=== PATIENT | male | born 1945 | race Caucasian/White ===

== ENCOUNTER 2022-05-21 13:13 | Outpatient (CLI) | payer MEDICARE, SELFPAY ==
--- NOTE | 2022-05-21 13:45 | CRLHL7_ITS ---
For Patients: As a result of the Century Cures Act, medical imaging exams and procedure reports are released immediately into your electronic medical record. You may view this report before your referring provider. If you have questions, please contact your health care provider. INDICATION: Bowel leg weakness. COMPARISON: 05/12/2022. TECHNIQUE: Sagittal T1, T2, and STIR sequences. Axial T1 and T2 weighted sequences. FINDINGS: Normal alignment. Chronic compression fracture and anterior wedging of the T12 vertebral body with postprocedural changes of kyphoplasty. No retropulsion of fracture fragments. No acute fractures. No evidence injury. No suspicious osseous lesions. Number conus terminates at L2. [id number]: No spinal canal neural foraminal narrowing. L1-2: Disc degeneration diffuse disc bulge eccentric to the left. No narrowing of spinal canal. No neural foraminal narrowing. L2-3: Mild disc degeneration. Diffuse disc bulge eccentric to the left. No narrowing of the spinal canal. No neural foraminal narrowing. L3-4: Disc degeneration posted disc bulge. No narrowing of spinal canal. No neural foraminal narrowing. L4-5: Disc degeneration posted disc bulge. No narrowing of the spinal canal. No neural foraminal narrowing. Mild facet arthropathy. L5-S1: Disc degeneration diffuse disc bulge eccentric to the left. No narrowing of spinal canal. Mild narrowing of the bilateral foramina. Mild facet arthropathy. Normal visualized SI joints. Normal paraspinal soft tissues. IMPRESSION: 1. Normal alignment. Chronic compression fracture and anterior wedging of the T12 vertebral body. 2. No acute fractures. 3. Lumbar spondylosis. 4. At L5-S1, disc degeneration. Diffuse disc bulge. No narrowing of the spinal canal. Mild narrowing of the bilateral neural foramina. 5. No spinal canal or neural foraminal narrowing at the remaining levels Dictated by Ke Siu MD @ 05/22/2022 2:03:41 PM (Electronically Signed)
== END 2022-05-21 13:14 | disposition home or self-care (01) ==
PROVIDERS: PCP Family Medicine; Visit Provider Family Medicine
DX: R29.898 Other symptoms and signs involving the musculoskeletal system (principal); M47.896 Other spondylosis, lumbar region; M51.37 Other intervertebral disc degeneration, lumbosacral region
CPT/HCPCS: 72148

== ENCOUNTER 2022-07-21 11:19 | Inpatient (IN) | payer MEDICARE, SELFPAY ==
[2022-07-21] VITALS (43 sets, daily range): BP systolic 107–147; BP diastolic 61–89; PULSE 74–122; RESP 18–26; TEMP 36.1–36.8; O2SAT 88–100; BMI 19.8; BMI 19.6
--- NOTE | 2022-07-21 12:26 | CRLHL7_ITS ---
For Patients: As a result of the Century Cures Act, medical imaging exams and procedure reports are released immediately into your electronic medical record. You may view this report before your referring provider. If you have questions, please contact your health care provider. INDICATION: Slurred speech, left facial droop, left leg weakness TECHNIQUE: Noncontrast Sagittal T1, Axial FSE T2, Flair, DWI images submitted. COMPARISON: None. FINDINGS: The scalp and calvarium are normal. The superior sagittal sinus demonstrates normal venous flow. The corpus callosum is normal in shape and signal intensity. The posterior fossa is unremarkable. The pituitary and sella are normal. The brainstem and craniocervical junction are unremarkable. The upper cervical spinal cord and spine are normal. 9 millimeter area within the right cerebellum displaying restricted diffusion with decreased associated ADC signal intensity. Associated increased T2 FLAIR signal intensities. Multifocal old bilateral basal ganglia and centrum semiovale and garcia radiata. The susceptibility weighted sequences reveal no evidence of acute or chronic hemorrhage. The ventricles are normal in size and position without evidence of hydrocephalus. There is mild, age-appropriate generalized atrophy. The axial FLAIR images show hyperintensities in the deep white matter, a nonspecific finding, however most commonly seen in the setting of chronic small vessel ischemic changes. Susceptibility artifacts degrades evaluation of the sinuses. Partial opacification of the mastoid air cells bilaterally. Normal flow voids are demonstrated in the carotid arteries and basilar artery. IMPRESSION: 1. Acute right cerebellar lacunar infarct. 2. Additional bilateral multifocal lacunar infarcts. Dictated by Vinicius Rob MD @ 07/21/2022 7:32:50 PM (Electronically Signed)
--- NOTE | 2022-07-21 12:27 | CRLHL7_ITS ---
For Patients: As a result of the Century Cures Act, medical imaging exams and procedure reports are released immediately into your electronic medical record. You may view this report before your referring provider. If you have questions, please contact your health care provider. Indication: Left hand cold, week Technique: Multi-planar multi-weighted magnetic resonance imaging of the cervical spine was performed without administration of intravenous contrast using the standard cervical spine protocol. COMPARISON: Brain MRI same day Findings: Sagittal images: The cervical spine is in the normal anatomic alignment. Vertebral bodies demonstrate normal signal intensity on all sequences. No acute fracture is identified. However, if trauma is suspected, a CT scan would be a more sensitive examination for fractures. The craniocervical junction is normal. The spinal cord demonstrates normal signal intensity on all sequences. Intervertebral disk heights show mild multilevel disc desiccation. No annular tear is identified. No soft tissue abnormality is identified. Normal signal voids are present in the vertebral arteries. Axial images: C2-3: Tiny bulge. There is no facet arthropathy. There is no uncovertebral joint disease. There is no foraminal stenosis. There is no spinal canal stenosis. C3-4: Small bulge. There is mild facet arthropathy. There is mild uncovertebral joint disease. There is moderate bilateral foraminal stenosis. There is mild spinal canal stenosis. C4-5: Small bulge. There is moderate facet arthropathy. There is moderate uncovertebral joint disease. There is moderate left and severe right foraminal stenosis. There is mild spinal canal stenosis. C5-6: Small bulge. There is mild facet arthropathy. There is mild uncovertebral joint disease. There is no foraminal stenosis. There is cjuh-[id number] spinal canal stenosis. C6-7: The disk is normal in configuration. There is no facet arthropathy. There is no uncovertebral joint disease. There is no foraminal stenosis. There is no spinal canal stenosis. C7-T1: The disk is normal in configuration. There is no facet arthropathy. There is no uncovertebral joint disease. There is no foraminal stenosis. There is no spinal canal stenosis. Impression: Multilevel areas of cervical spondylosis most prominent at C4 through C6 levels with disc osteophyte complexes and facet hypertrophy causing mild to [id number] spinal canal stenosis with areas of moderate to severe bilateral neuroforaminal narrowing. Dictated by Vinicius Rob MD @ 07/21/2022 7:37:31 PM (Electronically Signed)
--- NOTE | 2022-07-21 12:31 | ED_ITS ---
HPI - General Adult General Chief complaint: Weakness Stated complaint: Possible stroke: left side drooping,slurred speach Time Seen by Provider: 07/21/22 12:00 History of Present Illness HPI narrative: 77-year-old man presenting to the emergency department with his daughter with concern of slurred speech. Apparently was at a neurology appointment today and was directed here due to concern of potential stroke. Has had for maybe the last year weakness in the left leg. I am unaware what the findings in a E what sounds like lumbar MRI has been. Looks to be on a recent prednisone course. This has contributed to some falls, this leg weakness. Two and half days ago had fallen asleep in his chair and woke up on the floor. Was able to get himself up. Family upon following up with him the next morning has noticed the it he had some slurring of his speech which has persisted though overall improved as well as drooping of the left face which seems to have resolved. This slurring is still quite present though. He has also had repeated coldness and possibly some weakness in his left arm apparently prompting recommendations for cervical MRI. He has not had a stroke prior. Smokes what sounds like nearly a pack a day. He wakes every morning with severely dry mouth all stuck together and is also edentulous. Not having any complaints of pain at this time. Not short of breath. Lives independently with his . was recently hospitalized for pneumonia. Daughter notes that Mr. Rothman has been often incontinent of stool and urine. They maintain at the slurring of speech is independent of the dryness of his mouth; definitely new. Related Data Home Medications Medication Instructions Recorded Confirmed acetaminophen 500 mg tablet 1,000 mg PO Q6H PRN 05/12/22 08/04/22 (Tylenol Extra Strength) inulin 2 gram chewable tablet 2 g PO DAILY 07/21/22 08/04/22 (Fiber Gummies) vtqudnay-exknplrh-iruoo acid 400 1 tab PO DAILY 07/21/22 08/04/22 mcg-vit K 20 mcg-lycop 300 mcg tablet (Men's Daily Formula) Previous Rx's Medication Instructions Recorded apixaban 5 mg tablet (Eliquis) 5 mg PO BID #60 tabs 07/25/22 ferrous sulfate 325 mg (65 mg 325 mg PO DAILYWM #30 tabs 07/25/22 iron) tablet metoprolol succinate 25 mg 25 mg PO DAILY #30 tabs 07/25/22 tablet,extended release 24 hr rosuvastatin 10 mg tablet 20 mg PO HS #60 tabs 07/25/22 Allergies Allergy/AdvReac Type Severity Reaction Status Date / Time No Known Drug Allergies Allergy Verified 08/06/22 11:17 Review of Systems Status of ROS: Reports: 10 or more systems reviewed and unremarkable except as noted in History and below PFSH [facility] Medical History Cerebellar stroke Cervical spinal stenosis Cobalamin deficiency (12/2020) Cognitive impairment Frequent falls History of alcohol abuse History of TIA (transient ischemic attack) and stroke (2012) Incontinence of bowel Incontinence of urine Iron deficiency anemia Left knee pain (11/2020) Leg weakness, bilateral Multiple lacunar infarcts Pneumonia Right knee pain (1970) Surgical History History of cataract extraction History of colectomy (2014) History of repair of left rotator cuff (2008) Status post kyphoplasty Family History Sister Diabetes Other Cancer Social History Narrative: He lives with his in [place]. She has been hospitalized for the last week. Daughter Jannette is POA. Code status is full. 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 Tobacco abuse 1-2 packs per day Does not exercise Highest level of school completed/degree received: 10th grade Smoking Status: Former smoker Do you use any of these nicotine containing products: None Second hand tobacco smoke exposure: Yes How often do you have a drink containing alcohol: monthly or less Alcohol type: beer How many standard drinks containing alcohol do you have on a typical day: 1 or 2 How often do you have six or more drinks on one occasion: Never AUDIT-C Alcohol total score: 1 Non-prescribed substance use: denies use Caffeine: Yes (soda) service: No Exam Narrative: Exam Narrative: Pleasant man. Hard of hearing. Hears better on his right ear. Speech is slurred generally but easily intelligible. Clearly edentulous. Oropharynx and lips are extremely dry. Fissuring of the tongue. Extremities are well perfused. Hands nails are stained consistent with cigarette smoking. Lower extremities with 1+ pitting edema around the ankle and the foot. Nails are thickened yellowed generally. Cranial nerves 2-12 look to be intact the than as noted he is slurring his speech. I do not appreciate weakness here now i.e. no facial drooping. Appears to have good strength in the upper extremities again will perfused. Neck is supple. Fully alert. Lungs with diminished breath sounds and trace crepitus diffusely. Cardiovascular with regular rate and rhythm amount auscultation. Abdomen is protuberant soft nontender. I did not examine the absolute deep coccygeal space but does not appear to have any skin breakdown on his person or concerning rashes. Head is otherwise atraumatic. He is bearded. Tobacco stained. Const: Vital Signs, click to edit/add: Vital Signs - 24 hr 07/21/22 11:32 07/21/22 11:45 07/21/22 11:57 Temperature 97.0 F L Pulse Rate 122 H 117 H Pulse Rate [Right Pulse Oximeter] 74 Respiratory Rate 18 Blood Pressure 107/74 Blood Pressure [Ri ght Upper Arm] 108/61 Pulse Oximetry 88 92 97 Oxygen Delivery Me thod Room Air Oxygen Flow Rate 07/21/22 12:00 07/21/22 12:02 07/21/22 12:03 Temperature Pulse Rate 115 H 114 H 113 H Pulse Rate [Right Pulse Oximeter] Respiratory Rate Blood Pressure 123/73 Blood Pressure [Ri ght Upper Arm] Pulse Oximetry 95 95 95 Oxygen Delivery Me thod Oxygen Flow Rate 07/21/22 12:15 07/21/22 12:30 07/21/22 12:31 Temperature Pulse Rate 116 H 114 H 111 H Pulse Rate [Right Pulse Oximeter] Respiratory Rate Blood Pressure 128/82 Blood Pressure [Ri ght Upper Arm] Pulse Oximetry 95 97 97 Oxygen Delivery Me thod Oxygen Flow Rate 07/21/22 12:56 07/21/22 13:00 07/21/22 13:02 Temperature Pulse Rate 112 H 112 H 112 H Pulse Rate [Right Pulse Oximeter] Respiratory Rate Blood Pressure 124/83 Blood Pressure [Ri ght Upper Arm] Pulse Oximetry 97 98 98 Oxygen Delivery Me thod Nasal Cannula Oxygen Flow Rate 2 07/21/22 13:15 07/21/22 13:30 07/21/22 13:32 Temperature Pulse Rate 112 H 109 H 109 H Pulse Rate [Right Pulse Oximeter] Respiratory Rate Blood Pressure 141/75 H Blood Pressure [Ri ght Upper Arm] Pulse Oximetry 96 97 98 Oxygen Delivery Me thod Nasal Cannula Nasal Cannula Nasal Cannula Oxygen Flow Rate 2 2 2 07/21/22 13:45 07/21/22 14:35 07/21/22 12:35 Temperature Pulse Rate 105 H Pulse Rate [Right Pulse Oximeter] 105 H Respiratory Rate 26 H Blood Pressure Blood Pressure [Ri ght Upper Arm] Pulse Oximetry 98 98 88 Oxygen Delivery Me thod Nasal Cannula Nasal Cannula Oxygen Flow Rate 2 2 Documenting provider has reviewed patient's vital signs: yes Course Course Hospital Course: Ryder is a very pleasant 77-year-old male who presented to the emergency room with his daughter on 07/21 at the behest of his neurologist (Dr. Beatty at [facility] in [place]) Force alert speech, in addition to acute on chronic lower extremity weakness, and fairly new urinary and bowel incontinence. In the emergency room, patient was subsequently diagnosed with a cerebellar CVA, PE, atypical pneumonia, and elevated troponin. He was admitted to the hospital, placed on a statin and Eliquis. Troponins were followed and peaked at 0.19; TTE findings noted above. Metoprolol initiated. Patient did not have chest pain during stay, weaned off low dose supplemental oxygen on hospital day 2. He was treated with Levaquin for pneumonia and tolerated this well; his QuantiFERON gold was negative and there was no concern for aspiration by speech therapy. Hospital course complicated by acute on chronic anemia ( normocytic, presumably iron deficient based on labs), hemoglobin rolando of 7.0, requiring 1 unit of PRBCs. + Guaiac. Given concern for bleeding, EGD performed to rule out acute upper GI bleed. no acute bleeding noted; however, patient did have a bezoar in his stomach, and recommendation is to repeat EGD in 4-6 weeks for re-evaluation. Patient will also require an outpatient colonoscopy, and he will be discharged on iron supplementation. Given patient's weakness and incontinence, MRI of lumbar spine performed without acute findings. He was seen by PT and OT, who recommended TCU placement upon discharge. Patient was medically cleared and appropriate for discharge to TCU on 07/25/2022. Follow-up recommendations for PCP: - Follow hemoglobin. Repeat EGD in 4-6 weeks, outpatient colonoscopy to evaluate anemia - Cardiology referral for NSTEMI, hypokinesis on TTE - Neurology follow-up for recent CVA Vital Signs Vital signs: Initial Vital Signs Temperature 97.0 F L 07/21/22 11:32 Temperature Source Temporal Artery Scan 07/21/22 11:32 Pulse Rate 74 07/21/22 11:32 Respiratory Rate 18 07/21/22 11:32 Blood Pressure 108/61 07/21/22 11:32 Blood Pressure Mean 76 07/21/22 11:32 Blood Pressure Position Sitting 07/21/22 11:32 Pulse Oximetry 88 07/21/22 11:32 Oxygen Delivery Method 07/21/22 11:32 Vital Signs Temperature 97.0 F L 07/21/22 11:32 Pulse Rate 74 07/21/22 11:32 Respiratory Rate 18 07/21/22 11:32 Blood Pressure 108/61 07/21/22 11:32 Pulse Oximetry 88 07/21/22 11:32 Oxygen Delivery Method 07/21/22 11:32 Temperature 98.0 F 07/25/22 11:49 Pulse Rate 99 07/25/22 11:49 Respiratory Rate 18 07/25/22 11:49 Blood Pressure 122/69 07/25/22 11:49 Pulse Oximetry 99 07/25/22 07:45 Oxygen Delivery Method 07/25/22 07:45 Oxygen Flow Rate 0 07/25/22 07:45 Medical Decision Making MDM Narrative Medical decision making narrative: Is evidently a requested by neuro will attempt to obtain MRI of the brain. Also the neck. This does not sound to be an acute situation or subacute. Unclear amount of down time though on the floor will also add CPK and hydration. Presumably is dehydrated. Unsure baseline of hypoxia in the setting of heavy smoker. MRI showing lacunar strokes. Cervical spine MRI with qxwa-zj-yfesgrpf spinal canal stenosis and bilateral foraminal narrowing at various levels. Rather elevated white count at over 20,000. Edema verses possible infiltrate on chest x-ray-I did review these images. I suspect infiltrate. CT chest-I did review these images-radiologist over-read as below. I discussed findings with radiologist. IMPRESSION: 1. There is a low clot burden pulmonary embolus primarily involving the right lower lobe. There is no evidence of right heart strain. 2. Innumerable nodules primarily at the lung bases which appear to be related to the bronchi. There are also numerous cavitary lesions at the lung bases that are thick walled. This probably does not represent hematogenous dissemination of infections such as septic emboli and is probably due to atypical infection. Consider chronic recurrent aspiration, fungal disease or mycobacterial disease. Admitted to hospitalist. Lab Data Lab results reviewed: Yes I reviewed the patient's lab results Labs: Lab Results 07/21/22 07/21/22 07/21/22 Range/Units 11:55 13:15 13:15 WBC 20.70 H (4.50-11.00) K/uL RBC 3.40 L (4.30-5.90) m/uL Hgb 10.4 L (13.5-17.5) gm/dL Hct 32.0 L (37.0-53.0) % MCV 94 (80-100) fL MCH 31 (26-34) pg MCHC 33 (32-36) gm/dL RDW Coeff of Isabel 14.8 (11.5-15.5) % Plt Count 466 H (140-440) K/uL Neut % (Auto) 92.5 H (42.0-72.0) % Lymph % (Auto) 4.0 L (20-44) % [place] % (Auto) 3.2 (0.0-11.0) % Eos % (Auto) 0.0 (0.0-7.0) % Baso % (Auto) 0.0 (0.0-3.0) % Neut # (Auto) 19.10 H (1.7-7.0) K/uL Lymph # (Auto) 0.80 L (0.90-2.90) K/uL [place] # (Auto) 0.70 (0.00-0.90) K/UL Eos # (Auto) 0.00 (0.00-0.50) K/uL Baso # (Auto) 0.00 (0.00-0.30) K/uL Abs Immat Gran (auto) 0.10 (0.00-0.30) K/uL Imm/Tot Granulo (auto) 0.3 % D-Dimer Quant (PE/DVT) (0.00-0.50) ug/ml VBG pH (7.32-7.43) VBG pCO2 (40-50) mmHG VBG pO2 (25-47) mmHG VBG HCO3 (21-28) mmol/L Sodium 144 (135-149) mmol/L Potassium 4.4 (3.6-5.1) mmol/L Chloride 113 (96-114) mmol/L Carbon Dioxide 23 (20-32) mmol/L BUN 39 H (7-30) mg/dL Creatinine 1.5 (0.5-1.5) mg/dL Estimated Creat Clear 34.94 Estimated GFR 48 ml/min Glucose 217 H (60-115) mg/dL Venous Lactic Acid (Serial Order) Calcium 8.8 (8.4-10.6) mg/dL Magnesium (1.5-2.6) mg/dL Total Bilirubin (0.1-1.5) mg/dL Direct Bilirubin (0.0-0.5) mg/dL AST (12-35) U/L ALT (4-50) U/L Alkaline Phosphatase (40-150) U/L Total Creatine Kinase 94 (54-186) U/L Troponin I (0.01-0.04) ng/mL C-Reactive Protein 22.0 H (0.5-1.0) mg/dL NT-Pro-B Natriuret Pep pg/mL Total Protein (6.0-8.3) g/dL Albumin (3.3-5.0) g/dL Ethyl Alcohol (0.01-0.03) % SARS-CoV-2 (PCR) Negative SARS-CoV-2 (Negative) HIV 1&2 Ab/P24 Ag 4thGn (Negative) Influenza Type A (PCR) Negative PCR FLU A (Negative) Influenza Type B (PCR) Negative PCR FLU B (Negative) RSV (PCR) Negative PCR RSV (Negative) TB Test (QFT) Gold Plus (Negative) 07/21/22 07/21/22 07/21/22 Range/Units 13:15 13:15 13:15 WBC (4.50-11.00) K/uL RBC (4.30-5.90) m/uL Hgb (13.5-17.5) gm/dL Hct (37.0-53.0) % MCV (80-100) fL MCH (26-34) pg MCHC (32-36) gm/dL RDW Coeff of Isabel (11.5-15.5) % Plt Count (140-440) K/uL Neut % (Auto) (42.0-72.0) % Lymph % (Auto) (20-44) % [place] % (Auto) (0.0-11.0) % Eos % (Auto) (0.0-7.0) % Baso % (Auto) (0.0-3.0) % Neut # (Auto) (1.7-7.0) K/uL Lymph # (Auto) (0.90-2.90) K/uL [place] # (Auto) (0.00-0.90) K/UL Eos # (Auto) (0.00-0.50) K/uL Baso # (Auto) (0.00-0.30) K/uL Abs Immat Gran (auto) (0.00-0.30) K/uL Imm/Tot Granulo (auto) % D-Dimer Quant (PE/DVT) 8.41 H (0.00-0.50) ug/ml VBG pH (7.32-7.43) VBG pCO2 (40-50) mmHG VBG pO2 (25-47) mmHG VBG HCO3 (21-28) mmol/L Sodium (135-149) mmol/L Potassium (3.6-5.1) mmol/L Chloride (96-114) mmol/L Carbon Dioxide (20-32) mmol/L BUN (7-30) mg/dL Creatinine (0.5-1.5) mg/dL Estimated Creat Clear Estimated GFR ml/min Glucose (60-115) mg/dL Venous Lactic Acid (Serial Order) Calcium (8.4-10.6) mg/dL Magnesium 2.6 (1.5-2.6) mg/dL Total Bilirubin 1.2 (0.1-1.5) mg/dL Direct Bilirubin 0.8 H (0.0-0.5) mg/dL AST 35 (12-35) U/L ALT 17 (4-50) U/L Alkaline Phosphatase 154 H (40-150) U/L Total Creatine Kinase (54-186) U/L Troponin I 0.13 H* (0.01-0.04) ng/mL C-Reactive Protein (0.5-1.0) mg/dL NT-Pro-B Natriuret Pep 9630 pg/mL Total Protein 7.1 (6.0-8.3) g/dL Albumin 3.3 (3.3-5.0) g/dL Ethyl Alcohol < 0.01 L (0.01-0.03) % SARS-CoV-2 (PCR) (Negative) HIV 1&2 Ab/P24 Ag 4thGn (Negative) Influenza Type A (PCR) (Negative) Influenza Type B (PCR) (Negative) RSV (PCR) (Negative) TB Test (QFT) Gold Plus (Negative) 07/21/22 07/21/22 07/21/22 Range/Units 13:15 17:24 17:24 WBC (4.50-11.00) K/uL RBC (4.30-5.90) m/uL Hgb (13.5-17.5) gm/dL Hct (37.0-53.0) % MCV (80-100) fL MCH (26-34) pg MCHC (32-36) gm/dL RDW Coeff of Isabel (11.5-15.5) % Plt Count (140-440) K/uL Neut % (Auto) (42.0-72.0) % Lymph % (Auto) (20-44) % [place] % (Auto) (0.0-11.0) % Eos % (Auto) (0.0-7.0) % Baso % (Auto) (0.0-3.0) % Neut # (Auto) (1.7-7.0) K/uL Lymph # (Auto) (0.90-2.90) K/uL [place] # (Auto) (0.00-0.90) K/UL Eos # (Auto) (0.00-0.50) K/uL Baso # (Auto) (0.00-0.30) K/uL Abs Immat Gran (auto) (0.00-0.30) K/uL Imm/Tot Granulo (auto) % D-Dimer Quant (PE/DVT) (0.00-0.50) ug/ml VBG pH 7.408 (7.32-7.43) VBG pCO2 37 L (40-50) mmHG VBG pO2 32.3 (25-47) mmHG VBG HCO3 23 (21-28) mmol/L Sodium (135-149) mmol/L Potassium (3.6-5.1) mmol/L Chloride (96-114) mmol/L Carbon Dioxide (20-32) mmol/L BUN (7-30) mg/dL Creatinine (0.5-1.5) mg/dL Estimated Creat Clear Estimated GFR ml/min Glucose (60-115) mg/dL Venous Lactic Acid (Serial Order) Calcium (8.4-10.6) mg/dL Magnesium (1.5-2.6) mg/dL Total Bilirubin (0.1-1.5) mg/dL Direct Bilirubin (0.0-0.5) mg/dL AST (12-35) U/L ALT (4-50) U/L Alkaline Phosphatase (40-150) U/L Total Creatine Kinase (54-186) U/L Troponin I (0.01-0.04) ng/mL C-Reactive Protein (0.5-1.0) mg/dL NT-Pro-B Natriuret Pep pg/mL Total Protein (6.0-8.3) g/dL Albumin (3.3-5.0) g/dL Ethyl Alcohol (0.01-0.03) % SARS-CoV-2 (PCR) (Negative) HIV 1&2 Ab/P24 Ag 4thGn Negative (Negative) Influenza Type A (PCR) (Negative) Influenza Type B (PCR) (Negative) RSV (PCR) (Negative) TB Test (QFT) Gold Plus Negative (Negative) ECG Data Attestation: I personally reviewed and interpreted this ECG as follows: (Sinus tachycardia rate 105) Discharge Plan Discharge Clinical Impression: Pulmonary emboli, Pneumonia Patient Disposition: Admitted As Inpatient Condition: Stable Activity Level: Activity as Tolerated Discharge Diet: Regular
--- NOTE | 2022-07-21 12:32 | CRLHL7_ITS ---
For Patients: As a result of the Century Cures Act, medical imaging exams and procedure reports are released immediately into your electronic medical record. You may view this report before your referring provider. If you have questions, please contact your health care provider. INDICATION: hypoxia TECHNIQUE: Chest 2 views COMPARISON: CT chest 06/06/2015 FINDINGS: Patchy ill-defined densities are present throughout both lungs. No pleural effusion or pneumothorax. Cardiac silhouette is normal. IMPRESSION: Patchy airspace densities bilaterally could represent pulmonary edema or infiltrates. Dictated by Vinicius Castro MD @ 07/21/2022 1:16:57 PM (Electronically Signed)
[2022-07-21 12:44] LABS: PCR FLU A Negative PCR FLU A (Negative); PCR FLU B Negative PCR FLU B (Negative); PCR RSV Negative PCR RSV (Negative)
[2022-07-21 12:52] LABS: SARS PCR* Negative SARS-CoV-2 (Negative)
[2022-07-21] MEDS: 0.9 % SODIUM CHLORIDE 1000 ml 1,000 ML IV (13:00)
[2022-07-21 13:37] LABS: Hemoglobin* 10.4 gm/dL (13.5-17.5); Immature Granulocytes Pct Auto 0.3 %; Mean Corpuscular HGB Conc 33 gm/dL (32-36); Mean Corpuscular Hemoglobin 31 pg (26-34); Mean Corpuscular Volume 94 fL (80-100); Monocytes Percent Auto 3.2 % (0.0-11.0); Neutrophils Percent Auto 92.5 % (42.0-72.0); Platelet Count* 466 K/uL (140-440); RDW Coefficient of Variation % 14.8 % (11.5-15.5)
[2022-07-21 13:38] LABS: Lactate Sepsis w/Reflex* 2.3 mmol/L (0.5-1.9); Slide Review Reflex No
--- NOTE | 2022-07-21 14:00 | ED.NURSE ---
hs aware of possible admit. has been taking ice chips.
[2022-07-21 14:02] LABS: D Dimer Quantitative* 8.41 ug/ml (0.00-0.50)
--- NOTE | 2022-07-21 14:14 | CRLHL7_ITS ---
For Patients: As a result of the Century Cures Act, medical imaging exams and procedure reports are released immediately into your electronic medical record. You may view this report before your referring provider. If you have questions, please contact your health care provider. INDICATION: Hypoxia with question of pneumonia. COMPARISON: A prior study of June 06, 2015 TECHNIQUE: : CT examination of the chest was performed with the uneventful intravenous administration of 100 cc of Omnipaque 350 while thin axial sections were obtained from above the apices of the lungs to the lung bases. Please note that all CT scans at this facility use dose modulation, iterative reconstruction, and/or weight-based dosing when appropriate to reduce radiation dose to as low as reasonably achievable. FINDINGS: : HEART and MEDIASTINUM: The heart size is normal. There are mildly prominent mediastinal lymph nodes are likely reactive. Thickening of the esophagus probably due to chronic reflux. Follow-up evaluation recommended PULMONARY ARTERIAL CIRCULATION: There is a low clot burden pulmonary embolus. This is best seen in the right lower lobe on series 4, image 103. There is no evidence of right heart strain. LUNGS: Biapical pleural-parenchymal scarring which predated the current abnormality. There is marked diffuse nodularity primarily at the lung bases. There are also numerous thick-walled cavitary lesions primarily at the lung bases. These are probably not hematogenous type lesions as can be seen is septic emboli but appear to be primarily hayde-bronchiolar suggesting bronchial spread of infection. This could still represent hematogenous disseminated of infection or malignancy. My favored diagnosis is atypical infection perhaps fungal or mycobacterial disease. This could also be seen in chronic recurrent aspiration. Some forms of vasculitis may create this appearance. Pulmonary consultation is recommended. PLEURAL SPACES: There is no pleural effusion, pneumothorax or pleural based mass. VISUALIZED UPPER ABDOMEN: The limited visualized upper abdominal structures appear normal. OSSEOUS STRUCTURES: Age-appropriate appearance. No acute fracture or destructive process.There has been a kyphoplasty of a vertebral body near the thoracolumbar junction TUBES and LINES: None. I discussed this case with Vinicius Vidal at 4 p.m. on July 21, 2022 IMPRESSION: 1. There is a low clot burden pulmonary embolus primarily involving the right lower lobe. There is no evidence of right heart strain. 2. Innumerable nodules primarily at the lung bases which appear to be related to the bronchi. There are also numerous cavitary lesions at the lung bases that are thick walled. This probably does not represent hematogenous dissemination of infections such as septic emboli and is probably due to atypical infection. Consider chronic recurrent aspiration, fungal disease or mycobacterial disease. Please note that all CT scans at this facility use dose modulation, iterative reconstruction, and/or weight-based dosing when appropriate to reduce radiation dose to as low as reasonably achievable. Dictated by Mundo Banuelos MD @ 07/21/2022 4:06:30 PM (Electronically Signed)
[2022-07-21 14:15] LABS: Chloride* 113 mmol/L (96-114); Potassium* 4.4 mmol/L (3.6-5.1); Sodium* 144 mmol/L (135-149)
[2022-07-21 14:18] LABS: Blood Urea Nitrogen* 39 mg/dL (7-30); Carbon Dioxide* 23 mmol/L (20-32); Creatine Kinase* 94 U/L (54-186); Creatinine* 1.5 mg/dL (0.5-1.5); Est. Creatinine Clearance* 34.94; Estimated Glomerular Filt Rate 48 ml/min
--- NOTE | 2022-07-21 14:18 | ED.NURSE ---
had an episode of psvt that spontaneously converted back to sinus.
[2022-07-21 14:19] LABS: Calcium* 8.8 mg/dL (8.4-10.6); Glucose* 217 mg/dL (60-115)
[2022-07-21 14:41] LABS: Albumin* 3.3 g/dL (3.3-5.0)
[2022-07-21 14:54] LABS: Lactate Sepsis 2 Hour 1.7 mmol/L (0.5-1.9)
[2022-07-21 14:56] LABS: NT Pro B Type NatriureticPept* 9630 pg/mL
[2022-07-21 15:07] LABS: Troponin I* 0.13 ng/mL (0.01-0.04)
--- NOTE | 2022-07-21 15:08 | PC.NURSE ---
trop 0.13, reported to Dr Vidal
[2022-07-21 15:40] LABS: Aspartate Amino Transferase* 35 U/L (12-35); Bilirubin Direct* 0.8 mg/dL (0.0-0.5); Bilirubin Total* 1.2 mg/dL (0.1-1.5); Total Protein* 7.1 g/dL (6.0-8.3)
[2022-07-21 15:41] LABS: Alanine Aminotransferase* 17 U/L (4-50); Alkaline Phosphatase* 154 U/L (40-150); Ethanol* < 0.01 % (0.01-0.03); Magnesium* 2.6 mg/dL (1.5-2.6)
--- NOTE | 2022-07-21 16:06 | ED.NURSE ---
dr kennedy in room, is interviewing pt.
--- NOTE | 2022-07-21 17:02 | ED.NURSE ---
report was called to jaqui yen. will be going to 274-negative pressure room~1800.
[2022-07-21 17:30] LABS: HCO3 VBG 23 mmol/L (21-28); PCO2 VBG 37 mmHG (40-50); PO2 VBG 32.3 mmHG (25-47); pH VBG 7.408 (7.32-7.43)
[2022-07-21 17:46] LABS: HIV 1/2/P24 Combo Screen* Negative (Negative)
--- NOTE | 2022-07-21 19:40 | P.IMHP_ITS ---
Hospitalist- H&P: HPI History of Present Illness Date Seen: 07/21/22 Chief complaint: Possible stroke Narrative: Ryder Rothman is a 77 year old male admitted with acute on chronic weakness. Patient has had progressive problems with ambulation with frequent falls at home. He went to the neurologist's today where he was seen to have evidence of a stroke. He was referred to the emergency room for evaluation. Patient is unable to give much detail of his history. His son-in-law who is present indicates that Thursday morning he had clear evidence of left-sided weakness. He had fallen out of a chair and had difficulty getting up. He was having some difficulties with his left face drooping his left arm and leg being weak. He was drooling out of the left corner of his mouth. He was having some slurring of his speech. All of this has gotten somewhat better over the weekend. Prior to Thursday he had also had problems walking with weakness in his legs. The neurologist was evaluating him for that chronic weakness and imbalance. His was hospitalized here for a week with pneumococcal pneumonia. She just went home yesterday. He has had a cough productive of yellow sputum. He has COPD and is an ongoing smoker. He has had some recent diarrhea. No vomiting. He does report chronic rectal and urinary incontinence problems. Daughter, Jannette, her have both noted that he is more forgetful and occasionally confused. Review of Systems Narrative: Patient is unable to give much review of systems the above history is primarily obtained from the son-in-law and the medical record. [facility] Medical History (Updated 07/21/22 @ 20:28 by Romeo Godoy MD) Cerebellar stroke Cervical spinal stenosis Cobalamin deficiency (12/2020) Frequent falls History of alcohol abuse History of TIA (transient ischemic attack) and stroke (2012) Left knee pain (11/2020) Multiple lacunar infarcts Right knee pain (1970) Surgical History History of cataract extraction History of colectomy (2014) History of repair of left rotator cuff (2008) Status post kyphoplasty Family History Sister Diabetes Other Cancer Social History (Updated 07/21/22 @ 20:19 by Romeo Godoy MD) Narrative: He lives with his in [place]. She has been hospitalized for the last week. Daughter Jannette is POA. Code status is full. 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 Tobacco abuse 1-2 packs per day Does not exercise Smoking Status: Current every day smoker What tobacco products do you use: cigarettes Years smoked: 62 Do you use any of these nicotine containing products: None Second hand tobacco smoke exposure: Yes How often do you have a drink containing alcohol: monthly or less How many standard drinks containing alcohol do you have on a typical day: 1 or 2 AUDIT-C Alcohol total score: 1 Non-prescribed substance use: denies use service: No Meds Home Medications and Allergies Home Medications Medication Instructions Recorded Confirmed Type acetaminophen 500 mg tablet 1,000 mg PO Q6H PRN 05/12/22 07/21/22 History (Tylenol Extra Strength) aspirin 81 mg tablet,delayed 81 mg PO DAILY 07/21/22 07/21/22 History release (Adult Aspirin Regimen) inulin 2 gram chewable tablet 2 g PO DAILY 07/21/22 07/21/22 History (Fiber Gummies) jhzpqvax-smxolysi-bmcra acid 400 1 tab PO DAILY 07/21/22 07/21/22 History mcg-vit K 20 mcg-lycop 300 mcg tablet (Men's Daily Formula) Allergies Allergy/AdvReac Type Severity Reaction Status Date / Time No Known Drug Allergies Allergy Verified 07/21/22 14:58 Exam Narrative: Exam Narrative: He is alert and appears in no distress. His speech is somewhat difficult to understand. According to the son-in-law this is a little worse than usual. He has a very dry mouth and a prominent tongue and his dentures are absent. He is otherwise fluent with his speech and has no word-finding difficulties. Also has no problems with his speech comprehension. Minimal to no facial asymmetry. He has intact sensation to both sides of his face. Extraocular movements are full. Visual carmen are intact. No obvious visual field neglect. Pupils are equal round and reactive to light. Neck is supple without mass or adenopathy. Respirations with diminished breath sounds throughout. BiBasilar crackles noted. Cardiovascular: S1, S2, regular tachycardia. No gallop or rub. Abdomen: Bowel sounds active. Abdomen is soft without tenderness or mass. Extremities without significant edema. Diminished pedal pulses bilaterally. No rash. Upper extremity strength on the right is normal. 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 Kvkfnh-xhux-btsxqn is relatively accurate and rapid bilaterally. Lower extremities with 4/5 strength on the left at the knee and hip. He can barely lift his left leg off the bed. He has difficulty with hip flexion, knee flexion and extension. Dorsiflexion of the left ankle and toes is 4- over 5 as is plantar flexion of the left foot. Right lower extremity is normal. He is unable to do heel jasmine with either leg. The left leg cannot even get the heel to the jasmine Const: Vital Signs, click to edit/add: Vital Signs - 24 hr 07/21/22 11:32 07/21/22 11:45 07/21/22 11:57 Temperature 97.0 F L Pulse Rate 122 H 117 H Pulse Rate [Right Pulse Oximeter] 74 Respiratory Rate 18 Blood Pressure 107/74 Blood Pressure [Ri ght Upper Arm] 108/61 Pulse Oximetry 88 92 97 Oxygen Delivery Me thod Room Air Oxygen Flow Rate 07/21/22 12:00 07/21/22 12:02 07/21/22 12:03 Temperature Pulse Rate 115 H 114 H 113 H Pulse Rate [Right Pulse Oximeter] Respiratory Rate Blood Pressure 123/73 Blood Pressure [Ri ght Upper Arm] Pulse Oximetry 95 95 95 Oxygen Delivery Me thod Oxygen Flow Rate 07/21/22 12:15 07/21/22 12:30 07/21/22 12:31 Temperature Pulse Rate 116 H 114 H 111 H Pulse Rate [Right Pulse Oximeter] Respiratory Rate Blood Pressure 128/82 Blood Pressure [Ri ght Upper Arm] Pulse Oximetry 95 97 97 Oxygen Delivery Me thod Oxygen Flow Rate 07/21/22 12:56 07/21/22 13:00 07/21/22 13:02 Temperature Pulse Rate 112 H 112 H 112 H Pulse Rate [Right Pulse Oximeter] Respiratory Rate Blood Pressure 124/83 Blood Pressure [Ri ght Upper Arm] Pulse Oximetry 97 98 98 Oxygen Delivery Me thod Nasal Cannula Oxygen Flow Rate 2 07/21/22 13:15 07/21/22 13:30 07/21/22 13:32 Temperature Pulse Rate 112 H 109 H 109 H Pulse Rate [Right Pulse Oximeter] Respiratory Rate Blood Pressure 141/75 H Blood Pressure [Ri ght Upper Arm] Pulse Oximetry 96 97 98 Oxygen Delivery Me thod Nasal Cannula Nasal Cannula Nasal Cannula Oxygen Flow Rate 2 2 2 07/21/22 13:45 07/21/22 14:35 07/21/22 12:35 Temperature Pulse Rate 105 H Pulse Rate [Right Pulse Oximeter] 105 H Respiratory Rate 26 H Blood Pressure Blood Pressure [Ri ght Upper Arm] Pulse Oximetry 98 98 88 Oxygen Delivery Me thod Nasal Cannula Nasal Cannula Oxygen Flow Rate 2 2 07/21/22 14:00 07/21/22 14:02 07/21/22 14:15 Temperature Pulse Rate 105 H 104 H 104 H Pulse Rate [Right Pulse Oximeter] Respiratory Rate Blood Pressure 147/89 H Blood Pressure [Ri ght Upper Arm] Pulse Oximetry 98 99 98 Oxygen Delivery Me thod Oxygen Flow Rate 07/21/22 14:30 07/21/22 14:32 07/21/22 14:45 Temperature Pulse Rate 104 H 104 H 103 H Pulse Rate [Right Pulse Oximeter] Respiratory Rate Blood Pressure 133/74 Blood Pressure [Ri ght Upper Arm] Pulse Oximetry 98 98 98 Oxygen Delivery Me thod Oxygen Flow Rate 07/21/22 15:09 07/21/22 15:15 07/21/22 15:30 Temperature Pulse Rate 104 H 103 H 97 Pulse Rate [Right Pulse Oximeter] Respiratory Rate Blood Pressure Blood Pressure [Ri ght Upper Arm] Pulse Oximetry 100 98 98 Oxygen Delivery Me thod Nasal Cannula Nasal Cannula Oxygen Flow Rate 2 2 07/21/22 15:32 07/21/22 15:45 07/21/22 16:00 Temperature Pulse Rate 97 100 105 H Pulse Rate [Right Pulse Oximeter] Respiratory Rate Blood Pressure 123/68 Blood Pressure [Ri ght Upper Arm] Pulse Oximetry 98 98 95 Oxygen Delivery Me thod Nasal Cannula Nasal Cannula Nasal Cannula Oxygen Flow Rate 2 2 2 07/21/22 16:02 07/21/22 16:15 07/21/22 16:30 Temperature Pulse Rate 105 H 107 H 107 H Pulse Rate [Right Pulse Oximeter] Respiratory Rate Blood Pressure 118/78 Blood Pressure [Ri ght Upper Arm] Pulse Oximetry 96 96 97 Oxygen Delivery Me thod Nasal Cannula Oxygen Flow Rate 2 07/21/22 16:33 07/21/22 16:45 07/21/22 17:00 Temperature Pulse Rate 105 H 103 H 100 Pulse Rate [Right Pulse Oximeter] Respiratory Rate Blood Pressure 134/74 Blood Pressure [Ri ght Upper Arm] Pulse Oximetry 97 98 97 Oxygen Delivery Me thod Oxygen Flow Rate 07/21/22 17:01 Temperature Pulse Rate 100 Pulse Rate [Right Pulse Oximeter] Respiratory Rate Blood Pressure 118/70 Blood Pressure [Ri ght Upper Arm] Pulse Oximetry 97 Oxygen Delivery Me thod Oxygen Flow Rate Documenting provider has reviewed patient's vital signs: yes Hospitalist - H&P: Result Labs Labs: Short CBC 07/21/22 Range/Units 13:15 WBC 20.70 H (4.50-11.00) K/uL Hgb 10.4 L (13.5-17.5) gm/dL Hct 32.0 L (37.0-53.0) % Plt Count 466 H (140-440) K/uL BMP 07/21/22 13:15 Sodium 144 Potassium 4.4 Chloride 113 Carbon Dioxide 23 BUN 39 H Creatinine 1.5 Glucose 217 H Calcium 8.8 Cardiac Enzymes 07/21/22 07/21/22 Range/Units 13:15 13:15 Total Creatine Kinase 94 (54-186) U/L Troponin I 0.13 H* (0.01-0.04) ng/mL Liver Function 07/21/22 Range/Units 13:15 Total Bilirubin 1.2 (0.1-1.5) mg/dL Direct Bilirubin 0.8 H (0.0-0.5) mg/dL AST 35 (12-35) U/L ALT 17 (4-50) U/L Alkaline Phosphatase 154 H (40-150) U/L Albumin 3.3 (3.3-5.0) g/dL Imaging MRI - head: Radiologist's impression: IMPRESSION: 1. Acute right cerebellar lacunar infarct. 2. Additional bilateral multifocal lacunar infarcts. MRI C-spine: Radiologist's impression: Impression: Multilevel areas of cervical spondylosis most prominent at C4 through C6 levels with disc osteophyte complexes and facet hypertrophy causing mild to kjkb-gq-[id number] spinal canal stenosis with areas of moderate to severe bilateral neuroforaminal narrowing. CT scan - chest: Radiologist's impression: IMPRESSION: 1. There is a low clot burden pulmonary embolus primarily involving the right lower lobe. There is no evidence of right heart strain. 2. Innumerable nodules primarily at the lung bases which appear to be related to the bronchi. There are also numerous cavitary lesions at the lung bases that are thick walled. This probably does not represent hematogenous dissemination of infections such as septic emboli and is probably due to atypical infection. Consider chronic recurrent aspiration, fungal disease or mycobacterial disease. Assessment and Plan Assessment and plan (1) Cerebellar stroke: Problem comment: Acute, likely 3-day-old based on family history. Will use anticoagulation rather than antiplatelet therapy due to PE. Statin and PT OT Status: Acute (2) Leg weakness, bilateral: Problem comment: Chronic. Therapy to assess. Status: Acute (3) Pulmonary emboli: Status: Acute (4) Anemia: Problem comment: Chronic, monitor for bleeding Status: Acute (5) Multiple lacunar infarcts: Problem comment: Likely the cause of his chronic weakness and falls Status: Acute (6) Cervical spinal stenosis: Status: Acute (7) Frequent falls: Status: Acute (8) Pneumonia: Problem comment: Atypical presentation. Suspect recurrent aspiration. Status: Acute (9) Hypertension: Problem comment: Now 3 days out will begin blood pressure treatment. Status: Acute Plan Admit to the hospital for evaluation treatment of acute stroke, significant disability, pneumonia, pulmonary emboli. Total time spent today is 80 minutes, 45 minutes in coordination of care and discussing with patient, family and other providers management of stroke, pneumonia, PE
[2022-07-21] MEDS: predniSONE 20 MG TABLET 40 MG PO (20:09)
[2022-07-21] MEDS: IPRAT-ALBUT 0.5-2.5 MG/3 ML NEB 1 NEB IH (20:09)
[2022-07-21] MEDS: levoFLOXacin 500 MG TABLET PO (20:10)
[2022-07-21] MEDS: ENOXAPARIN 60 MG/0.6 ML INJ SUBCUT (20:10)
[2022-07-21] MEDS: ROSUVASTATIN CALCIUM 10 MG TABLET 20 MG PO (21:22)
[2022-07-22] VITALS (10 sets, daily range): BP systolic 102–135; BP diastolic 69–93; PULSE 88–100; RESP 18–100; TEMP 36.6–37.1; O2SAT 97–100; BMI 19.1
[2022-07-22 01:24] LABS: Appearance Urine Slightly Cloudy (Clear); Bilirubin Urine 1+ (Negative); Blood Urine Negative (Negative); Color Urine Yellow (Yellow); Glucose Urine Negative (Negative); Ketones Urine Negative (Negative); Leukocyte Esterase Urine Negative (Negative); Nitrite Urine Negative (Negative); Protein Urine 1+ (Negative)
[2022-07-22 01:34] LABS: Bacteria Urine Few; RBC Urine 0-2 (0-2); Squamous Epithelial Cell Urine Few (None-Few)
--- NOTE | 2022-07-22 06:25 | PC.NURSE ---
Shift note: The pt is very hard of hearing. He has been alert and oriented to self, place, time, and situations but occasional forgetful noted. No fever noted. The pt has been incontinent of bowel and bladder. Hemoccult stool test was tested positive. The pt has been having soft black stool several times this shift. 1L of oxygen via NC was given to keep Spo2 in the 90s. The pt denied chest pain, short of breath and other distress throughout the shift. Stage 1 pressure ulcer noted on the buttock, the pt has been turned and repositioned, Mepilex dressing applied to the site. Slight left arm and leg weakness noted. No facial dropping noted, The pt has been drinking water without any distress. No blurry vision noted. Denied headache. Airborne precaution in place
[2022-07-22 06:43] LABS: Hematocrit 23.3 % (37.0-53.0); Immature Granulocytes Pct Auto 0.4 %; Lymphocytes Percent Auto 3.4 % (20-44); Mean Corpuscular HGB Conc 33 gm/dL (32-36); Mean Corpuscular Hemoglobin 31 pg (26-34); Mean Corpuscular Volume 95 fL (80-100); Monocytes Percent Auto 1.3 % (0.0-11.0); Neutrophils Percent Auto 94.9 % (42.0-72.0); Platelet Count* 357 K/uL (140-440); RDW Coefficient of Variation % 15.1 % (11.5-15.5); Red Blood Count 2.46 m/uL (4.30-5.90); White Blood Count* 16.75 K/uL (4.50-11.00)
[2022-07-22 06:51] LABS: Hemoglobin* 7.6 gm/dL (13.5-17.5); Slide Review Reflex No
--- NOTE | 2022-07-22 06:52 | PC.NURSE ---
Critical LAB value: Hgb 7.6 this AM, was notified
[2022-07-22] MEDS: IPRAT-ALBUT 0.5-2.5 MG/3 ML NEB 1 NEB IH ×3 (06:58→18:46)
[2022-07-22 07:03] LABS: Chloride* 113 mmol/L (96-114); Potassium* 3.5 mmol/L (3.6-5.1); Sodium* 140 mmol/L (135-149)
[2022-07-22 07:06] LABS: Creatinine* 1.3 mg/dL (0.5-1.5); Est. Creatinine Clearance* 39.23; Estimated Glomerular Filt Rate 57 ml/min
[2022-07-22 07:07] LABS: Blood Urea Nitrogen* 32 mg/dL (7-30); Calcium* 7.8 mg/dL (8.4-10.6); Carbon Dioxide* 21 mmol/L (20-32); Glucose* 268 mg/dL (60-115)
[2022-07-22 07:20] LABS: Troponin I* 0.19 ng/mL (0.01-0.04)
[2022-07-22 07:23] LABS: C Reactive Protein* 20.1 mg/dL (0.5-1.0)
[2022-07-22 07:49] LABS: Immature Reticulocyte Fraction 23.9 % (2.3-13.4); Reticulocyte Hemoglobin Equivi 25.6 pg (29.0-35.0); Reticulocyte Percent 3.1 % (0.5-2.0); Reticulocytes Absolute 0.08 # (0.03-0.08)
[2022-07-22 08:45] LABS: Iron* 19 ug/dL (49-181)
[2022-07-22 08:54] LABS: Percent Iron Saturation 11 % (20-50); Total Iron Binding Capacity 172 ug/dL (261-462)
[2022-07-22] MEDS: APIXABAN 5 MG TABLET 10 MG PO ×2 (09:20→20:50)
[2022-07-22 09:41] LABS: Vitamin B12* > 1000 pg/mL (243-894)
--- NOTE | 2022-07-22 09:58 | P.IMPN_ITS ---
Progress Note: A&P Assessment and plan (1) Cerebellar stroke: Problem details: Acute, likely 3-day-old based on history from family. Will use anticoagulation rather than antiplatelet therapy due to PE. Statin and PT, OT Status: Acute (2) Leg weakness, bilateral: Problem details: Chronic. Therapy to assess. Status: Acute (3) Pulmonary emboli: Problem details: Anticoagulation Status: Acute (4) Anemia: Problem details: Chronic, monitor for bleeding with anticoagulation. Labs show iron deficiency but not microcytic anemia Status: Acute (5) Multiple lacunar infarcts: Problem details: Likely the cause of his chronic weakness and falls Status: Acute (6) Cervical spinal stenosis: Status: Acute (7) Frequent falls: Status: Acute (8) Pneumonia: Problem details: Atypical presentation. Suspect recurrent aspiration. No need for airborne precautions Status: Acute (9) Hypertension: Problem details: Now 3 days out will begin blood pressure treatment as need. Status: Acute (10) Incontinence of bowel: Status: Acute (11) Incontinence of urine: Status: Acute (12) Iron deficiency anemia: Problem details: Acute on chronic anemia with iron deficiency Status: Acute (13) Cognitive impairment: Status: Acute Plan 77-year-old male with multiple significant medical problems above. He is relatively physically disabled. Concern over cognitive status inability to manage his care. Significant cardia respiratory problems and symptoms. Continue in hospital for ongoing evaluation management. May need some additional rehab before returning to independent living. Time Spent With Patient Total time spent: Total time spent is 50 minutes, 30 minutes in coordination of care and discussing with other providers management of PE, and STEMI, stroke, pneumonia, anemia Subjective Date Seen: 07/22/22 Interval history: 77-year-old male seen in followup of hospital admission for stroke, pneumonia, pulmonary embolism, non STEMI, anemia. Patient reports no concerns today. He reports no breathing troubles, chest pain, fever. He is incontinent of bowel and bladder. Requiring assist of 2 to stand and walk. Patient has no recollection of having tuberculosis, living with or exposed to anybody with tuberculosis, significant international travel. No history of immunocompromise. Chart indicates history of asbestos exposure. Exam Narrative: Exam Narrative: He is alert and appears comfortable. Eyes normal. Oropharynx with dry mucous membranes. Edentulous.. No facial asymmetry. Respirations with bilateral crackles. Fair air exchange all lung carmen. No wheezing. Cardiovascular: S1, S2, regular rate and rhythm. Abdomen is soft without tenderness or mass. Extremities without edema. Diminished pedal pulses. Const: Vital Signs, click to edit/add: Vital Signs - 24 hr 07/21/22 11:32 07/21/22 11:45 07/21/22 11:57 Temperature 97.0 F L Pulse Rate 122 H 117 H Pulse Rate [Pulse Oximeter] Pulse Rate [Right Pulse Oximeter] 74 Respiratory Rate 18 Blood Pressure 107/74 Blood Pressure [Ri ght Arm] Blood Pressure [Ri ght Upper Arm] 108/61 Pulse Oximetry 88 92 97 Oxygen Delivery Me thod Room Air Oxygen Flow Rate 07/21/22 12:00 07/21/22 12:02 07/21/22 12:03 Temperature Pulse Rate 115 H 114 H 113 H Pulse Rate [Pulse Oximeter] Pulse Rate [Right Pulse Oximeter] Respiratory Rate Blood Pressure 123/73 Blood Pressure [Ri ght Arm] Blood Pressure [Ri ght Upper Arm] Pulse Oximetry 95 95 95 Oxygen Delivery Me thod Oxygen Flow Rate 07/21/22 12:15 07/21/22 12:30 07/21/22 12:31 Temperature Pulse Rate 116 H 114 H 111 H Pulse Rate [Pulse Oximeter] Pulse Rate [Right Pulse Oximeter] Respiratory Rate Blood Pressure 128/82 Blood Pressure [Ri ght Arm] Blood Pressure [Ri ght Upper Arm] Pulse Oximetry 95 97 97 Oxygen Delivery Me thod Oxygen Flow Rate 07/21/22 12:56 07/21/22 13:00 07/21/22 13:02 Temperature Pulse Rate 112 H 112 H 112 H Pulse Rate [Pulse Oximeter] Pulse Rate [Right Pulse Oximeter] Respiratory Rate Blood Pressure 124/83 Blood Pressure [Ri ght Arm] Blood Pressure [Ri ght Upper Arm] Pulse Oximetry 97 98 98 Oxygen Delivery Me thod Nasal Cannula Oxygen Flow Rate 2 07/21/22 13:15 07/21/22 13:30 07/21/22 13:32 Temperature Pulse Rate 112 H 109 H 109 H Pulse Rate [Pulse Oximeter] Pulse Rate [Right Pulse Oximeter] Respiratory Rate Blood Pressure 141/75 H Blood Pressure [Ri ght Arm] Blood Pressure [Ri ght Upper Arm] Pulse Oximetry 96 97 98 Oxygen Delivery Me thod Nasal Cannula Nasal Cannula Nasal Cannula Oxygen Flow Rate 2 2 2 07/21/22 13:45 07/21/22 14:35 07/21/22 12:35 Temperature Pulse Rate 105 H Pulse Rate [Pulse Oximeter] Pulse Rate [Right Pulse Oximeter] 105 H Respiratory Rate 26 H Blood Pressure Blood Pressure [Ri ght Arm] Blood Pressure [Ri ght Upper Arm] Pulse Oximetry 98 98 88 Oxygen Delivery Me thod Nasal Cannula Nasal Cannula Oxygen Flow Rate 2 2 07/21/22 14:00 07/21/22 14:02 07/21/22 14:15 Temperature Pulse Rate 105 H 104 H 104 H Pulse Rate [Pulse Oximeter] Pulse Rate [Right Pulse Oximeter] Respiratory Rate Blood Pressure 147/89 H Blood Pressure [Ri ght Arm] Blood Pressure [Ri ght Upper Arm] Pulse Oximetry 98 99 98 Oxygen Delivery Me thod Oxygen Flow Rate 07/21/22 14:30 07/21/22 14:32 07/21/22 14:45 Temperature Pulse Rate 104 H 104 H 103 H Pulse Rate [Pulse Oximeter] Pulse Rate [Right Pulse Oximeter] Respiratory Rate Blood Pressure 133/74 Blood Pressure [Ri ght Arm] Blood Pressure [Ri ght Upper Arm] Pulse Oximetry 98 98 98 Oxygen Delivery Me thod Oxygen Flow Rate 07/21/22 15:09 07/21/22 15:15 07/21/22 15:30 Temperature Pulse Rate 104 H 103 H 97 Pulse Rate [Pulse Oximeter] Pulse Rate [Right Pulse Oximeter] Respiratory Rate Blood Pressure Blood Pressure [Ri ght Arm] Blood Pressure [Ri ght Upper Arm] Pulse Oximetry 100 98 98 Oxygen Delivery Me thod Nasal Cannula Nasal Cannula Oxygen Flow Rate 2 2 07/21/22 15:32 07/21/22 15:45 07/21/22 16:00 Temperature Pulse Rate 97 100 105 H Pulse Rate [Pulse Oximeter] Pulse Rate [Right Pulse Oximeter] Respiratory Rate Blood Pressure 123/68 Blood Pressure [Ri ght Arm] Blood Pressure [Ri ght Upper Arm] Pulse Oximetry 98 98 95 Oxygen Delivery Me thod Nasal Cannula Nasal Cannula Nasal Cannula Oxygen Flow Rate 2 2 2 07/21/22 16:02 07/21/22 16:15 07/21/22 16:30 Temperature Pulse Rate 105 H 107 H 107 H Pulse Rate [Pulse Oximeter] Pulse Rate [Right Pulse Oximeter] Respiratory Rate Blood Pressure 118/78 Blood Pressure [Ri ght Arm] Blood Pressure [Ri ght Upper Arm] Pulse Oximetry 96 96 97 Oxygen Delivery Me thod Nasal Cannula Oxygen Flow Rate 2 07/21/22 16:33 07/21/22 16:45 07/21/22 17:00 Temperature Pulse Rate 105 H 103 H 100 Pulse Rate [Pulse Oximeter] Pulse Rate [Right Pulse Oximeter] Respiratory Rate Blood Pressure 134/74 Blood Pressure [Ri ght Arm] Blood Pressure [Ri ght Upper Arm] Pulse Oximetry 97 98 97 Oxygen Delivery Me thod Oxygen Flow Rate 07/21/22 17:01 07/21/22 20:17 07/21/22 21:12 Temperature 98.1 F Pulse Rate 100 Pulse Rate [Pulse Oximeter] 105 H Pulse Rate [Right Pulse Oximeter] Respiratory Rate 20 20 Blood Pressure 118/70 Blood Pressure [Ri ght Arm] 117/69 Blood Pressure [Ri ght Upper Arm] Pulse Oximetry 97 94 94 Oxygen Delivery Me thod Nasal Cannula Nasal Cannula Oxygen Flow Rate 2 2 07/21/22 21:27 07/21/22 22:17 07/21/22 23:47 Temperature 98.1 F 98.2 F Pulse Rate Pulse Rate [Pulse Oximeter] 105 H 99 Pulse Rate [Right Pulse Oximeter] 99 Respiratory Rate 20 20 20 Blood Pressure Blood Pressure [Ri ght Arm] 117/69 132/65 Blood Pressure [Ri ght Upper Arm] Pulse Oximetry 94 94 96 Oxygen Delivery Me thod Nasal Cannula Nasal Cannula Nasal Cannula Oxygen Flow Rate 2 2 1 07/21/22 23:45 07/21/22 23:45 07/22/22 02:45 Temperature Pulse Rate 100 Pulse Rate [Pulse Oximeter] 105 H Pulse Rate [Right Pulse Oximeter] 99 Respiratory Rate 20 20 Blood Pressure Blood Pressure [Ri ght Arm] Blood Pressure [Ri ght Upper Arm] Pulse Oximetry 96 Oxygen Delivery Me thod Nasal Cannula Oxygen Flow Rate 1 07/22/22 04:33 07/22/22 08:00 Temperature 98.8 F 98 F Pulse Rate Pulse Rate [Pulse Oximeter] 95 100 Pulse Rate [Right Pulse Oximeter] 99 Respiratory Rate 20 20 Blood Pressure Blood Pressure [Ri ght Arm] 127/86 115/71 Blood Pressure [Ri ght Upper Arm] Pulse Oximetry 97 99 Oxygen Delivery Me thod Nasal Cannula Room Air Oxygen Flow Rate 1 Documenting provider has reviewed patient's vital signs: yes Labs Labs: Laboratory Results - last 24 hr 07/21/22 07/21/22 07/21/22 11:55 13:15 13:15 WBC 20.70 H RBC 3.40 L Hgb 10.4 L Hct 32.0 L MCV 94 MCH 31 MCHC 33 RDW Coeff of Isabel 14.8 Plt Count 466 H Neut % (Auto) 92.5 H Lymph % (Auto) 4.0 L [place] % (Auto) 3.2 Eos % (Auto) 0.0 Baso % (Auto) 0.0 Neut # (Auto) 19.10 H Lymph # (Auto) 0.80 L [place] # (Auto) 0.70 Eos # (Auto) 0.00 Baso # (Auto) 0.00 Abs Immat Gran (auto) 0.10 Imm/Tot Granulo (auto) 0.3 Absolute Retic Percent Retic Immature Retic Fraction Retic Hgb Equivalent D-Dimer Quant (PE/DVT) VBG pH VBG pCO2 VBG pO2 VBG HCO3 Sodium 144 Potassium 4.4 Chloride 113 Carbon Dioxide 23 BUN 39 H Creatinine 1.5 Estimated Creat Clear 34.94 Estimated GFR 48 Glucose 217 H Venous Lactic Acid (Serial Order) Calcium 8.8 Magnesium Iron TIBC % Saturation Total Bilirubin Direct Bilirubin AST ALT Alkaline Phosphatase Total Creatine Kinase 94 Troponin I C-Reactive Protein 22.0 H NT-Pro-B Natriuret Pep Total Protein Albumin Vitamin B12 Urine Color Urine Appearance Urine pH Ur Specific [place] Urine Protein Urine Glucose (UA) Urine Ketones Urine Blood Urine Nitrite Urine Bilirubin Urine Urobilinogen Ur Leukocyte Esterase Urine RBC Urine WBC Ur Squamous Epith Cells Urine Bacteria Ethyl Alcohol SARS-CoV-2 (PCR) Negative SARS-CoV-2 HIV 1&2 Ab/P24 Ag 4thGn Influenza Type A (PCR) Negative PCR FLU A Influenza Type B (PCR) Negative PCR FLU B RSV (PCR) Negative PCR RSV 07/21/22 07/21/22 07/21/22 13:15 13:15 13:15 WBC RBC Hgb Hct MCV MCH MCHC RDW Coeff of Isabel Plt Count Neut % (Auto) Lymph % (Auto) [place] % (Auto) Eos % (Auto) Baso % (Auto) Neut # (Auto) Lymph # (Auto) [place] # (Auto) Eos # (Auto) Baso # (Auto) Abs Immat Gran (auto) Imm/Tot Granulo (auto) Absolute Retic Percent Retic Immature Retic Fraction Retic Hgb Equivalent D-Dimer Quant (PE/DVT) 8.41 H VBG pH VBG pCO2 VBG pO2 VBG HCO3 Sodium Potassium Chloride Carbon Dioxide BUN Creatinine Estimated Creat Clear Estimated GFR Glucose Venous Lactic Acid (Serial Order) Calcium Magnesium 2.6 Iron TIBC % Saturation Total Bilirubin 1.2 Direct Bilirubin 0.8 H AST 35 ALT 17 Alkaline Phosphatase 154 H Total Creatine Kinase Troponin I 0.13 H* C-Reactive Protein NT-Pro-B Natriuret Pep 9630 Total Protein 7.1 Albumin 3.3 Vitamin B12 Urine Color Urine Appearance Urine pH Ur Specific [place] Urine Protein Urine Glucose (UA) Urine Ketones Urine Blood Urine Nitrite Urine Bilirubin Urine Urobilinogen Ur Leukocyte Esterase Urine RBC Urine WBC Ur Squamous Epith Cells Urine Bacteria Ethyl Alcohol < 0.01 L SARS-CoV-2 (PCR) HIV 1&2 Ab/P24 Ag 4thGn Influenza Type A (PCR) Influenza Type B (PCR) RSV (PCR) 07/21/22 07/21/22 07/22/22 13:15 17:24 00:28 WBC RBC Hgb Hct MCV MCH MCHC RDW Coeff of Isabel Plt Count Neut % (Auto) Lymph % (Auto) [place] % (Auto) Eos % (Auto) Baso % (Auto) Neut # (Auto) Lymph # (Auto) [place] # (Auto) Eos # (Auto) Baso # (Auto) Abs Immat Gran (auto) Imm/Tot Granulo (auto) Absolute Retic Percent Retic Immature Retic Fraction Retic Hgb Equivalent D-Dimer Quant (PE/DVT) VBG pH 7.408 VBG pCO2 37 L VBG pO2 32.3 VBG HCO3 23 Sodium Potassium Chloride Carbon Dioxide BUN Creatinine Estimated Creat Clear Estimated GFR Glucose Venous Lactic Acid (Serial Order) Calcium Magnesium Iron TIBC % Saturation Total Bilirubin Direct Bilirubin AST ALT Alkaline Phosphatase Total Creatine Kinase Troponin I C-Reactive Protein NT-Pro-B Natriuret Pep Total Protein Albumin Vitamin B12 Urine Color Yellow Urine Appearance Slightly Cloudy A Urine pH 7.0 Ur Specific [place] 1.010 Urine Protein 1+ A Urine Glucose (UA) Negative Urine Ketones Negative Urine Blood Negative Urine Nitrite Negative Urine Bilirubin 1+ A Urine Urobilinogen 1.0 Ur Leukocyte Esterase Negative Urine RBC 0-2 Urine WBC 2-5 Ur Squamous Epith Cells Few Urine Bacteria Few A Ethyl Alcohol SARS-CoV-2 (PCR) HIV 1&2 Ab/P24 Ag 4thGn Negative Influenza Type A (PCR) Influenza Type B (PCR) RSV (PCR) 07/22/22 07/22/22 07/22/22 06:28 06:28 06:28 WBC 16.75 H RBC 2.46 L Hgb 7.6 L* Hct 23.3 L MCV 95 MCH 31 MCHC 33 RDW Coeff of Isabel 15.1 Plt Count 357 Neut % (Auto) 94.9 H Lymph % (Auto) 3.4 L [place] % (Auto) 1.3 Eos % (Auto) 0.0 Baso % (Auto) 0.0 Neut # (Auto) 15.90 H Lymph # (Auto) 0.60 L [place] # (Auto) 0.20 Eos # (Auto) 0.00 Baso # (Auto) 0.00 Abs Immat Gran (auto) 0.10 Imm/Tot Granulo (auto) 0.4 Absolute Retic 0.08 Percent Retic 3.1 H Immature Retic Fraction 23.9 H Retic Hgb Equivalent 25.6 L D-Dimer Quant (PE/DVT) VBG pH VBG pCO2 VBG pO2 VBG HCO3 Sodium 140 Potassium 3.5 L Chloride 113 Carbon Dioxide 21 BUN 32 H Creatinine 1.3 Estimated Creat Clear 39.23 Estimated GFR 57 Glucose 268 H Venous Lactic Acid (Serial Order) Calcium 7.8 L Magnesium Iron TIBC % Saturation Total Bilirubin Direct Bilirubin AST ALT Alkaline Phosphatase Total Creatine Kinase Troponin I 0.19 H* C-Reactive Protein 20.1 H NT-Pro-B Natriuret Pep Total Protein Albumin Vitamin B12 Urine Color Urine Appearance Urine pH Ur Specific [place] Urine Protein Urine Glucose (UA) Urine Ketones Urine Blood Urine Nitrite Urine Bilirubin Urine Urobilinogen Ur Leukocyte Esterase Urine RBC Urine WBC Ur Squamous Epith Cells Urine Bacteria Ethyl Alcohol SARS-CoV-2 (PCR) HIV 1&2 Ab/P24 Ag 4thGn Influenza Type A (PCR) Influenza Type B (PCR) RSV (PCR) 07/22/22 07/22/22 07/22/22 06:28 06:28 06:28 WBC RBC Hgb Hct MCV MCH MCHC RDW Coeff of Isabel Plt Count Neut % (Auto) Lymph % (Auto) [place] % (Auto) Eos % (Auto) Baso % (Auto) Neut # (Auto) Lymph # (Auto) [place] # (Auto) Eos # (Auto) Baso # (Auto) Abs Immat Gran (auto) Imm/Tot Granulo (auto) Absolute Retic Percent Retic Immature Retic Fraction Retic Hgb Equivalent D-Dimer Quant (PE/DVT) VBG pH VBG pCO2 VBG pO2 VBG HCO3 Sodium Potassium Chloride Carbon Dioxide BUN Creatinine Estimated Creat Clear Estimated GFR Glucose Venous Lactic Acid (Serial Order) Calcium Magnesium Iron Cancelled 19 L TIBC Cancelled 172 L % Saturation Cancelled 11 L Total Bilirubin Direct Bilirubin AST ALT Alkaline Phosphatase Total Creatine Kinase Troponin I C-Reactive Protein NT-Pro-B Natriuret Pep Total Protein Albumin Vitamin B12 Cancelled Urine Color Urine Appearance Urine pH Ur Specific [place] Urine Protein Urine Glucose (UA) Urine Ketones Urine Blood Urine Nitrite Urine Bilirubin Urine Urobilinogen Ur Leukocyte Esterase Urine RBC Urine WBC Ur Squamous Epith Cells Urine Bacteria Ethyl Alcohol SARS-CoV-2 (PCR) HIV 1&2 Ab/P24 Ag 4thGn Influenza Type A (PCR) Influenza Type B (PCR) RSV (PCR) 07/22/22 06:28 WBC RBC Hgb Hct MCV MCH MCHC RDW Coeff of Isabel Plt Count Neut % (Auto) Lymph % (Auto) [place] % (Auto) Eos % (Auto) Baso % (Auto) Neut # (Auto) Lymph # (Auto) [place] # (Auto) Eos # (Auto) Baso # (Auto) Abs Immat Gran (auto) Imm/Tot Granulo (auto) Absolute Retic Percent Retic Immature Retic Fraction Retic Hgb Equivalent D-Dimer Quant (PE/DVT) VBG pH VBG pCO2 VBG pO2 VBG HCO3 Sodium Potassium Chloride Carbon Dioxide BUN Creatinine Estimated Creat Clear Estimated GFR Glucose Venous Lactic Acid (Serial Order) Calcium Magnesium Iron TIBC % Saturation Total Bilirubin Direct Bilirubin AST ALT Alkaline Phosphatase Total Creatine Kinase Troponin I C-Reactive Protein NT-Pro-B Natriuret Pep Total Protein Albumin Vitamin B12 > 1000 H Urine Color Urine Appearance Urine pH Ur Specific [place] Urine Protein Urine Glucose (UA) Urine Ketones Urine Blood Urine Nitrite Urine Bilirubin Urine Urobilinogen Ur Leukocyte Esterase Urine RBC Urine WBC Ur Squamous Epith Cells Urine Bacteria Ethyl Alcohol SARS-CoV-2 (PCR) HIV 1&2 Ab/P24 Ag 4thGn Influenza Type A (PCR) Influenza Type B (PCR) RSV (PCR)
--- NOTE | 2022-07-22 14:18 | RESP.RT ---
Pt seen this AM. On RA, SPO2 98 % on RA, of note aware of his low hemoglobin this AM. He did desaturate with some activity, purse lip breaths to get saturation to come back up, in under a minute. Pts Chest CT noted. Pt may need consultation with Pulmonology, questioning possible need for a bronchoscopy. If there is a questions about hypoxia for him, recommend checking an ABG. Pt receiving bronchodilators. No need fo aerobika at this time.
[2022-07-22 15:08] LABS: Hemoglobin* 8.2 gm/dL (13.5-17.5)
[2022-07-22 15:46] LABS: Troponin I* 0.18 ng/mL (0.01-0.04)
--- NOTE | 2022-07-22 16:01 | PC.SOCIAL ---
Met with pt. and daughter Margaux @ [phone] to discuss discharge plans. Therapies and physician are recommending a rehab stay. Pt. is in agreement and prefers [facility] first then [facility]. They do not want [facility]. [facility] has a bed and is assessing. A message was left with [facility].
[2022-07-22] MEDS: levoFLOXacin 500 MG TABLET PO (18:36)
--- NOTE | 2022-07-22 19:21 | PC.NURSE ---
Nursing Care Hours: [id number] Pt this shift calm and cooperative. Loose stool x2 in brief, hayde cares done, barrier ointment applied. Stool dried and stuck to penis and groin as well as under finger nails. Shower given, fingernails scrubbed with soap, hayde area cleaned and dried. White spots on tongue and mottled bilat legs reported to Hospitalist. Stool positive for blood. Eating about 50% of meals. Stable on room air.
[2022-07-22] MEDS: ROSUVASTATIN CALCIUM 10 MG TABLET 20 MG PO (20:50)
[2022-07-23] VITALS (12 sets, daily range): BP systolic 107–134; BP diastolic 62–96; PULSE 89–106; RESP 18–22; TEMP 36.4–36.8; O2SAT 95–100
--- NOTE | 2022-07-23 05:11 | PC.NURSE ---
patient up with assist of 1 walker and gait belt, incontinent overnight of bladder several times. appears to have slept soundly overnight.
[2022-07-23] MEDS: IPRAT-ALBUT 0.5-2.5 MG/3 ML NEB 1 NEB IH ×3 (05:55→20:06)
[2022-07-23 06:13] LABS: Eosinophils Percent Auto 0.1 % (0.0-7.0); Hematocrit 21.6 % (37.0-53.0); Immature Granulocytes Pct Auto 0.3 %; Lymphocytes Percent Auto 7.4 % (20-44); Mean Corpuscular HGB Conc 32 gm/dL (32-36); Mean Corpuscular Hemoglobin 31 pg (26-34); Mean Corpuscular Volume 94 fL (80-100); Monocytes Percent Auto 3.3 % (0.0-11.0); Neutrophils Percent Auto 88.9 % (42.0-72.0); Platelet Count* 351 K/uL (140-440); RDW Coefficient of Variation % 14.9 % (11.5-15.5); Red Blood Count 2.29 m/uL (4.30-5.90); White Blood Count* 13.51 K/uL (4.50-11.00)
[2022-07-23 06:18] LABS: Slide Review Reflex No
[2022-07-23 06:23] LABS: Chloride* 109 mmol/L (96-114)
[2022-07-23 06:24] LABS: Potassium* 3.4 mmol/L (3.6-5.1); Sodium* 136 mmol/L (135-149)
[2022-07-23 06:27] LABS: Blood Urea Nitrogen* 28 mg/dL (7-30); Carbon Dioxide* 23 mmol/L (20-32); Creatinine* 1.2 mg/dL (0.5-1.5); Estimated Glomerular Filt Rate 63 ml/min; Glucose* 159 mg/dL (60-115)
[2022-07-23 06:30] LABS: C Reactive Protein* 7.2 mg/dL (0.5-1.0)
[2022-07-23 06:48] LABS: Troponin I* 0.16 ng/mL (0.01-0.04)
--- NOTE | 2022-07-23 07:35 | P.IMPN_ITS ---
Progress Note: A&P Assessment and plan (1) Cerebellar stroke: Problem details: - Acute, likely 3-day-old based on history from family. Will use anticoagulation rather than antiplatelet therapy due to PE. Statin and PT, OT Status: Acute (2) Leg weakness, bilateral: Problem details: - Chronic, appreciate input from PT and OT Status: Acute (3) Pulmonary emboli: Problem details: - Anticoagulation (monitor closely given anemia) Status: Acute (4) Anemia: Problem details: - Chronic, monitor for bleeding given anticoagulation. Labs show iron deficiency but not microcytic anemia. + guaiac, will discuss with General surgery - transfused 1 unit PRBCs for hemoglobin of 7 on 07/23/22 Status: Acute (5) Multiple lacunar infarcts: Problem details: - noted on admission MRI, Likely the cause of his chronic weakness and falls Status: Acute (6) Frequent falls: Status: Acute (7) Pneumonia: Problem details: - Atypical presentation. Suspect recurrent aspiration. TB testing pending - continue Levaquin Status: Acute (8) Hypertension: Problem details: - is now >72 hours from CVA, will treat HTN Status: Acute (9) Incontinence of bowel: Status: Acute (10) Incontinence of urine: Status: Acute (11) Cognitive impairment: Status: Acute Plan - per above - continue Eliquis for PE/CVA with close monitoring - will discuss with General Surgery (possible EGD w/o biopsies to ensure no bleeding lesion) Subjective Date Seen: 07/23/22 Interval history: Ryder is a 77-year-old male, admitted to the hospital on 07/21 for weakness in the setting of stroke, pneumonia, pulmonary embolism, elevated troponin, anemia. No acute events overnight. Hemoglobin this morning is 7.0; patient is amenable to blood transfusion given this finding. Ryder continues to require assistance from PT and OT. We are treating his pneumonia with Levaquin, TB testing pending. Exam Narrative: Exam Narrative: GEN: Alert HEENT: Normal external ears, EOMIs bilaterally, edentulous CV: RRR, No concerning murmurs, rubs, or gallops R: LCTA bilaterally without concerning wheezing, rales, or rhonchi Ext: wwp, no concerning edema Skin: No concerning skin lesions or rashes on exposed skin Neuro: Nonfocal Psych: Appropriate Const: Vital Signs, click to edit/add: Vital Signs - 24 hr 07/22/22 08:00 07/22/22 15:00 07/22/22 15:00 Temperature 98 F Pulse Rate Pulse Rate [Pulse Oximeter] 100 100 Pulse Rate [Right Pulse Oximeter] 99 Respiratory Rate 20 25 H 25 H Blood Pressure [Ri ght Arm] 115/71 Pulse Oximetry 99 99 Oxygen Delivery Me thod Room Air Room Air Oxygen Flow Rate 07/22/22 12:00 07/22/22 16:00 07/22/22 19:00 Temperature 98 F 98.1 F 98.1 F Pulse Rate Pulse Rate [Pulse Oximeter] 100 Pulse Rate [Right Pulse Oximeter] 88 97 Respiratory Rate 20 25 H 100 H Blood Pressure [Ri ght Arm] 123/70 102/77 135/93 H Pulse Oximetry 98 99 100 Oxygen Delivery Me thod Room Air Room Air Room Air Oxygen Flow Rate 07/22/22 23:00 07/22/22 23:00 07/22/22 23:00 Temperature 98.1 F Pulse Rate Pulse Rate [Pulse Oximeter] 92 92 Pulse Rate [Right Pulse Oximeter] 97 Respiratory Rate 18 18 18 Blood Pressure [Ri ght Arm] 118/69 Pulse Oximetry 100 100 Oxygen Delivery Me thod Room Air Room Air Oxygen Flow Rate 1 07/23/22 01:45 07/23/22 03:00 Temperature Pulse Rate 92 Pulse Rate [Pulse Oximeter] 94 Pulse Rate [Right Pulse Oximeter] Respiratory Rate 18 Blood Pressure [Ri ght Arm] Pulse Oximetry 100 Oxygen Delivery Me thod Room Air Oxygen Flow Rate Labs Labs: Laboratory Results - last 24 hr 07/22/22 07/22/22 07/22/22 06:28 06:28 06:28 WBC RBC Hgb Hct MCV MCH MCHC RDW Coeff of Isabel Plt Count Neut % (Auto) Lymph % (Auto) [place] % (Auto) Eos % (Auto) Baso % (Auto) Neut # (Auto) Lymph # (Auto) [place] # (Auto) Eos # (Auto) Baso # (Auto) Abs Immat Gran (auto) Imm/Tot Granulo (auto) Absolute Retic 0.08 Percent Retic 3.1 H Immature Retic Fraction 23.9 H Retic Hgb Equivalent 25.6 L Sodium Potassium Chloride Carbon Dioxide BUN Creatinine Estimated Creat Clear Estimated GFR Glucose Calcium Iron Cancelled TIBC Cancelled % Saturation Cancelled Troponin I C-Reactive Protein Vitamin B12 Cancelled Blood Type Antibody Screen 07/22/22 07/22/22 07/22/22 06:28 06:28 06:38 WBC RBC Hgb Hct MCV MCH MCHC RDW Coeff of Isabel Plt Count Neut % (Auto) Lymph % (Auto) [place] % (Auto) Eos % (Auto) Baso % (Auto) Neut # (Auto) Lymph # (Auto) [place] # (Auto) Eos # (Auto) Baso # (Auto) Abs Immat Gran (auto) Imm/Tot Granulo (auto) Absolute Retic Percent Retic Immature Retic Fraction Retic Hgb Equivalent Sodium Potassium Chloride Carbon Dioxide BUN Creatinine Estimated Creat Clear Estimated GFR Glucose Calcium Iron 19 L TIBC 172 L % Saturation 11 L Troponin I C-Reactive Protein Vitamin B12 > 1000 H Blood Type A Negative Antibody Screen NEGATIVE 07/22/22 07/22/22 07/23/22 14:47 14:47 05:43 WBC 13.51 H RBC 2.29 L Hgb 8.2 L 7.0 L* Hct 21.6 L MCV 94 MCH 31 MCHC 32 RDW Coeff of Isabel 14.9 Plt Count 351 Neut % (Auto) 88.9 H Lymph % (Auto) 7.4 L [place] % (Auto) 3.3 Eos % (Auto) 0.1 Baso % (Auto) 0.0 Neut # (Auto) 12.00 H Lymph # (Auto) 1.00 [place] # (Auto) 0.40 Eos # (Auto) 0.00 Baso # (Auto) 0.00 Abs Immat Gran (auto) 0.00 Imm/Tot Granulo (auto) 0.3 Absolute Retic Percent Retic Immature Retic Fraction Retic Hgb Equivalent Sodium Potassium Chloride Carbon Dioxide BUN Creatinine Estimated Creat Clear Estimated GFR Glucose Calcium Iron TIBC % Saturation Troponin I 0.18 H* C-Reactive Protein Vitamin B12 Blood Type Antibody Screen 07/23/22 05:43 WBC RBC Hgb Hct MCV MCH MCHC RDW Coeff of Isabel Plt Count Neut % (Auto) Lymph % (Auto) [place] % (Auto) Eos % (Auto) Baso % (Auto) Neut # (Auto) Lymph # (Auto) [place] # (Auto) Eos # (Auto) Baso # (Auto) Abs Immat Gran (auto) Imm/Tot Granulo (auto) Absolute Retic Percent Retic Immature Retic Fraction Retic Hgb Equivalent Sodium 136 Potassium 3.4 L Chloride 109 Carbon Dioxide 23 BUN 28 Creatinine 1.2 Estimated Creat Clear 42.00 Estimated GFR 63 Glucose 159 H Calcium 8.0 L Iron TIBC % Saturation Troponin I 0.16 H* C-Reactive Protein 7.2 H Vitamin B12 Blood Type Antibody Screen INDICATION: Slurred speech, left facial droop, left leg weakness TECHNIQUE: Noncontrast Sagittal T1, Axial FSE T2, Flair, DWI images submitted. COMPARISON: None. FINDINGS: The scalp and calvarium are normal. The superior sagittal sinus demonstrates normal venous flow. The corpus callosum is normal in shape and signal intensity. The posterior fossa is unremarkable. The pituitary and sella are normal. The brainstem and craniocervical junction are unremarkable. The upper cervical spinal cord and spine are normal. 9 millimeter area within the right cerebellum displaying restricted diffusion with decreased associated ADC signal intensity. Associated increased T2 FLAIR signal intensities. Multifocal old bilateral basal ganglia and centrum semiovale and garcia radiata. The susceptibility weighted sequences reveal no evidence of acute or chronic hemorrhage. The ventricles are normal in size and position without evidence of hydrocephalus.? There is mild, age-appropriate generalized atrophy. The axial FLAIR images show hyperintensities in the deep white matter, a nonspecific finding, however most commonly seen in the setting of chronic small vessel ischemic changes. Susceptibility artifacts degrades evaluation of the sinuses. Partial opacification of the mastoid air cells bilaterally. Normal flow voids are demonstrated in the carotid arteries and basilar artery. IMPRESSION: 1. Acute right cerebellar lacunar infarct. 2. Additional bilateral multifocal lacunar infarcts. Dictated by Vinicius Rob MD @ 07/21/2022 7:32:50 PM
[2022-07-23] MEDS: FERROUS SULFATE 325 MG TABLET PO (08:26)
[2022-07-23] MEDS: PANTOPRAZOLE SODIUM 40 MG INJ IVP (14:22)
--- NOTE | 2022-07-23 14:36 | PC.NURSE ---
incontinent x2 today. brief changed last at 1400. Late lunch ordered. OT in room at this time completing Mocha. PT had pt up ambulating in room. blood transfusion completed. Pt tachy prior to transfusion but now running 80's. N2N given to care center assessing pt for placement, they verbalized they would call back if patient able to be accepted.
--- NOTE | 2022-07-23 15:32 | PC.SOCIAL ---
Updated pt.'s daughter Margaux at [phone] that the [facility] looks like they will have a bed for Thursday but they are looking at insurance. Per request of [facility] staff updated Margaux that pt. cannot smoke or drink at [facility]. Since pt. is not vaccinated for COVID he will possibly need to isolate in his room but can have visitors, [facility] is checking the latest update on this. Margaux was in agreement with this and pleased with this plan and wants an update if accepted.
[2022-07-23] MEDS: levoFLOXacin 500 MG TABLET PO (18:51)
[2022-07-23] MEDS: ROSUVASTATIN CALCIUM 10 MG TABLET 20 MG PO ×2 (20:05→20:06)
[2022-07-23] MEDS: MELATONIN 3 MG TABLET PO (20:06)
[2022-07-23] MEDS: APIXABAN 5 MG TABLET 10 MG PO (20:06)
[2022-07-24] VITALS (8 sets, daily range): BP systolic 116–140; BP diastolic 68–94; PULSE 76–95; RESP 18–20; TEMP 36.6; O2SAT 97–100
[2022-07-24] MEDS: IPRAT-ALBUT 0.5-2.5 MG/3 ML NEB 1 NEB IH ×3 (03:20→20:14)
--- NOTE | 2022-07-24 05:18 | PC.NURSE ---
smiley appears to have slept most of the night, changed in bed a few times due to urine incontinence. no pain, afebrile.
[2022-07-24 06:28] LABS: Ionized Calcium* 1.18 mmol/L (1.11-1.30)
[2022-07-24 06:33] LABS: Eosinophils Absolute Auto 0.05 K/uL (0.00-0.50); Eosinophils Percent Auto 0.5 % (0.0-7.0); Hematocrit 26.9 % (37.0-53.0); Hemoglobin* 8.9 gm/dL (13.5-17.5); Immature Granulocytes Abs Auto 0.05 K/uL (0.00-0.30); Immature Granulocytes Pct Auto 0.5 %; Lymphocytes Percent Auto 9.3 % (20-44); Mean Corpuscular HGB Conc 33 gm/dL (32-36); Mean Corpuscular Hemoglobin 31 pg (26-34); Mean Corpuscular Volume 93 fL (80-100); Monocytes Percent Auto 4.2 % (0.0-11.0); Neutrophils Percent Auto 85.5 % (42.0-72.0); Platelet Count* 348 K/uL (140-440); RDW Coefficient of Variation % 15.3 % (11.5-15.5); Red Blood Count 2.88 m/uL (4.30-5.90); White Blood Count* 10.03 K/uL (4.50-11.00)
[2022-07-24] MEDS: ACETAMINOPHEN 325 MG TABLET 650 MG PO ×2 (06:33→16:40)
[2022-07-24 06:34] LABS: Slide Review Reflex No
[2022-07-24 06:46] LABS: Chloride* 111 mmol/L (96-114); Potassium* 3.3 mmol/L (3.6-5.1); Sodium* 138 mmol/L (135-149)
[2022-07-24 06:49] LABS: Creatinine* 1.1 mg/dL (0.5-1.5); Est. Creatinine Clearance* 45.27; Estimated Glomerular Filt Rate 70 ml/min
[2022-07-24 06:50] LABS: Blood Urea Nitrogen* 20 mg/dL (7-30); Calcium* 8.4 mg/dL (8.4-10.6); Carbon Dioxide* 23 mmol/L (20-32); Glucose* 167 mg/dL (60-115)
[2022-07-24 06:53] LABS: C Reactive Protein* 5.5 mg/dL (0.5-1.0)
--- NOTE | 2022-07-24 10:38 | PM.IMPN1 ---
Progress Note: A&P Assessment and plan (1) Cerebellar stroke: Problem details: - right cerebellar lacunar - likely acute, based on history from family. Will use anticoagulation rather than antiplatelet therapy due to PE. Statin and PT, OT Status: Acute (2) Pulmonary emboli: Problem details: - diagnosed on admission CT 07/21 - Eliquis initiated on admission Status: Acute (3) Leg weakness, bilateral: Problem details: - acute on chronic, appreciate input from PT and OT Status: Acute (4) Anemia: Problem details: - labs c/w iron deficiency but no microcytosis. + guaiac - EGD performed with General Surgery 07/24, no evidence of acute bleeding - transfused 1 unit PRBCs for hemoglobin of 7 on 07/23/22 - Outpatient colonoscopy Status: Acute (5) Multiple lacunar infarcts: Problem details: - noted on admission MRI, Likely the cause of his chronic weakness and falls Status: Acute (6) Frequent falls: Status: Acute (7) Pneumonia: Problem details: - Atypical presentation. Suspect recurrent aspiration. TB testing negative - continue Levaquin Status: Acute (8) Hypertension: Problem details: - elevated on admission, likely 2/2 CVA - not requiring any antihypertensives at this time Status: Acute (9) Incontinence of urine: Problem details: - new problem, in addition to bowel incontinence - no acute findings on lumbar MRI Status: Acute (10) Incontinence of bowel: Status: Acute (11) Cognitive impairment: Problem details: - this, in addition to weakness and frequent falls, make patient appropriate candidate for TCU Status: Acute (12) Cervical spinal stenosis: Problem details: - noted on C-spine MRI on admission Status: Acute Plan - continue antibiotics - Eliquis for anticoagulation - daughter Jannette updated by phone, questions answered - likely d/c to SNF tomorrow Subjective Date Seen: 07/24/22 Interval history: Ryder is a 77-year-old male who was admitted to the hospital 07/21 for weakness and incontinence in the setting of new CVA, pneumonia, pulmonary embolism, elevated troponin, anemia. No acute events overnight. Tolerated transfusion well on 07/23. EGD this morning revealed no evidence of acute bleeding; however, there was a stomach bezoar noted so Dr. Rivera was unable to evaluate this area. Working with PT and OT for weakness. Exam Narrative: Exam Narrative: GEN: Alert and oriented, laying comfortably in bed HEENT: Normal external ears, EOMIs bilaterally, no scleral icterus CV: RRR, No concerning murmurs, rubs, or gallops R: Air movement adequate, no wheezing, mild rhonchi bilateral bases Ext: wwp, no concerning edema Skin: No concerning skin lesions or rashes on exposed skin Neuro: No focal deficits Psych: Appropriate for chronic conditions Const: Vital Signs, click to edit/add: Vital Signs - 24 hr 07/23/22 12:33 07/23/22 11:00 07/23/22 13:03 Temperature 98.1 F 98.1 F 98.0 F Pulse Rate 89 95 Pulse Rate [Right Pulse Oximeter] 89 Respiratory Rate 20 20 20 Blood Pressure 129/69 120/96 H Blood Pressure [Ri ght Arm] 129/69 Pulse Oximetry 100 100 97 Oxygen Delivery Me thod Room Air Oxygen Flow Rate 0 07/23/22 15:00 07/23/22 15:00 07/23/22 15:00 Temperature 98.2 F Pulse Rate Pulse Rate [Right Pulse Oximeter] 91 91 Respiratory Rate 20 20 20 Blood Pressure Blood Pressure [Ri ght Arm] 132/76 Pulse Oximetry 95 99 Oxygen Delivery Me thod Room Air Room Air Oxygen Flow Rate 0 07/23/22 19:00 07/23/22 23:00 07/23/22 23:00 Temperature 97.8 F 98 F Pulse Rate Pulse Rate [Right Pulse Oximeter] 89 92 92 Respiratory Rate 20 18 18 Blood Pressure Blood Pressure [Ri ght Arm] 134/71 122/63 Pulse Oximetry 100 98 Oxygen Delivery Me thod Room Air Room Air Oxygen Flow Rate 0 07/23/22 23:00 07/24/22 03:00 07/24/22 02:00 Temperature 98 F Pulse Rate 89 Pulse Rate [Right Pulse Oximeter] 89 Respiratory Rate 18 18 Blood Pressure Blood Pressure [Ri ght Arm] 116/68 Pulse Oximetry 98 98 Oxygen Delivery Me thod Room Air Room Air Oxygen Flow Rate 0 0 07/24/22 07:00 07/24/22 07:00 Temperature 97.9 F Pulse Rate Pulse Rate [Right Pulse Oximeter] 87 Respiratory Rate 20 20 Blood Pressure Blood Pressure [Ri ght Arm] 129/79 Pulse Oximetry 97 97 Oxygen Delivery Me thod Room Air Room Air Oxygen Flow Rate 0 Labs Labs: Laboratory Results - last 24 hr 07/21/22 07/22/22 07/23/22 17:24 06:38 15:13 WBC RBC Hgb 10.0 L Hct MCV MCH MCHC RDW Coeff of Isabel Plt Count Neut % (Auto) Lymph % (Auto) [place] % (Auto) Eos % (Auto) Baso % (Auto) Neut # (Auto) Lymph # (Auto) [place] # (Auto) Eos # (Auto) Baso # (Auto) Abs Immat Gran (auto) Imm/Tot Granulo (auto) Sodium Potassium Chloride Carbon Dioxide BUN Creatinine Estimated Creat Clear Estimated GFR Glucose Calcium Ionized Calcium [place] C-Reactive Protein TB Test (QFT) Gold Plus Negative Crossmatch (AHG) See Detail 07/24/22 07/24/22 07/24/22 06:20 06:20 06:20 WBC 10.03 RBC 2.88 L Hgb 8.9 L Hct 26.9 L MCV 93 MCH 31 MCHC 33 RDW Coeff of Isabel 15.3 Plt Count 348 Neut % (Auto) 85.5 H Lymph % (Auto) 9.3 L [place] % (Auto) 4.2 Eos % (Auto) 0.5 Baso % (Auto) 0.0 Neut # (Auto) 8.60 H Lymph # (Auto) 0.90 [place] # (Auto) 0.40 Eos # (Auto) 0.05 Baso # (Auto) 0.00 Abs Immat Gran (auto) 0.05 Imm/Tot Granulo (auto) 0.5 Sodium 138 Potassium 3.3 L Chloride 111 Carbon Dioxide 23 BUN 20 Creatinine 1.1 Estimated Creat Clear 45.27 Estimated GFR 70 Glucose 167 H Calcium 8.4 Ionized Calcium [place] 1.18 C-Reactive Protein 5.5 H TB Test (QFT) Gold Plus Crossmatch (AHG)
--- NOTE | 2022-07-24 12:44 | PC.SOCIAL ---
Discharge plan: Received call back from Julita at [facility] stating they are no longer contracted with [facility] and since pt's healthcare insurance is changing from Medicare to Medicare Advantage [facility] in the next few days, they will not accept this pt. Called dtr and faxed her the list of contracted usp facilities. Dtr requested social sciences professor call [facility]. Called and they do not have any beds available until late next week. Informed dtr of this and she states she will discuss with her parents and get back to me. She states she is not sure if they will be willing to go out further from [place] than what has already been tried. tree worker to follow up as needed.
--- NOTE | 2022-07-24 13:00 | PC.NURSE ---
End of Shift Note: Patient has been NPO for most of this shift as he was waiting to have an EGD done. Have been holding on to his am medications awaiting his return and then will receive them. One is Jacqueline. Offers no complaints when i have been in to see him. Vitals are stable awaiting his return from the procedure.
--- NOTE | 2022-07-24 13:28 | PC.SOCIAL ---
Discharge plan: Dtr states she is concerned about pt needing to go too far from [place] to find an insurance contracted facility and asked social worker aide to send information to [facility] for [id number] placement where pt would need to pay privately for a percentage of his stay. Dtr is also still requesting social worker aide check on [facility] for availability. Called [facility] and they have no availability for admissions. Dtr will visit pt at 3:00 today to discuss placement options with him them. bench worker binding to follow up as needed.
[2022-07-24 13:31] LABS: Immature Reticulocyte Fraction 31.5 % (2.3-13.4); Reticulocyte Percent 2.6 % (0.5-2.0); Reticulocytes Absolute 0.07 # (0.03-0.08)
--- NOTE | 2022-07-24 13:38 | W.ANESCHARGE ---
Anesthesia Charges Start Date/Time Anesthesia Start Date: 07/24/22 Anesthesia Start Time: 13:15 Stop Date/Time Anesthesia Stop Date: 07/24/22 Anesthesia Stop Time: 13:35 Summary Emergency: No Extremes of Age: Over 71-CPT [id number]
--- NOTE | 2022-07-24 14:05 | W.ANESCHARGE ---
Anesthesia Charges Start Date/Time Anesthesia Start Date: 07/24/22 Anesthesia Start Time: 13:15 Stop Date/Time Anesthesia Stop Date: 07/24/22 Anesthesia Stop Time: 13:35 Summary Emergency: No Extremes of Age: Over 71-CPT [id number]
[2022-07-24] MEDS: APIXABAN 5 MG TABLET 10 MG PO ×2 (14:16→20:14)
[2022-07-24] MEDS: FERROUS SULFATE 325 MG TABLET PO (14:17)
--- NOTE | 2022-07-24 14:29 | PC.SOCIAL ---
Discharge Planning: Received call from Ambreen at [facility], stating they can accept pt until his Medicare insurance until it changes to [facility] Medicare Advantage plan. Then pt will pay privately for the out of pocket costs. They have a private room available tomorrow and can accept pt for admit tomorrow. Called lv [facility]hat[facility], who is pleased with this plan. Dtr will call [facility] and discuss the details of this plan to confirm they are in agreement. Called [facility] and left message stating the family is no longer interested in placement at their facility. transfer worker to follow up as needed.
[2022-07-24] MEDS: levoFLOXacin 500 MG TABLET PO (18:00)
--- NOTE | 2022-07-24 19:05 | PC.NURSE ---
end of shift [id number] pt. c/o pain in ankle, PRN tylenol administered w/relief. Bilateral calf SCD's applied and RN encouraged pt. to do ankle pumps. Pt. tolerated dinner well, denies any N/V/SOB. VS WNL. Family at bedside most of this shift.
[2022-07-24] MEDS: ROSUVASTATIN CALCIUM 10 MG TABLET 20 MG PO (20:13)
[2022-07-24] MEDS: MELATONIN 3 MG TABLET PO (20:14)
[2022-07-25] VITALS: BP 110/76; PULSE 90; RESP 18; TEMP 36.9; O2SAT 98
[2022-07-25 01:22] VITALS: PULSE 96
[2022-07-25 04:00] VITALS: BP 136/82; PULSE 95; RESP 20; TEMP 36.8; O2SAT 97
--- NOTE | 2022-07-25 06:40 | PC.NURSE ---
End of shift status [id number] Pt alert and oriented. Denies pain. VSS on room air. Telemetry monitoring, NSR. Receiving scheduled duonebs. PRN melatonin given at bedtime. Up with assist of 1 and walker/belt. Pt only stood at bedside, legs are weak. Pt has been incontinent of bladder. Repositioning as tolerated with assist of 1. Intermittent resting between cares.
[2022-07-25 06:56] LABS: Basophils Absolute Auto 0.01 K/uL (0.00-0.30); Basophils Percent Auto 0.1 % (0.0-3.0); Eosinophils Absolute Auto 0.07 K/uL (0.00-0.50); Eosinophils Percent Auto 0.7 % (0.0-7.0); Hematocrit 28.1 % (37.0-53.0); Hemoglobin* 9.2 gm/dL (13.5-17.5); Immature Granulocytes Abs Auto 0.04 K/uL (0.00-0.30); Immature Granulocytes Pct Auto 0.4 %; Lymphocytes Percent Auto 10.7 % (20-44); Mean Corpuscular HGB Conc 33 gm/dL (32-36); Mean Corpuscular Hemoglobin 31 pg (26-34); Mean Corpuscular Volume 95 fL (80-100); Monocytes Percent Auto 4.6 % (0.0-11.0); Neutrophils Percent Auto 83.5 % (42.0-72.0); Platelet Count* 379 K/uL (140-440); RDW Coefficient of Variation % 14.9 % (11.5-15.5); Red Blood Count 2.97 m/uL (4.30-5.90); White Blood Count* 9.89 K/uL (4.50-11.00)
[2022-07-25 07:00] VITALS: PULSE 83; RESP 18; O2SAT 99
[2022-07-25 07:01] LABS: Slide Review Reflex No
[2022-07-25 07:08] LABS: Chloride* 111 mmol/L (96-114); Potassium* 3.5 mmol/L (3.6-5.1); Sodium* 139 mmol/L (135-149)
[2022-07-25 07:10] LABS: Creatinine* 1.1 mg/dL (0.5-1.5); Est. Creatinine Clearance* 45.63; Estimated Glomerular Filt Rate 70 ml/min
[2022-07-25 07:11] LABS: Blood Urea Nitrogen* 16 mg/dL (7-30); Calcium* 8.6 mg/dL (8.4-10.6); Carbon Dioxide* 25 mmol/L (20-32); Glucose* 171 mg/dL (60-115)
[2022-07-25] MEDS: METOPROLOL SUCCINATE (XL) 25 MG TAB PO (07:37)
[2022-07-25] MEDS: ALBUTEROL SULFATE 2.5 MG/3 ML VIAL.NEB NEB (07:37)
[2022-07-25] MEDS: FERROUS SULFATE 325 MG TABLET PO (07:37)
[2022-07-25 07:45] VITALS: BP 122/69; PULSE 83; RESP 18; TEMP 36.8; O2SAT 99
[2022-07-25] MEDS: IPRAT-ALBUT 0.5-2.5 MG/3 ML NEB 1 NEB IH (08:00)
[2022-07-25] MEDS: APIXABAN 5 MG TABLET 10 MG PO (09:10)
--- NOTE | 2022-07-25 09:56 | P.DS_ITS ---
DS: Providers Provider Date Seen: 07/25/22 Date of admission: 07/21/22 19:22 Primary care physician: Not a Local Provider Admitting Clinician: Romeo Godoy MD Consults: SW, PT, OT Attending Physician on discharge: Heather Gale MD Date of Discharge: 07/25/22 DS: Diagnosis Discharge Diagnosis (1) Cerebellar stroke: Status: Acute Problem details: - right cerebellar lacunar - likely acute, based on history from family. Will use anticoagulation rather than antiplatelet therapy due to PE, statin initiated as well - followed by PT and OT during stay, TCU recommended (2) Pulmonary emboli: Status: Acute Problem details: - diagnosed on admission CT 07/21 - Eliquis initiated on admission, will continue upon discharge as no acute bleeding noted on EGD (3) NSTEMI (non-ST elevated myocardial infarction): Status: Acute Problem details: - troponin peaked at 0.19, patient denied CP throughout stay - TTE results from 07/22 exhibit LVEF of 55-60% with basal inferior inferolateral hypokinesis, mild MR and mild MS - given these findings, low dose Metoprolol initiated during stay with no untoward effects - needs outpatient f/u with Cardiology after Rehab stay (4) Anemia: Status: Acute Problem details: - labs c/w iron deficiency but no microcytosis. + guaiac - EGD performed with General Surgery 07/24, no evidence of acute bleeding - transfused 1U PRBCs for hemoglobin of 7 on 07/23/22, discharge hemoglobin 9.2 - Outpatient colonoscopy after TCU stay - monitor outpatient hemoglobin given need for anticoagulation given acute PE (5) Pneumonia: Status: Acute Problem details: - Atypical presentation. Suspect recurrent aspiration as source given history; however, patient seen by Speech Therapy 07/22, no aspiration noted during eval - TB testing negative - afebrile without need for supplemental oxygen - treated with Levaquin, will discharge on this to complete 7 day course (6) Incontinence of urine: Status: Acute Problem details: - new problem, in addition to bowel incontinence - no acute findings on lumbar MRI - consider outpatient pelvic PT (7) Cervical spinal stenosis: Status: Acute Problem details: - noted on C-spine MRI on admission (8) Hypertension: Status: Acute Problem details: - elevated on admission, likely 2/2 CVA - metoprolol initiated for NSTEMI on hospital day 5 (9) Multiple lacunar infarcts: Status: Acute Problem details: - noted on admission MRI, Likely the cause of his chronic weakness and falls (10) Cognitive impairment: Status: Acute DS: Summary Hospital Course Hospital Course: Ryder is a very pleasant 77-year-old male who presented to the emergency room with his daughter on 07/21 at the behest of his neurologist (Dr. Beatty at [facility] in [place]) Force alert speech, in addition to acute on chronic lower extremity weakness, and fairly new urinary and bowel incontinence. In the emergency room, patient was subsequently diagnosed with a cerebellar CVA, PE, atypical pneumonia, and elevated troponin. He was admitted to the hospital, placed on a statin and Eliquis. Troponins were followed and peaked at 0.19; TTE findings noted above. Metoprolol initiated. Patient did not have chest pain during stay, weaned off low dose supplemental oxygen on hospital day 2. He was treated with Levaquin for pneumonia and tolerated this well; his QuantiFERON gold was negative and there was no concern for aspiration by speech therapy. Hospital course complicated by acute on chronic anemia ( normocytic, presumably iron deficient based on labs), hemoglobin rolando of 7.0, requiring 1 unit of PRBCs. + Guaiac. Given concern for bleeding, EGD performed to rule out acute upper GI bleed. no acute bleeding noted; however, patient did have a bezoar in his stomach, and recommendation is to repeat EGD in 4-6 weeks for re-evaluation. Patient will also require an outpatient colonoscopy, and he will be discharged on iron supplementation. Given patient's weakness and incontinence, MRI of lumbar spine performed without acute findings. He was seen by PT and OT, who recommended TCU placement upon discharge. Patient was medically cleared and appropriate for discharge to TCU on 07/25/2022. Follow-up recommendations for PCP: - Follow hemoglobin. Repeat EGD in 4-6 weeks, outpatient colonoscopy to evaluate anemia - Cardiology referral for NSTEMI, hypokinesis on TTE - Neurology follow-up for recent CVA Status at Discharge Functional status at discharge: uses cane/walker Overall status at discharge: patient is progressing back to baseline Time Spent with Patient Time attestation: Total time spent providing and/or coordinating discharge services: Time spent: Greater than 30 minutes Specific discharge activities: Discharge med rec, documentation, family updates, care coordination Exam Narrative: Exam Narrative: GEN: Alert and appropriate, sitting comfortably in bed and having chocolate cake for breakfast when I see him this morning HEENT: Normal external ears, EOMIs bilaterally, edentulous, no scleral icterus CV: RRR, No concerning murmurs, rubs, or gallops R: LCTA bilaterally without concerning wheezing, rales, or rhonchi, air movement adequate, no tachypnea Ext: wwp, no concerning edema Skin: No concerning skin lesions or rashes on exposed skin Neuro: No focal deficits while sitting in bed, no resting tremor, gait not observed Psych: Appropriate Const: Vital Signs, click to edit/add: Vital Signs - 24 hr 07/24/22 11:00 07/24/22 14:39 07/24/22 15:00 Temperature 97.9 F Pulse Rate 89 Pulse Rate [Right Pulse Oximeter] 87 76 Respiratory Rate 18 18 Blood Pressure [Ri ght Arm] 140/80 H Pulse Oximetry 100 Oxygen Delivery Me thod Room Air Oxygen Flow Rate 07/24/22 15:00 07/24/22 15:00 07/24/22 20:12 Temperature 97.8 F 98 F Pulse Rate Pulse Rate [Right Pulse Oximeter] 76 95 Respiratory Rate 18 18 20 Blood Pressure [Ri ght Arm] 123/94 H 140/82 H Pulse Oximetry 98 98 98 Oxygen Delivery Me thod Room Air Room Air Room Air Oxygen Flow Rate 0 0 0 07/25/22 00:00 07/24/22 23:00 07/24/22 23:00 Temperature 98.5 F Pulse Rate Pulse Rate [Right Pulse Oximeter] 90 90 Respiratory Rate 18 18 Blood Pressure [Ri ght Arm] 110/76 Pulse Oximetry 98 98 Oxygen Delivery Me thod Room Air Room Air Oxygen Flow Rate 0 0 07/25/22 01:22 07/25/22 04:00 07/25/22 07:00 Temperature 98.3 F Pulse Rate 96 Pulse Rate [Right Pulse Oximeter] 95 83 Respiratory Rate 20 18 Blood Pressure [Ri ght Arm] 136/82 Pulse Oximetry 97 Oxygen Delivery Me thod Room Air Oxygen Flow Rate 07/25/22 07:00 07/25/22 07:45 Temperature 98.3 F Pulse Rate Pulse Rate [Right Pulse Oximeter] 83 Respiratory Rate 18 18 Blood Pressure [Ri ght Arm] 122/69 Pulse Oximetry 99 99 Oxygen Delivery Me thod Room Air Room Air Oxygen Flow Rate 0 0 DS: Data Data Completed and Pending Labs on day of discharge: Labs from last 24 hours 07/25/22 07/25/22 07/24/22 06:38 06:38 06:20 WBC 9.89 RBC 2.97 L Hgb 9.2 L Hct 28.1 L MCV 95 MCH 31 MCHC 33 RDW Coeff of Isabel 14.9 Plt Count 379 Neut % (Auto) 83.5 H Lymph % (Auto) 10.7 L [place] % (Auto) 4.6 Eos % (Auto) 0.7 Baso % (Auto) 0.1 Neut # (Auto) 8.30 H Lymph # (Auto) 1.10 [place] # (Auto) 0.50 Eos # (Auto) 0.07 Baso # (Auto) 0.01 Peripher Smr Path Cons Absolute Retic 0.07 Percent Retic 2.6 H Immature Retic Fraction 31.5 H Retic Hgb Equivalent 27.0 L Sodium 139 Potassium 3.5 L Chloride 111 Carbon Dioxide 25 BUN 16 Creatinine 1.1 Estimated Creat Clear 45.63 Estimated GFR 70 Glucose 171 H Calcium 8.6 07/24/22 06:20 WBC RBC Hgb Hct MCV MCH MCHC RDW Coeff of Isabel Plt Count Neut % (Auto) Lymph % (Auto) [place] % (Auto) Eos % (Auto) Baso % (Auto) Neut # (Auto) Lymph # (Auto) [place] # (Auto) Eos # (Auto) Baso # (Auto) Peripher Smr Path Cons Pending Absolute Retic Percent Retic Immature Retic Fraction Retic Hgb Equivalent Sodium Potassium Chloride Carbon Dioxide BUN Creatinine Estimated Creat Clear Estimated GFR Glucose Calcium Preliminary micro results at discharge 07/22/22 00:28 Urine Culture - Preliminary Urine,Clean Catch Gram negative donna 07/21/22 13:15 Blood Culture - Preliminary Blood NO GROWTH AFTER 72 HOURS 07/21/22 13:00 Blood Culture - Preliminary Blood NO GROWTH AFTER 72 HOURS Discharge Plan Discharge Disposition: er [facility] Date of Admission: 07/21/22 19:22 Attending Provider on Discharge: Heather Gale Primary Care Provider: Provider,Not a Local Condition: Stable Anticipated Discharge Date/Time: 07/25/22 10:00 Discharge Medications: New ferrous sulfate 325 mg (65 mg iron) Tablet 325 mg PO DAILYWM Qty: 30 0RF metoprolol succinate 25 mg Tablet Extended Release 24 Hr 25 mg PO DAILY Qty: 30 0RF levofloxacin 500 mg Tablet 500 mg PO Q24H 2 Days Qty: 2 0RF Rx Instructions: 2 more days to complete 7 day course rosuvastatin 10 mg Tablet 20 mg PO HS Qty: 60 0RF Eliquis 5 mg Tablet 5 mg PO BID Qty: 60 1RF Continued acetaminophen [Tylenol Extra Strength] 500 mg tablet 1,000 mg PO Q6H PRN Men's Daily Formula 400-20-300 mcg tablet 1 tab PO DAILY Fiber Gummies 2 gram tablet,chewable 2 g PO DAILY Discontinued aspirin [Adult Aspirin Regimen] 81 mg tablet,delayed release (DR/EC) 81 mg PO DAILY Discharge Orders: Discharge Order (Routine); Ordered 07/25/22 Ordered By: Heather Gale Additional Instructions: New Medications: - Eliquis (blood thinner - take 5mg BID for a total of 6 months, then discuss with Dr. Werner if you need to be on this longer term) - Levaquin (antibiotic - take for 2 more days to complete 7 day course for pneumonia) - Rosuvastatin (for cholesterol, take given recent stroke) - Metoprolol (for Blood Pressure and heart function, take this given concern for recent heart attack) - daily iron supplementation (take in the morning with some Vitamin C to best absorb) Followup: - Dr. Werner (PCP, he can place a Cardiology referral) - Dr. Beatty at [facility] Activity Level: Activity as Tolerated Activity Detail: Per PT and OT Discharge Diet: Regular Dysphagia Food: Level 6- Soft & Bite size Follow Up Appointments: Ita Baldwin MD [Staff Physician] - (Set up appointment as needed) Provider,Not a Local [Primary Care Provider] - (Dr. Dexter Beatty, Neurologist at [facility] in [place], 1-2 weeks (clinic number [phone])) Azar Werner MD [Staff Physician] - (see Dr. Werner in 2-3 weeks for hospital discharge f/u (can be done after SNF stay)) Admit to: SNF Discharge Potential: Good Length of Stay: <30 days Can use facility standing orders?: Yes Code Status: Full Code TEDs: N/A Rehab Potential: Good Therapy: Physical Therapy and Occupational Therapy Therapy Orders: Evaluate and Treat, Gait Training and ADL Oxygen: No Urinary Catheter: No Glucose Checks: n/a Next INR: n/a Orders are good >30 days: Yes Signature: Heather Gale MD
--- NOTE | 2022-07-25 10:12 | PC.SOCIAL ---
Addendum entered by RAVI Wick 07/25/22 20:36: Regroover has reviewed and agrees with this note. Original Note: Social work: PAS completed, #[id number]. Social work to follow up as needed.
--- NOTE | 2022-07-25 10:23 | PC.SOCIAL ---
Discharge plan: Pt will be transported to [facility] at 11:00 today by their facility van at dtr's request. Spoke with dtr who is aware and agrees with these plans. Dtr will meet pt at the [facility] at noon. Met with pt who is aware and agrees with this plan. Provided pt with copy of signed Important Notice of Medicare. Pt is aware and pleased with discharge plan. PAS completed and submitted [id number].
[2022-07-25 11:49] VITALS: BP 122/69; PULSE 99; RESP 18; TEMP 36.7
--- NOTE | 2022-07-25 11:53 | PC.NURSE ---
Pt. alert, pleasant and cooperative. Discharged today at 1115 to [facility]. Nurse to Nurse report given to MYRNA Nieto. IV removed from right hand intact. Pt's belongings packed and sent with pt. Discharge instructions given to pt. and signed. verbalized understanding. Pt. transported via [facility] to facility.
[2022-07-25 21:31] LABS: ANCA IFA Pattern None Detected (None Detected); ANCA IFA Titer <1:20 (<1:20); Myeloperoxidase (MPO) Ab, IgG 0 AU/mL (0-19); Serine Proteinase 3 Ab IgG 0 AU/mL (0-19)
== END 2022-07-25 11:15 | DRG 64 ==
LOC: ED 16:24 → MEDSURG 18:28
PROVIDERS: Family Medicine; Admitting Provider Family Medicine; Emergency Provider Family Medicine; Visit Provider Family Medicine
DX: I63.9 Cerebral infarction, unspecified (principal); I21.4 Non-ST elevation (NSTEMI) myocardial infarction; I26.99 Other pulmonary embolism without acute cor pulmonale; J69.0 Pneumonitis due to inhalation of food and vomit; D62 Acute posthemorrhagic anemia; R47.81 Slurred speech; R53.1 Weakness; R29.810 Facial weakness; I10 Essential (primary) hypertension; M48.02 Spinal stenosis, cervical region; Z91.81 History of falling; R15.9 Full incontinence of feces; R32 Unspecified urinary incontinence; Z86.73 Personal history of transient ischemic attack (TIA), and cerebral infarction without residual deficits
CPT/HCPCS: 00731; 36415; 36430; 43235; 70551; 71046; 71260; 72141; 80048; 80076; 81001; 82077; 82330; 82550; 82607; 82803; 83516; 83540; 83550; 83735; 83880; 84484; 85018; 85025; 85045; 85379; 86140; 86255; 86480; 86703; 86850; 86900; 86901; 86922; 87040; 87070; 87081; 87086; 87186; 87502; 87634; 87635; 92610; 93005; 93306; 94640; 97110; 97116; 97161; 97166; 97530; 97535; 99100; 99284; 99285; A9270; C9113; J1650; J2704; J7030; J7512; P9016; Q9967

== ENCOUNTER 2022-08-04 19:24 | Outpatient (CLI) | payer MEDICARE, SELFPAY | END 2022-08-04 19:25 | disposition home or self-care (01) | LOC: AMB 08-08 09:10 | PROVIDERS: PCP Family Medicine; Visit Provider Family Medicine | DX: R42 Dizziness and giddiness (principal) | CPT/HCPCS: A0425; A0427 ==

== ENCOUNTER 2022-08-04 19:40 | Inpatient (IN) | payer MEDICARE, SELFPAY ==
[2022-08-04] VITALS (15 sets, daily range): BP systolic 98–131; BP diastolic 54–76; PULSE 104–110; RESP 14; TEMP 37.4; O2SAT 96–98; BMI 19.0
--- NOTE | 2022-08-04 20:19 | CRLHL7_ITS ---
For Patients: As a result of the Cures Act, medical imaging exams and procedure reports are released immediately into your electronic medical record. You may view this report before your referring provider. If you have questions, please contact your health care provider. INDICATION: Weakness. TECHNIQUE: CT head without contrast. COMPARISON: MRI brain dated 07/21/2022. FINDINGS: Cerebral parenchyma: No evidence of acute territorial infarct. Chronic lacunar infarcts in the bilateral centrum semiovale, unchanged. No significant encephalomalacia in the right cerebellum at the site of recent infarct. No evidence of hemorrhagic conversion. No acute intraparenchymal hemorrhage. No significant mass effect/midline shift. Normal gann-white matter differentiation. Extensive white matter chronic microangiopathic changes. Extra-axial spaces: No extra-axial collection or hemorrhage. Ventricles: Unremarkable. Calvarium: Intact. Visualized paranasal sinuses/mastoid air cells: Mild mucosal thickening in the right sphenoid and right maxillary sinuses. Posterior fossa: No cerebellar tonsillar herniation. Visualized orbits: Thinning of the bilateral lens. No acute abnormality. IMPRESSION: 1. No acute intracranial abnormality. 2. Chronic lacunar infarcts in the bilateral centrum semiovale. 3. No significant encephalomalacia in the right cerebellum at site of recent infarct. No evidence of hemorrhagic conversion. Please note that all CT scans at this facility use dose modulation, iterative reconstruction, and/or weight-based dosing when appropriate to reduce radiation dose to as low as reasonably achievable. Dictated by Carly Burks MD @ 08/04/2022 9:25:40 PM (Electronically Signed)
--- NOTE | 2022-08-04 20:19 | CRLHL7_ITS ---
For Patients: As a result of the Century Cures Act, medical imaging exams and procedure reports are released immediately into your electronic medical record. You may view this report before your referring provider. If you have questions, please contact your health care provider. INDICATION: Weakness. TECHNIQUE: Chest 2 view(s) COMPARISON: CT chest and chest radiograph dated 07/21/2022. FINDINGS/IMPRESSION: Stable cardiomediastinal silhouette and pulmonary vasculature. Hazy interstitial opacities bilaterally, similar to prior study accounting for lung hypoinflation. Cavitary lesions seen on prior CT are not well seen radiographically, and would need CT follow-up to compare. No significant pleural effusion. No pneumothorax. Multilevel degenerative changes of the visualized spine. Dictated by Carly Burks MD @ 08/04/2022 8:57:15 PM (Electronically Signed)
--- NOTE | 2022-08-04 20:23 | ED.WEAKNESS ---
HPI - Weakness General Chief complaint: Weakness Stated complaint: Weakness Time Seen by Provider: 08/04/22 20:06 History of Present Illness HPI Narrative: Pt is a 77 year old gentleman with a complex medical history. [facility] a jail for the past 10 days after being discharged from the hospital where he was treated for a cerebellar stroke, pulmonary embolism, Anemia (for which he received a blood transfusion) and pneumonia. Pt also was noted to have pressure ulcers on his buttocks and left heal. Pt completed an outpt course of Levaquin for the ulcerations and pneumonia. Pt has been overall stable at the jail but has had recurrent epistaxis. Pt was started on Eliquis for his recent PE. Pt over the past few days has developed weakness and occasional dizziness. Pt was to have a hgb check tomorrow but is brought in tonight due to the weakness and dizziness. No fevers, chills, chest pain, nausea or vomiting. No other significant symptoms noted. Related Data Home Medications Medication Instructions Recorded Confirmed acetaminophen 500 mg tablet 1,000 mg PO Q6H PRN 05/12/22 08/04/22 (Tylenol Extra Strength) inulin 2 gram chewable tablet 2 g PO DAILY 07/21/22 08/04/22 (Fiber Gummies) cfdwaiil-aizbacwi-rassx acid 400 1 tab PO DAILY 07/21/22 08/04/22 mcg-vit K 20 mcg-lycop 300 mcg tablet (Men's Daily Formula) VITAFUS 08/04/22 Previous Rx's Medication Instructions Recorded apixaban 5 mg tablet (Eliquis) 5 mg PO BID #60 tabs 07/25/22 ferrous sulfate 325 mg (65 mg 325 mg PO DAILYWM #30 tabs 07/25/22 iron) tablet metoprolol succinate 25 mg 25 mg PO DAILY #30 tabs 07/25/22 tablet,extended release 24 hr rosuvastatin 10 mg tablet 20 mg PO HS #60 tabs 07/25/22 Allergies Allergy/AdvReac Type Severity Reaction Status Date / Time No Known Drug Allergies Allergy Verified 08/04/22 19:58 Review of Systems Status of ROS: Reports: 10 or more systems reviewed and unremarkable except as noted in History and below [facility] Medical History Cerebellar stroke Cervical spinal stenosis Cobalamin deficiency (12/2020) Cognitive impairment Frequent falls History of alcohol abuse History of TIA (transient ischemic attack) and stroke (2012) Incontinence of bowel Incontinence of urine Iron deficiency anemia Left knee pain (11/2020) Leg weakness, bilateral Multiple lacunar infarcts Pneumonia Right knee pain (1970) Surgical History History of cataract extraction History of colectomy (2014) History of repair of left rotator cuff (2008) Status post kyphoplasty Family History Sister Diabetes Other Cancer Social History Narrative: He lives with his in [place]. She has been hospitalized for the last week. Daughter Jannette is BRIT. Code status is full. 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 Tobacco abuse 1-2 packs per day Does not exercise Highest level of school completed/degree received: 10th grade Smoking Status: Current every day smoker What tobacco products do you use: cigarettes Smoking packs per day: 1 Smoking cigarettes per day: 20.0 Years smoked: 68 Smoking pack-years: 68.00 Do you use any of these nicotine containing products: None Second hand tobacco smoke exposure: Yes How often do you have a drink containing alcohol: monthly or less Alcohol type: beer How many standard drinks containing alcohol do you have on a typical day: 1 or 2 How often do you have six or more drinks on one occasion: Never AUDIT-C Alcohol total score: 1 Non-prescribed substance use: denies use Caffeine: Yes (soda) service: No Exam Narrative: Exam Narrative: EXAM GENERAL: Patient appears cachectic and frail. EYES: No scleral icterus. THYROID: no thyroid nodules or thyromegaly. LYMPH: No supraclavicular or cervical lymphadenopathy. SKIN: Pressure ulcer dressed on left heal no signs of erythema Pressure ulcer on the sacral area with minimal skin breakdown and erythema. No overt cellulitis EXT: No dependent lower extremity pedal edema. HEART: Distant heart tones with mild tachycardia LUNGS: Clear to auscultation bilaterally with no crackles or wheezes. ABD: Soft, non tender, non distended. PSYCH: Good eye contact, speech is not pressured. Const: Vital Signs, click to edit/add: Vital Signs - 24 hr 08/04/22 19:47 08/04/22 21:06 08/04/22 21:30 Temperature 99.3 F Pulse Rate 107 H 109 H Pulse Rate [Left P ulse Oximeter] 107 H Respiratory Rate 14 Blood Pressure Blood Pressure [Ri ght Upper Arm] 129/72 Pulse Oximetry 98 97 97 Oxygen Delivery Me thod Room Air 08/04/22 21:32 08/04/22 22:00 08/04/22 22:02 Temperature Pulse Rate 110 H 108 H 107 H Pulse Rate [Left P ulse Oximeter] Respiratory Rate Blood Pressure 124/75 98/54 L Blood Pressure [Ri ght Upper Arm] Pulse Oximetry 96 96 97 Oxygen Delivery Me thod 08/04/22 22:30 08/04/22 22:32 08/04/22 23:00 Temperature Pulse Rate 108 H 106 H 105 H Pulse Rate [Left P ulse Oximeter] Respiratory Rate Blood Pressure 109/63 Blood Pressure [Ri ght Upper Arm] Pulse Oximetry 96 97 97 Oxygen Delivery Me thod 08/04/22 23:02 08/05/22 00:10 08/05/22 00:36 Temperature 99.9 F H 99.8 F H Pulse Rate 105 H 105 H 105 H Pulse Rate [Left P ulse Oximeter] Respiratory Rate 20 18 Blood Pressure 129/76 121/70 123/69 Blood Pressure [Ri ght Upper Arm] Pulse Oximetry 98 96 96 Oxygen Delivery Me thod 08/04/22 23:03 08/04/22 23:15 08/04/22 23:36 Temperature Pulse Rate 106 H 107 H 106 H Pulse Rate [Left P ulse Oximeter] Respiratory Rate Blood Pressure Blood Pressure [Ri ght Upper Arm] Pulse Oximetry 98 97 96 Oxygen Delivery Me thod 08/04/22 23:37 08/04/22 23:45 08/05/22 00:00 Temperature Pulse Rate 105 H 104 H 105 H Pulse Rate [Left P ulse Oximeter] Respiratory Rate Blood Pressure 131/68 Blood Pressure [Ri ght Upper Arm] Pulse Oximetry 96 97 96 Oxygen Delivery Me thod 08/05/22 00:02 08/05/22 00:13 08/05/22 00:15 Temperature Pulse Rate 105 H 106 H 106 H Pulse Rate [Left P ulse Oximeter] Respiratory Rate Blood Pressure 120/68 121/70 Blood Pressure [Ri ght Upper Arm] Pulse Oximetry 96 97 96 Oxygen Delivery Me thod 08/05/22 00:30 08/05/22 00:32 08/05/22 00:45 Temperature 99.9 F H Pulse Rate 106 H 106 H 107 H Pulse Rate [Left P ulse Oximeter] Respiratory Rate 16 Blood Pressure 123/69 126/72 Blood Pressure [Ri ght Upper Arm] Pulse Oximetry 96 96 96 Oxygen Delivery Me thod 08/05/22 00:45 08/05/22 00:33 08/05/22 00:45 Temperature Pulse Rate 106 H 108 H Pulse Rate [Left P ulse Oximeter] Respiratory Rate Blood Pressure Blood Pressure [Ri ght Upper Arm] Pulse Oximetry 97 96 96 Oxygen Delivery Me thod 08/05/22 00:46 08/05/22 01:00 08/05/22 01:02 Temperature Pulse Rate 107 H 105 H 106 H Pulse Rate [Left P ulse Oximeter] Respiratory Rate Blood Pressure 126/72 126/67 Blood Pressure [Ri ght Upper Arm] Pulse Oximetry 96 96 96 Oxygen Delivery Me thod 08/05/22 01:30 08/05/22 02:26 08/05/22 02:37 Temperature 98.4 F 100.6 F H 100.6 F H Pulse Rate 102 H 100 101 H Pulse Rate [Left P ulse Oximeter] Respiratory Rate 20 16 Blood Pressure 134/78 122/80 122/72 Blood Pressure [Ri ght Upper Arm] Pulse Oximetry 97 96 Oxygen Delivery Me thod 08/05/22 02:59 08/05/22 02:52 08/05/22 03:30 Temperature 99.5 F 99.5 F 99.5 F Pulse Rate 99 92 Pulse Rate [Left P ulse Oximeter] Respiratory Rate 16 16 Blood Pressure 132/83 125/69 Blood Pressure [Ri ght Upper Arm] Pulse Oximetry 97 Oxygen Delivery Me thod 08/05/22 03:52 08/05/22 06:17 08/05/22 06:40 Temperature 99.5 F Pulse Rate 90 Pulse Rate [Left P ulse Oximeter] 83 Respiratory Rate 16 16 Blood Pressure 124/72 Blood Pressure [Ri ght Upper Arm] 110/63 114/64 Pulse Oximetry 98 99 Oxygen Delivery Me thod Room Air Room Air 08/05/22 07:30 08/05/22 07:30 Temperature 97.3 F L Pulse Rate Pulse Rate [Left P ulse Oximeter] 86 Respiratory Rate 16 Blood Pressure Blood Pressure [Ri ght Upper Arm] 101/59 L 105/57 L Pulse Oximetry 96 97 Oxygen Delivery Me thod Room Air Room Air Course Course Hospital Course: Pt seen and examined. CT of the head, troponin, lactate, urinalysis, cbc, cmp, chest x ray, ekg ordered. Reevaluation(s) Reevaluation #1: Pt resting comfortably. CT of head without acute changes. Chest x ray shows no acute findings but does show chronic cavitary lesions which will require CT follow up. Labs show mild elevation of WBC as well as Hgb of 7.6 and troponin of 0.05. Pt type and screened and will receive 2 units RBC. Case discussed with hospitalist. No room and no room elsewhere. Will have to board in the ED. EKG shows sinus tachycardia with no acute ST or T wave changes. Time: 22:08 Reevaluation #2: Spoke with Cardiology at [facility] about Troponin of 0.05. EKG shows no acute findings other than tachycardia. Cardiology recommends continued eliquis and metoprolol and repeat troponin in am after blood transfusion. Time: 23:17 Reevaluation #3: Both pressure ulcers cleaned and fresh dressings placed. Time: 23:52 Vital Signs Vital signs: Initial Vital Signs Temperature 99.3 F 08/04/22 19:47 Temperature Source Temporal Artery Scan 08/04/22 19:47 Pulse Rate 107 H 08/04/22 19:47 Respiratory Rate 14 08/04/22 19:47 Blood Pressure 129/72 08/04/22 19:47 Blood Pressure Mean 91 08/04/22 19:47 Blood Pressure Position Supine 08/04/22 19:47 Pulse Oximetry 98 08/04/22 19:47 Oxygen Delivery Method 08/04/22 19:47 Vital Signs Temperature 99.3 F 08/04/22 19:47 Pulse Rate 107 H 08/04/22 19:47 Respiratory Rate 14 08/04/22 19:47 Blood Pressure 129/72 08/04/22 19:47 Pulse Oximetry 98 08/04/22 19:47 Oxygen Delivery Method 08/04/22 19:47 Temperature 97.3 F L 08/05/22 07:30 Pulse Rate 86 08/05/22 07:30 Respiratory Rate 16 08/05/22 07:30 Blood Pressure 105/57 L 08/05/22 07:30 Pulse Oximetry 97 08/05/22 07:30 Oxygen Delivery Method 08/05/22 07:30 MDM - Weakness MDM Narrative Medical decision making narrative: Pt with a complex history as noted above including anemia presents with recent epistaxis and weakness. Pt found to be mildly tachycardic but in otherwise stable condition. Pt found to have a Hgb of 7.6 and a troponin of 0.05. EKG showed normal sinus rhythm no ST or T wave changes. Case discussed with Cardiology who recommended a repeat Troponin in the am after blood infused. No further medical changes. Continue Eliquis. Pt boarding in the ED as no beds available. Rest of labs fairly stable with contamination on UA. Repeat Hgb 9.4 with repeat Troponin 0.06. Case admitted to [facility] for further evauation and treatment. Cardiology recommendations explained. No further epistaxis during his stay in the ED. l Differential Diagnosis Differential diagnosis: Likely acute myocardial infarction, anemia, hypoglycemia, hypothyroidism, rhabdomyolysis, sepsis and dehydration Lab Data Labs: Lab Results 08/04/22 08/04/22 08/04/22 Range/Units 21:05 21:05 21:05 WBC 18.76 H (4.50-11.00) K/uL RBC 2.47 L (4.30-5.90) m/uL Hgb 7.6 L* (13.5-17.5) gm/dL Hct 23.5 L (37.0-53.0) % MCV 95 (80-100) fL MCH 31 (26-34) pg MCHC 32 (32-36) gm/dL RDW Coeff of Isabel 14.5 (11.5-15.5) % Plt Count 452 H (140-440) K/uL Neut % (Auto) 86.5 H (42.0-72.0) % Lymph % (Auto) 6.7 L (20-44) % [place] % (Auto) 4.2 (0.0-11.0) % Eos % (Auto) 2.1 (0.0-7.0) % Baso % (Auto) 0.3 (0.0-3.0) % Neut # (Auto) 16.20 H (1.7-7.0) K/uL Lymph # (Auto) 1.30 (0.90-2.90) K/uL [place] # (Auto) 0.80 (0.00-0.90) K/UL Eos # (Auto) 0.40 (0.00-0.50) K/uL Baso # (Auto) 0.10 (0.00-0.30) K/uL Sodium 132 L (135-149) mmol/L Potassium 4.3 (3.6-5.1) mmol/L Chloride 102 (96-114) mmol/L Carbon Dioxide 26 (20-32) mmol/L BUN 25 (7-30) mg/dL Creatinine 1.1 (0.5-1.5) mg/dL Estimated Creat Clear 45.82 Estimated GFR 70 ml/min Glucose 208 H (60-115) mg/dL Lactate 1.3 (0.5-1.9) mmol/L Calcium 8.2 L (8.4-10.6) mg/dL Total Bilirubin 0.4 (0.1-1.5) mg/dL AST 70 H (12-35) U/L ALT 47 (4-50) U/L Alkaline Phosphatase 119 (40-150) U/L Troponin I 0.05 H (0.01-0.04) ng/mL Total Protein 7.1 (6.0-8.3) g/dL Albumin 3.2 L (3.3-5.0) g/dL SARS-CoV-2 (PCR) (Negative) Influenza Type A (PCR) (Negative) Influenza Type B (PCR) (Negative) RSV (PCR) (Negative) Blood Type Antibody Screen Crossmatch (AHG) 08/04/22 08/05/22 08/05/22 Range/Units 21:05 01:15 05:15 WBC (4.50-11.00) K/uL RBC (4.30-5.90) m/uL Hgb 9.4 L (13.5-17.5) gm/dL Hct (37.0-53.0) % MCV (80-100) fL MCH (26-34) pg MCHC (32-36) gm/dL RDW Coeff of Isabel (11.5-15.5) % Plt Count (140-440) K/uL Neut % (Auto) (42.0-72.0) % Lymph % (Auto) (20-44) % [place] % (Auto) (0.0-11.0) % Eos % (Auto) (0.0-7.0) % Baso % (Auto) (0.0-3.0) % Neut # (Auto) (1.7-7.0) K/uL Lymph # (Auto) (0.90-2.90) K/uL [place] # (Auto) (0.00-0.90) K/UL Eos # (Auto) (0.00-0.50) K/uL Baso # (Auto) (0.00-0.30) K/uL Sodium (135-149) mmol/L Potassium (3.6-5.1) mmol/L Chloride (96-114) mmol/L Carbon Dioxide (20-32) mmol/L BUN (7-30) mg/dL Creatinine (0.5-1.5) mg/dL Estimated Creat Clear Estimated GFR ml/min Glucose (60-115) mg/dL Lactate (0.5-1.9) mmol/L Calcium (8.4-10.6) mg/dL Total Bilirubin (0.1-1.5) mg/dL AST (12-35) U/L ALT (4-50) U/L Alkaline Phosphatase (40-150) U/L Troponin I (0.01-0.04) ng/mL Total Protein (6.0-8.3) g/dL Albumin (3.3-5.0) g/dL SARS-CoV-2 (PCR) Negative SARS-CoV-2 (Negative) Influenza Type A (PCR) Negative PCR FLU A (Negative) Influenza Type B (PCR) Negative PCR FLU B (Negative) RSV (PCR) Negative PCR RSV (Negative) Blood Type A Negative Antibody Screen NEGATIVE Crossmatch (AHG) See Detail 08/05/22 Range/Units 05:15 WBC (4.50-11.00) K/uL RBC (4.30-5.90) m/uL Hgb (13.5-17.5) gm/dL Hct (37.0-53.0) % MCV (80-100) fL MCH (26-34) pg MCHC (32-36) gm/dL RDW Coeff of Isabel (11.5-15.5) % Plt Count (140-440) K/uL Neut % (Auto) (42.0-72.0) % Lymph % (Auto) (20-44) % [place] % (Auto) (0.0-11.0) % Eos % (Auto) (0.0-7.0) % Baso % (Auto) (0.0-3.0) % Neut # (Auto) (1.7-7.0) K/uL Lymph # (Auto) (0.90-2.90) K/uL [place] # (Auto) (0.00-0.90) K/UL Eos # (Auto) (0.00-0.50) K/uL Baso # (Auto) (0.00-0.30) K/uL Sodium (135-149) mmol/L Potassium (3.6-5.1) mmol/L Chloride (96-114) mmol/L Carbon Dioxide (20-32) mmol/L BUN (7-30) mg/dL Creatinine (0.5-1.5) mg/dL Estimated Creat Clear Estimated GFR ml/min Glucose (60-115) mg/dL Lactate (0.5-1.9) mmol/L Calcium (8.4-10.6) mg/dL Total Bilirubin (0.1-1.5) mg/dL AST (12-35) U/L ALT (4-50) U/L Alkaline Phosphatase (40-150) U/L Troponin I 0.06 H* (0.01-0.04) ng/mL Total Protein (6.0-8.3) g/dL Albumin (3.3-5.0) g/dL SARS-CoV-2 (PCR) (Negative) Influenza Type A (PCR) (Negative) Influenza Type B (PCR) (Negative) RSV (PCR) (Negative) Blood Type Antibody Screen Crossmatch (AHG) Discharge Plan Discharge Clinical Impression: Anemia, Elevated troponin Activity Level: Other Discharge Diet: Other Prescriptions: No Action acetaminophen [Tylenol Extra Strength] 500 mg tablet 1,000 mg PO Q6H PRN Men's Daily Formula 400-20-300 mcg tablet 1 tab PO DAILY Fiber Gummies 2 gram tablet,chewable 2 g PO DAILY ferrous sulfate 325 mg (65 mg iron) Tablet 325 mg PO DAILYWM Qty: 30 0RF metoprolol succinate 25 mg Tablet Extended Release 24 Hr 25 mg PO DAILY Qty: 30 0RF rosuvastatin 10 mg Tablet 20 mg PO HS Qty: 60 0RF Eliquis 5 mg Tablet 5 mg PO BID Qty: 60 1RF VITAFUS Follow Up/Referrals: Stuart Apple MD [Primary Care Provider] -
[2022-08-04 21:10] LABS: Lactate* 1.3 mmol/L (0.5-1.9)
[2022-08-04 21:15] LABS: Basophils Percent Auto 0.3 % (0.0-3.0); Eosinophils Percent Auto 2.1 % (0.0-7.0); Hematocrit 23.5 % (37.0-53.0); Immature Granulocytes Pct Auto 0.2 %; Lymphocytes Percent Auto 6.7 % (20-44); Mean Corpuscular HGB Conc 32 gm/dL (32-36); Mean Corpuscular Hemoglobin 31 pg (26-34); Mean Corpuscular Volume 95 fL (80-100); Monocytes Percent Auto 4.2 % (0.0-11.0); Neutrophils Percent Auto 86.5 % (42.0-72.0); Platelet Count* 452 K/uL (140-440); RDW Coefficient of Variation % 14.5 % (11.5-15.5); Red Blood Count 2.47 m/uL (4.30-5.90); White Blood Count* 18.76 K/uL (4.50-11.00)
[2022-08-04 21:23] LABS: Hemoglobin* 7.6 gm/dL (13.5-17.5); Slide Review Reflex No
[2022-08-04 21:25] LABS: Albumin* 3.2 g/dL (3.3-5.0); Chloride* 102 mmol/L (96-114); Sodium* 132 mmol/L (135-149)
[2022-08-04 21:26] LABS: Potassium* 4.3 mmol/L (3.6-5.1)
[2022-08-04 21:28] LABS: Alanine Aminotransferase* 47 U/L (4-50); Alkaline Phosphatase* 119 U/L (40-150); Aspartate Amino Transferase* 70 U/L (12-35); Bilirubin Total* 0.4 mg/dL (0.1-1.5); Blood Urea Nitrogen* 25 mg/dL (7-30); Carbon Dioxide* 26 mmol/L (20-32); Creatinine* 1.1 mg/dL (0.5-1.5); Est. Creatinine Clearance* 45.82; Estimated Glomerular Filt Rate 70 ml/min; Glucose* 208 mg/dL (60-115); Total Protein* 7.1 g/dL (6.0-8.3)
[2022-08-04 21:29] LABS: Calcium* 8.2 mg/dL (8.4-10.6)
[2022-08-04 21:40] LABS: Troponin I* 0.05 ng/mL (0.01-0.04)
--- NOTE | 2022-08-04 22:43 | ED.NURSE ---
Pt unable to give UA at this time. aware and is okay to wait for clean catch sample.
--- NOTE | 2022-08-04 22:43 | ED.NURSE ---
Call to [facility] for MD consult.
--- NOTE | 2022-08-04 22:51 | ED.NURSE ---
on phone with [facility].
--- NOTE | 2022-08-04 23:47 | ED.NURSE ---
Pt's depends soiled. Pt cleaned and changed. Pt's clothing removed and placed in clean gown. Pt has reddened sore on sacrum that pt states is very painful. Mepilex Border Sacrum placed on pt's sacrum and MD updated.
[2022-08-05] VITALS (28 sets, daily range): BP systolic 97–134; BP diastolic 57–83; PULSE 83–108; RESP 16–36; TEMP 36.3–38.1; O2SAT 96–99; BMI 17.7
--- NOTE | 2022-08-05 00:06 | ED.NURSE ---
Black pressure sore on pt's left heel. Rectangle mepilex pad placed. aware.
[2022-08-05] MEDS: 0.9 % SODIUM CHLORIDE 250 ml IV (00:30)
--- NOTE | 2022-08-05 01:36 | ED.NURSE ---
1 hour transfusion vitals documented. patient resting comfortably in room.
[2022-08-05] MEDS: ROSUVASTATIN CALCIUM 10 MG TABLET PO (01:37)
[2022-08-05 02:11] LABS: PCR FLU A Negative PCR FLU A (Negative); PCR FLU B Negative PCR FLU B (Negative); PCR RSV Negative PCR RSV (Negative); SARS PCR* Negative SARS-CoV-2 (Negative)
[2022-08-05] MEDS: ACETAMINOPHEN 500 MG TABLET 1000 MG PO (02:59)
--- NOTE | 2022-08-05 03:57 | ED.NURSE ---
Transfusions complete. Patient resting comfortably in room.
--- NOTE | 2022-08-05 04:12 | ED.NURSE ---
Lab in room for Trop and Hemoglobin redraw.
--- NOTE | 2022-08-05 05:13 | ED.NURSE ---
Depends changed. Saturated in urine. Bottom cleaned. Sacrum pad intact.
[2022-08-05 05:22] LABS: Hemoglobin* 9.4 gm/dL (13.5-17.5)
[2022-08-05 05:53] LABS: Troponin I* 0.06 ng/mL (0.01-0.04)
--- NOTE | 2022-08-05 07:45 | ED.NURSE ---
repositioned patient and changed attends as has foul smelling. noted to have a dressing on the lower back.
--- NOTE | 2022-08-05 09:49 | ED.NURSE ---
Given report to Danni Valles who will admit patient to M/[facility] via cart and with telemetry. plan to admit to room 278.
--- NOTE | 2022-08-05 11:34 | PC.SOCIAL ---
Discharge planning: Spoke with pt's dtr, Jannette, who confirmed there is a bed hold at the [facility] and pt is expected to return to that half-way when ready for discharge.
--- NOTE | 2022-08-05 12:00 | W.PM.CROSSCO ---
Assessment and Plan Assessment and plan (1) Elevated troponin: Status: Acute (2) Cognitive impairment: Status: Acute (3) Cerebellar stroke: Problem comment: - right cerebellar lacunar - likely acute, based on history from family. Will use anticoagulation rather than antiplatelet therapy due to PE, statin initiated as well - followed by PT and OT during stay, TCU recommended Status: Acute (4) Pulmonary emboli: Problem comment: - diagnosed on admission CT 07/21 - Eliquis initiated on admission, will continue upon discharge as no acute bleeding noted on EGD Status: Acute (5) Anemia: Problem comment: - labs c/w iron deficiency but no microcytosis. + guaiac - EGD performed with General Surgery 07/24, no evidence of acute bleeding - transfused 1U PRBCs for hemoglobin of 7 on 07/23/22, discharge hemoglobin 9.2 - Outpatient colonoscopy after TCU stay - monitor outpatient hemoglobin given need for anticoagulation given acute PE Status: Acute Plan [facility] Hospitalist Consult for Admission eHospitalist was contacted with request of consultation for admission. 77-year-old male, past medical history significant for recently diagnosed PE, cerebellar stroke, HTN, who presents with generalized weakness. Patient recently admitted, found to be anemic, with NSTEMI and PE. Patient was placed on Eliquis. Discharged to SNF. Patient has had episodes of epistaxis. Now coming to ED with complaints of generalized weakness. Patient is generally poor historian. Does endorse nosebleeds, but is unsure how frequently or to what extent. Does endorse feeling cold, but denies a fevers or chills. Endorses an occasional tickle in his chest, which lasts a couple seconds, but resolved spontaneously. Denies any shortness of breath. Denies any nausea/vomiting. Reports he had dysuria couple weeks ago, but has since resolved. States his bowels ain't working and has not had a bowel movement for 2 weeks but is passing gas. On arrival to the ED, patient found to be anemic, transfused [address] head negative for acute findings. Troponin just elevated at 0.05, trended to 0.06. Case was discussed by ED physician with cardiology, who recommended continuing trending troponin, continuing Eliquis. Patient states he is feeling much better following the PRBC transfusion. Exam (performed via interactive video with assistance of bedside nurse): General: alert, cooperative, no acute distress HEENT: oral mucosa pink and moist. Posterior oropharynx erythematous Lungs: clear to auscultation bilaterally without crackle or wheeze CV: regular rate and rhythm without loud murmur rub or gallop Abd: Left lower quadrant tenderness with palpation done by bedside nurse. + Bowel sounds Ext: 1+ edema left foot, 2+ edema right foot Skin: no rashes, bruises or lesions appreciated on gross visualization of exposed skin. Reported redness on buttocks Neuro: alert, oriented x 3. facial muscles grossly intact, moves all extremities without any significant focal deficit appreciated by nurse #Acute on chronic anemia, acute blood loss #Elevated troponin #Weakness, generalized #Constipation ? Patient describes episodes of epistaxis over the past several weeks. However unable to quantify exactly how often or how much. Patient likely warrants GI work-up with ongoing anemia. Hemoccult will be useless given +epistaxis. Patient received 2 units PRBC in the ED, with improvement in symptoms. Recommend trending hemoglobin daily, unless evidence of active bleeding or hemodynamic instability. Iron studies not of much utility now since already received PRBC. ? Regarding slightly elevated troponin, could be demand ischemia in the setting of anemia. ER physician discussed with cardiology, given no acute changes on EKG, recommended continuing apixaban, and trending troponin. Patient does describe twinges chest pain, which last for only a couple seconds then resolve spontaneously, can occur at rest or with activity. No associated SOB. Does not seem classic of cardiac chest pain. ? Will start bowel regimen Thank you for including [facility] in this patient's care. This service is available for further assistance as requested by your care team by calling [phone]. Dictation Comment: This document was transcribed utilizing [id number] technology ([employer] Occasional mistranslation may occur.
--- NOTE | 2022-08-05 14:48 | P.IMHP_ITS ---
Hospitalist- H&P: HPI History of Present Illness Date Seen: 08/05/22 Chief complaint: Weakness Narrative: ADMISSION HISTORY AND PHYSICAL - HOSPITALIST Chief Complaint: blood loss, epistaxis. HPI: 77-year-old who was just recently on our service for an acute cerebellar stroke, PE, non STEMI who was initiated on Eliquis anticoagulation and discharge to [facility] for acute rehab. He has been at rehab for about 2 weeks and he has been having intermittent epistaxis. He has become increasingly weak and easily confused. He was brought back to our ER secondary to this and found to be markedly anemic from presumed ADL a related to recurrent epistaxis secondary to anti coagulation initiation. Patient recently admitted, found to be anemic, with NSTEMI and PE. Patient was placed on Eliquis. Discharged to SNF. Patient has had episodes of epistaxis. Now coming to ED with complaints of generalized weakness. Patient is generally poor historian. Does endorse nosebleeds, but is unsure how frequently or to what extent. Does endorse feeling cold, but denies a fevers or chills. Endo rses an occasional tickle in his chest, which lasts a couple seconds, but resolved spontaneously. Denies any shortness of breath. Denies any nausea/vomiting. Reports he had dysuria couple weeks ago, but has since resolved. States his bowels ain't working and has not had a bowel movement for 2 weeks but is passing gas. On arrival to the ED, patient found to be anemic, transfused [address] head negative for acute findings. Troponin just elevated at 0.05, trended to 0.06. Case was discussed by ED physician with cardiology, who recommended continuing trending troponin, continuing Eliquis. Patient states he is feeling much better following the PRBC transfusion. I've updated the PFSH, medications and allergies in the [facility] tabs. INVESTIGATIONS: LABS/MICRO/ECG/IMAGING vitals: soft BP, pulse 91. mildly tachypneic - RA 98% Hemoglobin is up to 9.4 as of 5am this morning, no further bleeding Elevated white blood cell count up to 18.76 with 86.5% neutrophils, platelets are also reactive. Chemistries reveal his sodium is 132. Normal electrolytes otherwise. Normal renal function. Glucose is 208. New bump in his AST of 70 Troponin is slowly up trending 0.05-0.[address] 1. No acute intracranial abnormality. 2. Chronic lacunar infarcts in the bilateral centrum semiovale. 3. No significant encephalomalacia in the right cerebellum at site of recent infarct. No evidence of hemorrhagic conversion. Chest Xray Stable cardiomediastinal silhouette and pulmonary vasculature. Hazy interstitial opacities bilaterally, similar to prior study accounting for lung hypoinflation. Cavitary lesions seen on prior CT are not well seen radiographically, and would need CT follow-up to compare. No significant pleural effusion. No pneumothorax. Multilevel degenerative changes of the visualized spine. Normal EGD, 07/21/2022 REVIEW OF SYSTEMS: 12-point ROS completed with patient and negative unless otherwise stated in HPI or below. PHYSICAL EXAM: CODE STATUS: Full Code CONSTITUTIONAL: weepy, has slurring residual from stroke earlier this month. VITAL SIGNS: see record. HEENT: caking and dried blood in and near right nostril. NECK: No JVD. No carotid bruit, no thyromegaly, no adenopathy. CHEST: Clear to auscultation bilaterally HEART: S1 and S2 normal. No harsh murmurs. no edema MUSCULOSKELETAL: No gross joint deformity or swelling. NEURO: Cranial nerves intact. Grossly intact. No asymmetric findings. SKIN: decub ulcers on sacrum and heel. low grade. PSYCHIATRIC: Euthymic. ADMIT TO MEDSURG: FLOOR CARE DVT: continue eliquis GI: PO intake Time spent: 70 minutes examining patient, conferring with family and patient, care staff, developing care plan [facility] Medical History Cerebellar stroke Cervical spinal stenosis Cobalamin deficiency (12/2020) Cognitive impairment Frequent falls History of alcohol abuse History of TIA (transient ischemic attack) and stroke (2012) Incontinence of bowel Incontinence of urine Iron deficiency anemia Left knee pain (11/2020) Leg weakness, bilateral Multiple lacunar infarcts Pneumonia Right knee pain (1970) Surgical History History of cataract extraction History of colectomy (2014) History of repair of left rotator cuff (2008) Status post kyphoplasty Family History Sister Diabetes Other Cancer Social History Narrative: He lives with his in [place]. She has been hospitalized for the last week. Daughter Jannette is POA. Code status is full. 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 Tobacco abuse 1-2 packs per day Does not exercise Highest level of school completed/degree received: 10th grade Smoking Status: Former smoker Do you use any of these nicotine containing products: None Second hand tobacco smoke exposure: Yes How often do you have a drink containing alcohol: monthly or less Alcohol type: beer How many standard drinks containing alcohol do you have on a typical day: 1 or 2 How often do you have six or more drinks on one occasion: Never AUDIT-C Alcohol total score: 1 Non-prescribed substance use: denies use Caffeine: Yes (soda) service: No Meds Home Medications and Allergies Home Medications Medication Instructions Recorded Confirmed Type acetaminophen 500 mg tablet 1,000 mg PO Q6H PRN 05/12/22 08/04/22 History (Tylenol Extra Strength) inulin 2 gram chewable tablet 2 g PO DAILY 07/21/22 08/04/22 History (Fiber Gummies) citookvm-tdqihdeq-gerkc acid 400 1 tab PO DAILY 07/21/22 08/04/22 History mcg-vit K 20 mcg-lycop 300 mcg tablet (Men's Daily Formula) Allergies Allergy/AdvReac Type Severity Reaction Status Date / Time No Known Drug Allergies Allergy Verified 08/04/22 19:58 Exam Const: Vital Signs, click to edit/add: Vital Signs - 24 hr 08/04/22 19:47 08/04/22 21:06 08/04/22 21:30 Temperature 99.3 F Pulse Rate 107 H 109 H Pulse Rate [Left P ulse Oximeter] 107 H Pulse Rate [Right Pulse Oximeter] Respiratory Rate 14 Blood Pressure Blood Pressure [Ri ght Arm] Blood Pressure [Ri ght Upper Arm] 129/72 Pulse Oximetry 98 97 97 Oxygen Delivery Me thod Room Air 08/04/22 21:32 08/04/22 22:00 08/04/22 22:02 Temperature Pulse Rate 110 H 108 H 107 H Pulse Rate [Left P ulse Oximeter] Pulse Rate [Right Pulse Oximeter] Respiratory Rate Blood Pressure 124/75 98/54 L Blood Pressure [Ri ght Arm] Blood Pressure [Ri ght Upper Arm] Pulse Oximetry 96 96 97 Oxygen Delivery Me thod 08/04/22 22:30 08/04/22 22:32 08/04/22 23:00 Temperature Pulse Rate 108 H 106 H 105 H Pulse Rate [Left P ulse Oximeter] Pulse Rate [Right Pulse Oximeter] Respiratory Rate Blood Pressure 109/63 Blood Pressure [Ri ght Arm] Blood Pressure [Ri ght Upper Arm] Pulse Oximetry 96 97 97 Oxygen Delivery Me thod 08/04/22 23:02 08/05/22 00:10 08/05/22 00:36 Temperature 99.9 F H 99.8 F H Pulse Rate 105 H 105 H 105 H Pulse Rate [Left P ulse Oximeter] Pulse Rate [Right Pulse Oximeter] Respiratory Rate 20 18 Blood Pressure 129/76 121/70 123/69 Blood Pressure [Ri ght Arm] Blood Pressure [Ri ght Upper Arm] Pulse Oximetry 98 96 96 Oxygen Delivery Me thod 08/04/22 23:03 08/04/22 23:15 08/04/22 23:36 Temperature Pulse Rate 106 H 107 H 106 H Pulse Rate [Left P ulse Oximeter] Pulse Rate [Right Pulse Oximeter] Respiratory Rate Blood Pressure Blood Pressure [Ri ght Arm] Blood Pressure [Ri ght Upper Arm] Pulse Oximetry 98 97 96 Oxygen Delivery Me thod 08/04/22 23:37 08/04/22 23:45 08/05/22 00:00 Temperature Pulse Rate 105 H 104 H 105 H Pulse Rate [Left P ulse Oximeter] Pulse Rate [Right Pulse Oximeter] Respiratory Rate Blood Pressure 131/68 Blood Pressure [Ri ght Arm] Blood Pressure [Ri ght Upper Arm] Pulse Oximetry 96 97 96 Oxygen Delivery Me thod 08/05/22 00:02 08/05/22 00:13 08/05/22 00:15 Temperature Pulse Rate 105 H 106 H 106 H Pulse Rate [Left P ulse Oximeter] Pulse Rate [Right Pulse Oximeter] Respiratory Rate Blood Pressure 120/68 121/70 Blood Pressure [Ri ght Arm] Blood Pressure [Ri ght Upper Arm] Pulse Oximetry 96 97 96 Oxygen Delivery Me thod 08/05/22 00:30 08/05/22 00:32 08/05/22 00:45 Temperature 99.9 F H Pulse Rate 106 H 106 H 107 H Pulse Rate [Left P ulse Oximeter] Pulse Rate [Right Pulse Oximeter] Respiratory Rate 16 Blood Pressure 123/69 126/72 Blood Pressure [Ri ght Arm] Blood Pressure [Ri ght Upper Arm] Pulse Oximetry 96 96 96 Oxygen Delivery Me thod 08/05/22 00:45 08/05/22 00:33 08/05/22 00:45 Temperature Pulse Rate 106 H 108 H Pulse Rate [Left P ulse Oximeter] Pulse Rate [Right Pulse Oximeter] Respiratory Rate Blood Pressure Blood Pressure [Ri ght Arm] Blood Pressure [Ri ght Upper Arm] Pulse Oximetry 97 96 96 Oxygen Delivery Me thod 08/05/22 00:46 08/05/22 01:00 08/05/22 01:02 Temperature Pulse Rate 107 H 105 H 106 H Pulse Rate [Left P ulse Oximeter] Pulse Rate [Right Pulse Oximeter] Respiratory Rate Blood Pressure 126/72 126/67 Blood Pressure [Ri ght Arm] Blood Pressure [Ri ght Upper Arm] Pulse Oximetry 96 96 96 Oxygen Delivery Me thod 08/05/22 01:30 08/05/22 02:26 08/05/22 02:37 Temperature 98.4 F 100.6 F H 100.6 F H Pulse Rate 102 H 100 101 H Pulse Rate [Left P ulse Oximeter] Pulse Rate [Right Pulse Oximeter] Respiratory Rate 20 16 Blood Pressure 134/78 122/80 122/72 Blood Pressure [Ri ght Arm] Blood Pressure [Ri ght Upper Arm] Pulse Oximetry 97 96 Oxygen Delivery Me thod 08/05/22 02:59 08/05/22 02:52 08/05/22 03:30 Temperature 99.5 F 99.5 F 99.5 F Pulse Rate 99 92 Pulse Rate [Left P ulse Oximeter] Pulse Rate [Right Pulse Oximeter] Respiratory Rate 16 16 Blood Pressure 132/83 125/69 Blood Pressure [Ri ght Arm] Blood Pressure [Ri ght Upper Arm] Pulse Oximetry 97 Oxygen Delivery Me thod 08/05/22 03:52 08/05/22 06:17 08/05/22 06:40 Temperature 99.5 F Pulse Rate 90 Pulse Rate [Left P ulse Oximeter] 83 Pulse Rate [Right Pulse Oximeter] Respiratory Rate 16 16 Blood Pressure 124/72 Blood Pressure [Ri ght Arm] Blood Pressure [Ri ght Upper Arm] 110/63 114/64 Pulse Oximetry 98 99 Oxygen Delivery Me thod Room Air Room Air 08/05/22 07:30 08/05/22 07:30 08/05/22 10:29 Temperature 97.3 F L Pulse Rate Pulse Rate [Left P ulse Oximeter] 86 Pulse Rate [Right Pulse Oximeter] 91 Respiratory Rate 16 31 H Blood Pressure Blood Pressure [Ri ght Arm] 97/71 Blood Pressure [Ri ght Upper Arm] 101/59 L 105/57 L Pulse Oximetry 96 97 98 Oxygen Delivery Me thod Room Air Room Air Room Air Hospitalist - H&P: Result Labs Labs: Short CBC 08/04/22 08/05/22 Range/Units 21:05 05:15 WBC 18.76 H (4.50-11.00) K/uL Hgb 7.6 L* 9.4 L (13.5-17.5) gm/dL Hct 23.5 L (37.0-53.0) % Plt Count 452 H (140-440) K/uL BMP 08/04/22 21:05 Sodium 132 L Potassium 4.3 Chloride 102 Carbon Dioxide 26 BUN 25 Creatinine 1.1 Glucose 208 H Calcium 8.2 L Cardiac Enzymes 08/04/22 08/05/22 Range/Units 21:05 05:15 Troponin I 0.05 H 0.06 H* (0.01-0.04) ng/mL Liver Function 08/04/22 Range/Units 21:05 Total Bilirubin 0.4 (0.1-1.5) mg/dL AST 70 H (12-35) U/L ALT 47 (4-50) U/L Alkaline Phosphatase 119 (40-150) U/L Albumin 3.2 L (3.3-5.0) g/dL Assessment and Plan Assessment and plan (1) ABLA (acute blood loss anemia): Problem comment: Epistaxis. I discussed the case with ENT. He suggested placing a half of cotton ball with Vaseline in the right nostril. Removed at night. Restart in the morning. He said he would come up and visit the patient bedside tomorrow with likely follow-up next week in clinic. Trend hemoglobin. Replace as needed. Status: Acute (2) Demand ischemia: Problem comment: Troponin is already returning to normal. No chest pain. Following clinically. Status: Acute (3) Cerebellar stroke: Problem comment: - right cerebellar lacunar - acute on chronic findings. Reviewed previous imaging from last admission. Continue Eliquis. - followed by PT and OT during stay, return to [facility] this week Status: Acute (4) Pulmonary emboli: Problem comment: - diagnosed on admission CT 07/21 - Eliquis initiated on last admission, EGD normal on 07/21. continue current dose with superficial mucosal care of nare. Status: Acute (5) Hypertension: Problem comment: - elevated on admission, likely 2/2 CVA - metoprolol initiated for NSTEMI on hospital day 5 Status: Acute (6) Cognitive impairment: Status: Acute (7) Incontinence of urine: Problem comment: - new problem, in addition to bowel incontinence - no acute findings on lumbar MRI - consider outpatient pelvic PT Status: Acute (8) Incontinence of bowel: Status: Acute (9) Decubitus ulcer: Problem comment: stage 1 left heel, stage1-2 on sacrum. wound care requested. Status: Acute
[2022-08-05 15:04] LABS: Troponin I* 0.04 ng/mL (0.01-0.04)
[2022-08-05 15:40] LABS: Chloride* 104 mmol/L (96-114); Sodium* 133 mmol/L (135-149)
[2022-08-05 15:41] LABS: Potassium* 3.9 mmol/L (3.6-5.1)
[2022-08-05 15:42] LABS: Creatinine* 0.9 mg/dL (0.5-1.5); Est. Creatinine Clearance* 46.92; Estimated Glomerular Filt Rate 89 ml/min
[2022-08-05 15:43] LABS: Alanine Aminotransferase* 38 U/L (4-50); Alkaline Phosphatase* 113 U/L (40-150); Aspartate Amino Transferase* 38 U/L (12-35); Bilirubin Total* 0.6 mg/dL (0.1-1.5); Blood Urea Nitrogen* 22 mg/dL (7-30); Carbon Dioxide* 26 mmol/L (20-32); Gamma Glutamyl Transpeptidase* 101 U/L (8-55); Total Protein* 6.7 g/dL (6.0-8.3)
[2022-08-05 15:44] LABS: Calcium* 8.4 mg/dL (8.4-10.6); Glucose* 217 mg/dL (60-115)
[2022-08-05 15:48] LABS: Hematocrit 32.8 % (37.0-53.0); Hemoglobin* 10.8 gm/dL (13.5-17.5); Mean Corpuscular HGB Conc 33 gm/dL (32-36); Mean Corpuscular Hemoglobin 31 pg (26-34); Mean Corpuscular Volume 93 fL (80-100); Platelet Count* 361 K/uL (140-440); Red Blood Count 3.52 m/uL (4.30-5.90); White Blood Count* 17.35 K/uL (4.50-11.00)
[2022-08-05 15:55] LABS: Slide Review Reflex No
[2022-08-05 16:00] LABS: Procalcitonin* 0.54 ng/mL (<0.50)
[2022-08-05 16:05] LABS: C Reactive Protein* 16.2 mg/dL (0.5-1.0)
[2022-08-05 19:18] LABS: Appearance Urine Clear (Clear); Bilirubin Urine Negative (Negative); Blood Urine Negative (Negative); Color Urine Yellow (Yellow); Glucose Urine Negative (Negative); Ketones Urine Negative (Negative); Leukocyte Esterase Urine Negative (Negative); Nitrite Urine Negative (Negative); Protein Urine 1+ (Negative); Specific Gravity Urine 1.015 (1.000-1.030); Urobilinogen Urine 0.2 (0.2-1.0)
[2022-08-05 19:21] LABS: RBC Urine 0-2 (0-2); Squamous Epithelial Cell Urine Few (None-Few); WBC Urine 0-2 (0-5)
--- NOTE | 2022-08-05 19:57 | PC.NURSE ---
Nursing Care Hours: [id number] Pt this shift arrived from ED around 1000, unable to use standing scale d/t weakness. BP soft, stable on room air. Mepilex on L heel changed d/t peeling. No ss of infection. Void brief changed and barrier cream applied to reddened glutes and scrotum. Urine has strong odor. UA sent to lab. Bilat legs mottled. C/o tenderness low left quadrant of abdomen when palpated. Pt reports no BM for two weeks. Abdomen slightly distended. MD aware. Pt had significant nose bleed few days prior to coming to hospital. Two days ago, pt reported coughing up a large blood clot while at [facility] and doctor on duty observed it per pt report. Dried blood noted on R nare. Tx with Vaseline and gauze per MD implemented. Eating and drinking WNL.
[2022-08-05] MEDS: ROSUVASTATIN CALCIUM 10 MG TABLET 20 MG PO (21:30)
[2022-08-05] MEDS: SODIUM CHLORIDE 0.9 % (FLUSH) 10 ML SYRINGE 5 ML IVF (21:31)
[2022-08-05] MEDS: SENNOSIDES/DOCUSATE TABLET 1 TAB PO (21:31)
[2022-08-05] MEDS: APIXABAN 5 MG TABLET PO (21:31)
[2022-08-06] VITALS (8 sets, daily range): BP systolic 108–137; BP diastolic 63–77; PULSE 93–107; RESP 16–20; TEMP 36.8–37.5; O2SAT 96–98
[2022-08-06 06:39] LABS: HCO3 VBG 26 mmol/L (21-28); PCO2 VBG 36 mmHG (40-50); PO2 VBG 46.8 mmHG (25-47); pH VBG 7.469 (7.32-7.43)
[2022-08-06 06:49] LABS: Hemoglobin* 10.1 gm/dL (13.5-17.5); Mean Corpuscular HGB Conc 34 gm/dL (32-36); Mean Corpuscular Hemoglobin 31 pg (26-34); Mean Corpuscular Volume 92 fL (80-100); Platelet Count* 395 K/uL (140-440); Red Blood Count 3.27 m/uL (4.30-5.90); White Blood Count* 18.85 K/uL (4.50-11.00)
[2022-08-06 06:57] LABS: Slide Review Reflex No
[2022-08-06 07:03] LABS: Albumin* 2.9 g/dL (3.3-5.0); Chloride* 107 mmol/L (96-114); Potassium* 3.9 mmol/L (3.6-5.1); Sodium* 134 mmol/L (135-149)
[2022-08-06 07:05] LABS: Bilirubin Total* 0.7 mg/dL (0.1-1.5); Creatinine* 0.9 mg/dL (0.5-1.5); Est. Creatinine Clearance* 46.92; Estimated Glomerular Filt Rate 89 ml/min
[2022-08-06 07:06] LABS: Alkaline Phosphatase* 118 U/L (40-150); Aspartate Amino Transferase* 34 U/L (12-35); Blood Urea Nitrogen* 19 mg/dL (7-30); Carbon Dioxide* 24 mmol/L (20-32); Gamma Glutamyl Transpeptidase* 107 U/L (8-55); Glucose* 162 mg/dL (60-115); Lipase* 46 U/L (23-300); Total Protein* 6.7 g/dL (6.0-8.3)
[2022-08-06 07:07] LABS: Alanine Aminotransferase* 34 U/L (4-50); Calcium* 8.3 mg/dL (8.4-10.6)
[2022-08-06 07:15] LABS: Magnesium* 2.3 mg/dL (1.5-2.6)
[2022-08-06 07:18] LABS: Procalcitonin* 0.52 ng/mL (<0.50)
[2022-08-06 07:24] LABS: C Reactive Protein* 15.7 mg/dL (0.5-1.0)
--- NOTE | 2022-08-06 07:57 | PC.NURSE ---
END OF SHIFT NOTE: PT IS PLEASANT AND COOPERATIVE WITH CARES. ULCER TO LEFT HEEL. MEPILEX APPLIED TO COCCYX; C/D/I. PT DENIES CP, SOB, N/V. PT HAD ONE INCONTINENT SMALL, SOFT BM THIS SHIFT. UNABLE TO OBTAIN UA X2 ATTEMPTS WITH URINAL. VSS ON RA; AFEBRILE.
--- NOTE | 2022-08-06 08:27 | CRLHL7_ITS ---
For Patients: As a result of the 21st Century Cures Act, medical imaging exams and procedure reports are released immediately into your electronic medical record. You may view this report before your referring provider. If you have questions, please contact your health care provider. INDICATION: Infection. TECHNIQUE: CT chest, abdomen and pelvis acquired with 64 cc Isovue 370 IV contrast. COMPARISON: July 21, 2022 FINDINGS: CHEST: Cardiovascular structures: Heart size is normal. Thoracic aorta and main pulmonary artery are normal in caliber. Tiny residual right lower lobe subsegmental PE (series 4/image 52). No new PE. Aortic arch and coronary artery calcifications. Mediastinum and diana: No mass or adenopathy. Lungs and pleura: Biapical scarring/nodularity. Bibasilar tree-in-bud/ground-glass nodules with few residual cavitary lesions, decreased since prior study. No pleural effusions or pneumothoraces. Chest wall and axilla: No mass or adenopathy. Bones: No suspicious bone lesions. T12 compression deformity status post vertebral augmentation. ABDOMEN AND PELVIS: Liver: Unremarkable. Gallbladder and bile ducts: Unremarkable. Pancreas: Unremarkable. Spleen: Unremarkable. Adrenal glands: Unremarkable. Kidneys: Bilateral hydroureteronephrosis without obstructing uropathy. GI tract: Large 5.7 x 7.8 by 5.0 centimeter multiloculated rim enhancing lesion in the Anorectal/sacral region (series 2/image 262). Moderate colonic stool burden. No bowel obstruction. Vascular structures: Moderate aortoiliac arterial calcifications. Lymph nodes: Unremarkable. Miscellaneous: No free air or significant free fluid. Pelvic Organs: Dystrophic prostatic calcifications. Moderately distended bladder with circumferential wall thickening. Bones: Degenerative changes of the osseous structures. IMPRESSION: Large multiloculated rim enhancing lesion in the anal rectal/sacral region. Differential includes necrotic tumor or abscess. Recommend correlation with clinical history and direct visualization. Moderate bilateral hydronephrosis without obstructing uropathy. Associated moderately dilated bladder with circumferential wall thickening. Recommend correlation with urinalysis for urinary tract infection. Re-demonstration of bibasilar tree-in-bud/ground-glass nodules with few residual cavitary lesions, significantly decreased since prior study. Tiny residual right lower lobe subsegmental PE. No new clot burden. Moderate colonic stool burden. Please note that all CT scans at this facility use dose modulation, iterative reconstruction, and/or weight-based dosing when appropriate to reduce radiation dose to as low as reasonably achievable. Dictated by Roberto Blankenship MD @ 08/06/2022 12:25:08 PM (Electronically Signed)
[2022-08-06] MEDS: polyethylene glycoL 3350 17 GM PACK PO (11:14)
[2022-08-06] MEDS: METOPROLOL SUCCINATE (XL) 25 MG TAB PO (11:14)
[2022-08-06] MEDS: APIXABAN 5 MG TABLET PO (11:14)
[2022-08-06] MEDS: FERROUS SULFATE 325 MG TABLET PO (11:15)
[2022-08-06] MEDS: SODIUM CHLORIDE 0.9 % (FLUSH) 10 ML SYRINGE 5 ML IVF ×2 (11:15→20:34)
[2022-08-06] MEDS: ACETAMINOPHEN 325 MG TABLET PO (11:15)
[2022-08-06] MEDS: MULTIVITAMIN/MINERALS 1 TABLET 1 TAB PO (11:15)
--- NOTE | 2022-08-06 13:51 | PM.GSCN ---
History of Present Illness Consult details Date Seen: 08/06/22 Consult date: 08/06/22 Narrative: Patient is a very pleasant 77-year-old male, with recent hospitalization for acute cerebellar stroke, PE and an STEMI who was initiated on Eliquis anticoagulation and discharged to a skilled nursing. He was in the skilled nursing for 2 weeks, but was taken to the emergency department for increasing weakness and confusion. He was also reportedly having frequent nosebleeds. Since being in the hospital his workup has been significant for leukocytosis (18) and CT scan demonstrating a large abscess of the anorectal/sacral region. He does have a decubitus ulcer in that area. He states that he has pain around his rectum any time he is lying flat in bed or sitting in a chair. He has never had pain to this area before. The pain has been going on for the last few days and increasing in intensity. He denies any fevers or chills or drainage to the area. Review of Systems Status of ROS: Reports: 6 or more systems reviewed and unremarkable except as noted in History and below PFSH [facility] Medical History Cerebellar stroke Cervical spinal stenosis Cobalamin deficiency (12/2020) Cognitive impairment Frequent falls History of alcohol abuse History of TIA (transient ischemic attack) and stroke (2012) Incontinence of bowel Incontinence of urine Iron deficiency anemia Left knee pain (11/2020) Leg weakness, bilateral Multiple lacunar infarcts Pneumonia Right knee pain (1970) Surgical History History of cataract extraction History of colectomy (2014) History of repair of left rotator cuff (2008) Status post kyphoplasty Family History Sister Diabetes Other Cancer Social History Narrative: He lives with his in [place]. She has been hospitalized for the last week. Daughter Jannette is POA. Code status is full. 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 Tobacco abuse 1-2 packs per day Does not exercise Highest level of school completed/degree received: 10th grade Smoking Status: Former smoker Do you use any of these nicotine containing products: None Second hand tobacco smoke exposure: Yes How often do you have a drink containing alcohol: monthly or less Alcohol type: beer How many standard drinks containing alcohol do you have on a typical day: 1 or 2 How often do you have six or more drinks on one occasion: Never AUDIT-C Alcohol total score: 1 Non-prescribed substance use: denies use Caffeine: Yes (soda) service: No Meds Home Medications and Allergies Home Medications Medication Instructions Recorded Confirmed Type acetaminophen 500 mg tablet 1,000 mg PO Q6H PRN 05/12/22 08/04/22 History (Tylenol Extra Strength) inulin 2 gram chewable tablet 2 g PO DAILY 07/21/22 08/04/22 History (Fiber Gummies) ejbbwdmd-usrosgkp-tchvl acid 400 1 tab PO DAILY 07/21/22 08/04/22 History mcg-vit K 20 mcg-lycop 300 mcg tablet (Men's Daily Formula) Allergies Allergy/AdvReac Type Severity Reaction Status Date / Time No Known Drug Allergies Allergy Verified 08/06/22 11:17 Exam Narrative: Exam Narrative: General: Alert and oriented, no acute distress. Nontoxic in appearance Respiratory: Equal breath rise bilaterally, maintained on room air CV: Regular rhythm rate Abdomen: Soft, nontender and nondistended Genitourinary: Stage II sacral decubitus ulcer, no surrounding erythema or induration and nontender to palpation. Erythema and induration to perianal tissue posterior midline. Very tender to palpation, no active drainage. Digital rectal exam deferred secondary to patient discomfort. Const: Vital Signs, click to edit/add: Vital Signs - 24 hr 08/05/22 15:00 08/05/22 15:43 08/05/22 15:00 Temperature Pulse Rate [Right Pulse Oximeter] 91 92 Pulse Rate [orthos tatic lying] Pulse Rate [orthos tatic sitting] Pulse Rate [orthos tatic standing] Respiratory Rate 25 H 20 20 Blood Pressure [Le ft Arm] Blood Pressure [Ri ght Arm] 130/82 Blood Pressure [or thostatic lying] Blood Pressure [or thostatic sitting] Blood Pressure [or thostatic standing ] Pulse Oximetry 98 98 Oxygen Delivery Me thod Room Air Room Air 08/05/22 19:00 08/05/22 23:00 08/05/22 23:00 Temperature 98.7 F 99.6 F Pulse Rate [Right Pulse Oximeter] 97 100 100 Pulse Rate [orthos tatic lying] Pulse Rate [orthos tatic sitting] Pulse Rate [orthos tatic standing] Respiratory Rate 18 18 18 Blood Pressure [Le ft Arm] Blood Pressure [Ri ght Arm] 120/61 111/64 Blood Pressure [or thostatic lying] Blood Pressure [or thostatic sitting] Blood Pressure [or thostatic standing ] Pulse Oximetry 98 96 Oxygen Delivery Me thod Room Air Room Air 08/06/22 03:00 08/06/22 06:00 08/06/22 08:27 Temperature 99.2 F Pulse Rate [Right Pulse Oximeter] 100 100 Pulse Rate [orthos tatic lying] 95 Pulse Rate [orthos tatic sitting] 101 H Pulse Rate [orthos tatic standing] 107 H Respiratory Rate 20 16 Blood Pressure [Le ft Arm] 108/67 Blood Pressure [Ri ght Arm] Blood Pressure [or thostatic lying] 133/77 Blood Pressure [or thostatic sitting] 125/73 Blood Pressure [or thostatic standing ] 127/72 Pulse Oximetry 96 96 Oxygen Delivery Ia thod Room Air Room Air 08/06/22 10:00 08/06/22 10:00 Temperature Pulse Rate [Right Pulse Oximeter] 100 Pulse Rate [orthos tatic lying] Pulse Rate [orthos tatic sitting] Pulse Rate [orthos tatic standing] Respiratory Rate Blood Pressure [Le ft Arm] Blood Pressure [Ri ght Arm] Blood Pressure [or thostatic lying] Blood Pressure [or thostatic sitting] Blood Pressure [or thostatic standing ] Pulse Oximetry 97 Oxygen Delivery Ia thod Room Air Results Labs Labs: Abnormal lab results 08/05/22 08/05/22 08/05/22 Range/Units 14:25 15:09 19:00 WBC 17.35 H (4.50-11.00) K/uL RBC 3.52 L (4.30-5.90) m/uL Hgb 10.8 L (13.5-17.5) gm/dL Hct 32.8 L (37.0-53.0) % VBG pH (7.32-7.43) VBG pCO2 (40-50) mmHG Sodium 133 L (135-149) mmol/L Glucose 217 H (60-115) mg/dL Calcium (8.4-10.6) mg/dL Ionized Calcium [place] (1.11-1.30) mmol/L GGT 101 H (8-55) U/L AST 38 H (12-35) U/L C-Reactive Protein 16.2 H (0.5-1.0) mg/dL Albumin 3.0 L (3.3-5.0) g/dL Procalcitonin 0.54 H (<0.50) ng/mL Urine Protein 1+ A (Negative) 08/06/22 08/06/22 08/06/22 Range/Units 06:10 06:10 06:10 WBC 18.85 H (4.50-11.00) K/uL RBC 3.27 L (4.30-5.90) m/uL Hgb 10.1 L (13.5-17.5) gm/dL Hct 30.0 L (37.0-53.0) % VBG pH 7.469 H (7.32-7.43) VBG pCO2 36 L (40-50) mmHG Sodium 134 L (135-149) mmol/L Glucose 162 H (60-115) mg/dL Calcium 8.3 L (8.4-10.6) mg/dL Ionized Calcium [place] 1.10 L (1.11-1.30) mmol/L GGT 107 H (8-55) U/L AST (12-35) U/L C-Reactive Protein 15.7 H (0.5-1.0) mg/dL Albumin 2.9 L (3.3-5.0) g/dL Procalcitonin 0.52 H (<0.50) ng/mL Urine Protein (Negative) Diabetes panel 08/05/22 08/06/22 Range/Units 14:25 06:10 Sodium 133 L 134 L (135-149) mmol/L Potassium 3.9 3.9 (3.6-5.1) mmol/L Chloride 104 107 (96-114) mmol/L Carbon Dioxide 26 24 (20-32) mmol/L BUN 22 19 (7-30) mg/dL Creatinine 0.9 0.9 (0.5-1.5) mg/dL Glucose 217 H 162 H (60-115) mg/dL Calcium 8.4 8.3 L (8.4-10.6) mg/dL AST 38 H 34 (12-35) U/L ALT 38 34 (4-50) U/L Alkaline Phosphatase 113 118 (40-150) U/L Total Protein 6.7 6.7 (6.0-8.3) g/dL Albumin 3.0 L 2.9 L (3.3-5.0) g/dL Calcium panel 08/05/22 08/06/22 08/06/22 Range/Units 14:25 06:10 06:10 Calcium 8.4 8.3 L (8.4-10.6) mg/dL Ionized Calcium [place] 1.10 L (1.11-1.30) mmol/L Albumin 3.0 L 2.9 L (3.3-5.0) g/dL Pituitary panel 08/05/22 08/06/22 Range/Units 14:25 06:10 Sodium 133 L 134 L (135-149) mmol/L Potassium 3.9 3.9 (3.6-5.1) mmol/L Chloride 104 107 (96-114) mmol/L Carbon Dioxide 26 24 (20-32) mmol/L BUN 22 19 (7-30) mg/dL Creatinine 0.9 0.9 (0.5-1.5) mg/dL Glucose 217 H 162 H (60-115) mg/dL Calcium 8.4 8.3 L (8.4-10.6) mg/dL Adrenal panel 08/05/22 08/06/22 Range/Units 14:25 06:10 Sodium 133 L 134 L (135-149) mmol/L Potassium 3.9 3.9 (3.6-5.1) mmol/L Chloride 104 107 (96-114) mmol/L Carbon Dioxide 26 24 (20-32) mmol/L BUN 22 19 (7-30) mg/dL Creatinine 0.9 0.9 (0.5-1.5) mg/dL Glucose 217 H 162 H (60-115) mg/dL Calcium 8.4 8.3 L (8.4-10.6) mg/dL Total Bilirubin 0.6 0.7 (0.1-1.5) mg/dL AST 38 H 34 (12-35) U/L ALT 38 34 (4-50) U/L Alkaline Phosphatase 113 118 (40-150) U/L Total Protein 6.7 6.7 (6.0-8.3) g/dL Albumin 3.0 L 2.9 L (3.3-5.0) g/dL All other labs normal. Imaging Abdomen CT scan report/results: report reviewed and image reviewed Assessment and Plan Assessment and plan (1) Perianal abscess: Status: Acute Plan Patient is a 77-year-old male, who presented to the hospital with increasing weakness. Workup and clinical evaluation has been significant for a large perianal abscess. The imaging was reviewed with the radiologist, with the abscess appearing to be within the ischiorectal space, with no extension above the levator muscles. On exam he does have an area of erythema and induration posterior midline in the perianal space. His labs are significant for leukocytosis (18). I do think this needs to be evaluated in the operating room and drained. He is a higher surgical risk, given his recent history of PE and NSTEMI, however I do not think this infection can be treated with antibiotics alone and I do not think the patient would tolerate drainage at bedside. The hospitalist is following and will optimize the patient for surgery as much as possible. He is currently continued on Eliquis, which I recommend holding at this time. Will have the patient NPO at midnight.
[2022-08-06] MEDS: ERTAPENEM 1 GM in 0.9 % SODIUM CHLORIDE Mini-bag 100 ML IVPB (14:10)
[2022-08-06] MEDS: 0.9 % SODIUM CHLORIDE 250 ml IV (14:11)
--- NOTE | 2022-08-06 17:05 | P.IMPN_ITS ---
Progress Note: A&P Assessment and plan (1) Perianal abscess: Problem details: Ertapenem 1 g started today, Q 24. Hold Eliquis. NPO at midnight. Plan for I and D tomorrow in the OR. Status: Acute (2) ABLA (acute blood loss anemia): Problem details: Epistaxis. I discussed the case with ENT. He suggested placing a half of cotton ball with Vaseline in the right nostril. Removed at night. Restart in the morning. He said he would come up and visit the patient bedside tomorrow with likely follow-up next week in clinic. Trend hemoglobin. Replace as needed. Status: Acute (3) Demand ischemia: Problem details: Troponin is already returning to normal. No chest pain. Following clinically. 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 Reviewed previous imaging from last admission. Continue Eliquis. - followed by PT and OT during stay, return to [facility] this week Status: Acute (5) Pulmonary emboli: Problem details: - diagnosed on admission CT 07/21 - Eliquis initiated on last admission, EGD normal on 07/21. continue current do se with superficial mucosal care of nare. Status: Acute (6) Cognitive impairment: Status: Acute (7) Incontinence of urine: Problem details: On scan today it appears he has a dilated enlarged bladder. Will place a Duncan catheter for his procedure tomorrow and attempt removal shortly thereafter. Status: Acute (8) Depression: Problem details: starting celexa 10mg for depression and anxiety/agitation. Status: Acute Subjective Date Seen: 08/06/22 Interval history: Daily Progress Note - Hospital Medicine Day #: 2 Day 1 of ertapenem 1 gram q 24 CC: ABLA for epistaxis, s/p 3 units RBC - new perirectal abscess identified OVERNIGHT UPDATES FROM STAFF & MED, LAB, IMAGING UPDATES Patient has been with his mood and feeling a little overwhelmed by all of the months events. He has not really had any major clinical change other than no further bleeding from his nostril which is nice. ENT did evaluate that right nostril and had no additional advice. They can see him as an outpatient his hemoglobin is stable. Noting his increased white blood cell count inflammatory markers we ordered sung CT which is described below. I did ask general surgery to evaluate given the findings. Dr. Hernadez did come up and is recommending an I&D tomorrow. We also held his Eliquis, made him NPO and started antibiotics. T-max 99.6? F Blood pressure has been a little soft 108/67 but then 133/77 on follow-up Pulses been in the high 90s Respiratory rate has been 16-20 He is 96% on room air White blood cell count remains elevated this morning at 18,850 Platelets are okay and hemoglobin is stable. No further bleeding from his nose. PH is slightly alkalotic Kidney function and electrolytes are stable. C reactive protein remains elevated and procalcitonin remains elevated CT chest abdomen pelvis today given inflammatory marker elevation and leukocytosis: IMPRESSION: Large multiloculated rim enhancing lesion in the anal rectal/sacral region. Differential includes necrotic tumor or abscess. Recommend correlation with clinical history and direct visualization. Moderate bilateral hydronephrosis without obstructing uropathy. Associated moderately dilated bladder with circumferential wall thickening. Recommend correlation with urinalysis for urinary tract infection. Re-demonstration of bibasilar tree-in-bud/ground-glass nodules with few residual cavitary lesions, significantly decreased since prior study. Tiny residual right lower lobe subsegmental PE. No new clot burden. Moderate colonic stool burden. Review of Systems: See subjective Cardiac: No new chest pain/pressure/palpitations. Respiratory: no new dyspnea. GI: No abdominal bloating Objective: Frustrated, mildly agitated Vitals: see above Lungs: Clear. Cardiac: S1S2. Rectal in sacrum exam reveals a small shallow decubitus ulcer above the gluteal fold with confluent erythema and bogginess around the anus. Disposition/Potential discharge - Likely to return to assisted facility Total time is 35 minutes with greater than 50% spent in counseling and coordination of care. Exam Const: Vital Signs, click to edit/add: Vital Signs - 24 hr 08/05/22 19:00 08/05/22 23:00 08/05/22 23:00 Temperature 98.7 F 99.6 F Pulse Rate [Right Pulse Oximeter] 97 100 100 Pulse Rate [orthos tatic lying] Pulse Rate [orthos tatic sitting] Pulse Rate [orthos tatic standing] Respiratory Rate 18 18 18 Blood Pressure [Le ft Arm] Blood Pressure [Ri ght Arm] 120/61 111/64 Blood Pressure [or thostatic lying] Blood Pressure [or thostatic sitting] Blood Pressure [or thostatic standing ] Pulse Oximetry 98 96 Oxygen Delivery Me thod Room Air Room Air 08/06/22 03:00 08/06/22 06:00 08/06/22 08:27 Temperature 99.2 F Pulse Rate [Right Pulse Oximeter] 100 100 Pulse Rate [orthos tatic lying] 95 Pulse Rate [orthos tatic sitting] 101 H Pulse Rate [orthos tatic standing] 107 H Respiratory Rate 20 16 Blood Pressure [Le ft Arm] 108/67 Blood Pressure [Ri ght Arm] Blood Pressure [or thostatic lying] 133/77 Blood Pressure [or thostatic sitting] 125/73 Blood Pressure [or thostatic standing ] 127/72 Pulse Oximetry 96 96 Oxygen Delivery Wa thod Room Air Room Air 08/06/22 10:00 08/06/22 10:00 Temperature Pulse Rate [Right Pulse Oximeter] 100 Pulse Rate [orthos tatic lying] Pulse Rate [orthos tatic sitting] Pulse Rate [orthos tatic standing] Respiratory Rate Blood Pressure [Le ft Arm] Blood Pressure [Ri ght Arm] Blood Pressure [or thostatic lying] Blood Pressure [or thostatic sitting] Blood Pressure [or thostatic standing ] Pulse Oximetry 97 Oxygen Delivery Me thod Room Air Labs Labs: Laboratory Results - last 24 hr 08/05/22 08/06/22 08/06/22 19:00 06:10 06:10 WBC 18.85 H RBC 3.27 L Hgb 10.1 L Hct 30.0 L MCV 92 MCH 31 MCHC 34 Plt Count 395 VBG pH VBG pCO2 VBG pO2 VBG HCO3 Sodium 134 L Potassium 3.9 Chloride 107 Carbon Dioxide 24 BUN 19 Creatinine 0.9 Estimated Creat Clear 46.92 Estimated GFR 89 Glucose 162 H Calcium 8.3 L Ionized Calcium [place] Magnesium 2.3 Total Bilirubin 0.7 GGT 107 H AST 34 ALT 34 Alkaline Phosphatase 118 C-Reactive Protein 15.7 H Total Protein 6.7 Albumin 2.9 L Lipase 46 Procalcitonin 0.52 H Urine Color Yellow Urine Appearance Clear Urine pH 7.0 Ur Specific [place] 1.015 Urine Protein 1+ A Urine Glucose (UA) Negative Urine Ketones Negative Urine Blood Negative Urine Nitrite Negative Urine Bilirubin Negative Urine Urobilinogen 0.2 Ur Leukocyte Esterase Negative Urine RBC 0-2 Urine WBC 0-2 Ur Squamous Epith Cells Few Urine Bacteria None 08/06/22 06:10 WBC RBC Hgb Hct MCV MCH MCHC Plt Count VBG pH 7.469 H VBG pCO2 36 L VBG pO2 46.8 VBG HCO3 26 Sodium Potassium Chloride Carbon Dioxide BUN Creatinine Estimated Creat Clear Estimated GFR Glucose Calcium Ionized Calcium [place] 1.10 L Magnesium Total Bilirubin GGT AST ALT Alkaline Phosphatase C-Reactive Protein Total Protein Albumin Lipase Procalcitonin Urine Color Urine Appearance Urine pH Ur Specific [place] Urine Protein Urine Glucose (UA) Urine Ketones Urine Blood Urine Nitrite Urine Bilirubin Urine Urobilinogen Ur Leukocyte Esterase Urine RBC Urine WBC Ur Squamous Epith Cells Urine Bacteria
[2022-08-06] MEDS: LACTATED RINGERS 1000 ML 1,000 ML 75 ML IV (18:26)
--- NOTE | 2022-08-06 19:52 | PC.NURSE ---
Pt up with 4-wheel walker and gait belt. Mepilex to coccyx, perineum red and tender. Off loading to relieve pain as well as Tylenol per MAR with relief. CT of perineum showed infection, Antibiotic started and Dr. Hernadez consulted. Surgery 08/07. Duncan placed for urinal incontinence and retention.
[2022-08-06] MEDS: ROSUVASTATIN CALCIUM 10 MG TABLET 20 MG PO (20:33)
[2022-08-06] MEDS: SENNOSIDES/DOCUSATE TABLET 1 TAB PO (20:33)
[2022-08-07] VITALS (30 sets, daily range): BP systolic 104–149; BP diastolic 66–95; PULSE 66–107; RESP 16–20; TEMP 36–37.6; O2SAT 94–99
[2022-08-07] MEDS: LACTATED RINGERS 1000 ML 1,000 ML 75 ML IV ×2 (06:32→18:17)
--- NOTE | 2022-08-07 06:45 | PC.NURSE ---
Pt is alert and oriented x 3, pleasant and cooperative. Pt reports pain in right leg and groin, Pain managed with scheduled pain meds. Pt has ulcer on left heel, Mepilex applied C/D/I. Pt denies any N/V, chest pain or SOB. Pt is up A1 with walker and gait belt. Mepilex to coccyx C/D/I, perineum tender and red. Pt has a beltran catheter. On room air and afebrile. Pt is NPO. ???
[2022-08-07 08:08] LABS: Hematocrit 22.2 % (37.0-53.0); Mean Corpuscular HGB Conc 34 gm/dL (32-36); Mean Corpuscular Hemoglobin 32 pg (26-34); Mean Corpuscular Volume 93 fL (80-100); Platelet Count* 441 K/uL (140-440); Red Blood Count 2.38 m/uL (4.30-5.90); White Blood Count* 20.65 K/uL (4.50-11.00)
[2022-08-07 08:10] LABS: Hemoglobin* 7.5 gm/dL (13.5-17.5)
[2022-08-07 08:11] LABS: Slide Review Reflex No
[2022-08-07 08:19] LABS: HCO3 VBG 25 mmol/L (21-28); PCO2 VBG 32 mmHG (40-50); PO2 VBG 68.2 mmHG (25-47); pH VBG 7.508 (7.32-7.43)
[2022-08-07 08:29] LABS: INR 1.56 (0.91-1.10); Prothrombin Time 19.6 Seconds
[2022-08-07 08:42] LABS: Chloride* 108 mmol/L (96-114); Sodium* 136 mmol/L (135-149)
[2022-08-07 08:45] LABS: Creatinine* 0.9 mg/dL (0.5-1.5); Est. Creatinine Clearance* 52.25; Estimated Glomerular Filt Rate 89 ml/min
[2022-08-07 08:46] LABS: Blood Urea Nitrogen* 16 mg/dL (7-30); Calcium* 8.4 mg/dL (8.4-10.6); Carbon Dioxide* 23 mmol/L (20-32); Glucose* 131 mg/dL (60-115)
[2022-08-07 08:56] LABS: Troponin I* 0.05 ng/mL (0.01-0.04)
[2022-08-07 09:01] LABS: Procalcitonin* 0.55 ng/mL (<0.50)
[2022-08-07 09:14] LABS: C Reactive Protein* > 9.0 mg/dL (0.5-1.0)
--- NOTE | 2022-08-07 09:53 | REH.PT ---
PT/OT held d/t pt undergoing surgery today.
--- NOTE | 2022-08-07 11:54 | PC.NURSE ---
shift note: pt to surg @ 1145 via bed. 20 mins of PRB's remained prior to surg. Ertapenem sent with pt to surgery
[2022-08-07] MEDS: ERTAPENEM 1 GM in 0.9 % SODIUM CHLORIDE Mini-bag 100 ML IVPB (12:00)
--- NOTE | 2022-08-07 12:08 | W.ANESCHARGE ---
Anesthesia Charges Start Date/Time Anesthesia Start Date: 08/07/22 Anesthesia Start Time: 11:48 Stop Date/Time Anesthesia Stop Date: 08/07/22 Anesthesia Stop Time: 12:41 Summary Emergency: No Extremes of Age: Over 71-CPT [id number]
--- NOTE | 2022-08-07 12:32 | PM.GSPRC ---
Operative Note Date of procedure: 08/07/22 Pre-op diagnosis: Perianal abscess Post-op diagnosis: Same Type of Procedure: Exam under anesthesia, incision and drainage of perianal abscess Procedure Description: After discussing the risks and benefits of the procedure, the patient signed informed consent.? The operative site was marked and the patient was brought to the operating room and placed on the operating table in supine position.? The patient was then transferred to the Operating Room table, placed in the prone jackknife position with appropriate bumps and padding. Care was taken to ensure the genitalia and breasts were properly positioned on the hip and chest rolls, respectively. The shoulders and arms were positioned with care to protect the brachial plexus. The buttocks were taped laterally. A sterile prep and drape was done in the usual fashion. A formal timeout for patient safety was performed in accordance with hospital protocol, thereby correctly matching this patient with their diagnosis and intended procedure. External examination, digital rectal examination, and anoscopic examination were all done and revealed current the min induration posterior right and left lateral. Digital rectal exam also revealed firmness on the posterior aspect of the rectum. No purulence was identified within the rectal canal on anoscopic examination. An 11 scalpel was used to make a cruciate incision approximately 2 cm away from the anal verge on the right buttock. Mosquito was used to open up the underlying subcutaneous tissue into the abscess pocket. A significant amount of purulent material was expelled. The incision was opened further with electrocautery. The underlying abscess cavity was then investigated through blunt dissection. Evidence of multiple loculated cavities extending superior and around the posterior wall of the rectum. The abscess also extended across midline onto the left buttock. An additional cruciate incision was made on the left buttock. The cavity was irrigated with a mixture of saline and hydrogen peroxide. An anoscopic examination was made during injection, with no fistula identified. A Amber drain was placed through both incisions and secured in place to ensure continued drainage. The patient tolerated procedure well. There were no apparent complications. Instrument, sponge, and needle counts were correct at the end of the case. Indications: Patient is a 77-year-old male was admitted for increasing weakness. Workup was obtained with evidence of a large perianal abscess. Risks and benefits of operative intervention were discussed at length with the patient. Risks included, but were not limited to: Bleeding, infection, possible need for additional procedures and risk of injury to surrounding structures. All questions and concerns were addressed with patient agreeing to proceed. Findings: Large perianal abscess. Anesthesia: GETA Surgeon: Rosmery Hernadez MD Estimated blood loss (mL): 5 Additional Specimen Information: Culture swab sent for specmen. Condition: stable Disposition: floor
--- NOTE | 2022-08-07 12:44 | W.ANESCHARGE ---
Anesthesia Charges Start Date/Time Anesthesia Start Date: 08/07/22 Anesthesia Start Time: 11:48 Stop Date/Time Anesthesia Stop Date: 08/07/22 Anesthesia Stop Time: 12:41 Summary Emergency: No Extremes of Age: Over 71-CPT [id number]
--- NOTE | 2022-08-07 16:09 | PM.IMPN1 ---
Progress Note: A&P Assessment and plan (1) Perianal abscess: Problem details: I/D 08/07/2022. Blood cultures positive. Continue IV ertapenem Status: Acute (2) ABLA (acute blood loss anemia): Problem details: Epistaxis. ENT did stop by and give recommendations. Trend hemoglobin. Replace as needed. Status: Acute (3) Demand ischemia: Problem details: Troponin is pending. No chest pain. 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 Reviewed previous imaging from last admission. Continue Eliquis. - followed by PT and OT during stay, return to [facility] this week Status: Acute (5) Pulmonary emboli: Problem details: - diagnosed on admission CT 07/21 - Eliquis initiated on last admission, EGD normal on 07/21. continue current dose with superficial mucosal care of nare. Status: Acute (6) Incontinence of urine: Problem details: On scan today it appears he has a dilated enlarged bladder. Will place a Duncan catheter for his procedure tomorrow and attempt removal shortly thereafter. Status: Acute (7) Depression: Problem details: starting celexa 10mg for depression and anxiety/agitation. Status: Acute (8) Cognitive impairment: Status: Acute Subjective Date Seen: 08/07/22 Interval history: Daily Progress Note - Hospital Medicine Day #: 3 Day 2 of ertapenem 1 gram q 24 CC: ABLA for epistaxis, s/p 3 units RBC - new perirectal abscess identified, hemoglobin dropped again overnight. Transfusing again today. OVERNIGHT UPDATES FROM STAFF & MED, LAB, IMAGING UPDATES Patient seems a little bit more upbeat today. No further bleeding but his hemoglobin was back down to 7.5 this morning. I discussed with his surgeon findings at her I and D of his perirectal abscess. She has a Amber drain placed an fluctuant material was removed. Cultures are pending. That his blood cultures are growing Gram-negative rods. He is hemodynamically stable. He is afebrile. He is on room air. Blood pressure 130/72. Pulse 86. Respiratory 18. Temp 96.8?. 99% on room air. CBC reflects an elevated uptrending white blood cell count 20.65 today Hemoglobin is down to 7.5 Platelets are again reactive at 4:41 a.m. PH is 7.5 this morning. Electrolytes and renal function remain normal. CRP is elevated as is the procalcitonin. Troponin is just minimally bumped. Both blood cultures are growing gram negative rods Review of Systems: See subjective Cardiac: No new chest pain/pressure/palpitations. Respiratory: no new dyspnea. GI: No abdominal bloating msk: heel pain from dec ulcer Objective: more upbeat today; not sure he truly understands what is going on. Vitals: see above Lungs: Clear. Cardiac: S1S2. Rectal exam unchanged Disposition/Potential discharge - Likely to return to [facility] facility Total time is 35 minutes with greater than 50% spent in counseling and coordination of care. Exam Const: Vital Signs, click to edit/add: Vital Signs - 24 hr 08/06/22 19:00 08/06/22 23:00 08/06/22 23:00 Temperature 98.2 F Pulse Rate Pulse Rate [Right Pulse Oximeter] 98 98 Pulse Rate [orthos tatic lying] Pulse Rate [orthos tatic sitting] Pulse Rate [orthos tatic standing] Respiratory Rate 18 20 20 Blood Pressure Blood Pressure [Le ft Arm] Blood Pressure [Ri ght Arm] 134/76 Blood Pressure [or thostatic lying] Blood Pressure [or thostatic sitting] Blood Pressure [or thostatic standing ] Pulse Oximetry 97 98 Oxygen Delivery Me thod Room Air Room Air 08/06/22 23:00 08/07/22 03:00 08/07/22 05:51 Temperature 99.5 F 99.6 F Pulse Rate Pulse Rate [Right Pulse Oximeter] 93 98 Pulse Rate [orthos tatic lying] 95 Pulse Rate [orthos tatic sitting] 99 Pulse Rate [orthos tatic standing] 107 H Respiratory Rate 20 20 Blood Pressure Blood Pressure [Le ft Arm] 122/63 122/89 Blood Pressure [Ri ght Arm] Blood Pressure [or thostatic lying] 124/78 Blood Pressure [or thostatic sitting] 104/73 Blood Pressure [or thostatic standing ] 124/73 Pulse Oximetry 98 97 Oxygen Delivery Me thod Room Air Room Air 08/07/22 10:12 08/07/22 10:28 08/07/22 07:00 Temperature 97.6 F 97.6 F Pulse Rate 89 90 Pulse Rate [Right Pulse Oximeter] Pulse Rate [orthos tatic lying] Pulse Rate [orthos tatic sitting] Pulse Rate [orthos tatic standing] Respiratory Rate 16 18 16 Blood Pressure 125/83 131/71 Blood Pressure [Le ft Arm] Blood Pressure [Ri ght Arm] Blood Pressure [or thostatic lying] Blood Pressure [or thostatic sitting] Blood Pressure [or thostatic standing ] Pulse Oximetry 98 98 98 Oxygen Delivery [place] thod Room Air 08/07/22 11:26 08/07/22 07:00 08/07/22 11:00 Temperature 97.5 F L 97.7 F 97.5 F L Pulse Rate 89 Pulse Rate [Right Pulse Oximeter] 90 87 Pulse Rate [orthos tatic lying] Pulse Rate [orthos tatic sitting] Pulse Rate [orthos tatic standing] Respiratory Rate 18 18 18 Blood Pressure 127/71 Blood Pressure [Le ft Arm] 128/78 127/71 Blood Pressure [Ri ght Arm] Blood Pressure [or thostatic lying] Blood Pressure [or thostatic sitting] Blood Pressure [or thostatic standing ] Pulse Oximetry 97 98 Oxygen Delivery Ny thod Room Air Room Air 08/07/22 07:00 08/07/22 12:40 08/07/22 12:45 Temperature 99.1 F Pulse Rate 84 83 Pulse Rate [Right Pulse Oximeter] 87 Pulse Rate [orthos tatic lying] Pulse Rate [orthos tatic sitting] Pulse Rate [orthos tatic standing] Respiratory Rate 18 16 16 Blood Pressure 126/71 132/69 Blood Pressure [Le ft Arm] Blood Pressure [Ri ght Arm] Blood Pressure [or thostatic lying] Blood Pressure [or thostatic sitting] Blood Pressure [or thostatic standing ] Pulse Oximetry 98 98 Oxygen Delivery Ny thod Room Air Room Air 08/07/22 12:50 08/07/22 12:55 08/07/22 13:00 Temperature 99.0 F Pulse Rate 86 84 84 Pulse Rate [Right Pulse Oximeter] Pulse Rate [orthos tatic lying] Pulse Rate [orthos tatic sitting] Pulse Rate [orthos tatic standing] Respiratory Rate 16 16 16 Blood Pressure 133/72 137/77 147/80 H Blood Pressure [Le ft Arm] Blood Pressure [Ri ght Arm] Blood Pressure [or thostatic lying] Blood Pressure [or thostatic sitting] Blood Pressure [or thostatic standing ] Pulse Oximetry 97 97 97 Oxygen Delivery Ny thod Room Air Room Air Room Air 08/07/22 13:05 08/07/22 13:10 08/07/22 13:44 Temperature 97.4 F L Pulse Rate 86 86 87 Pulse Rate [Right Pulse Oximeter] Pulse Rate [orthos tatic lying] Pulse Rate [orthos tatic sitting] Pulse Rate [orthos tatic standing] Respiratory Rate 16 16 16 Blood Pressure 149/82 H 146/83 H 140/74 H Blood Pressure [Le ft Arm] Blood Pressure [Ri ght Arm] Blood Pressure [or thostatic lying] Blood Pressure [or thostatic sitting] Blood Pressure [or thostatic standing ] Pulse Oximetry 99 98 [facility] 08/07/22 14:00 08/07/22 14:00 08/07/22 14:45 Temperature 96.9 F L 96.9 F L 96.9 F L Pulse Rate 86 86 88 Pulse Rate [Right Pulse Oximeter] Pulse Rate [orthos tatic lying] Pulse Rate [orthos tatic sitting] Pulse Rate [orthos tatic standing] Respiratory Rate 16 16 16 Blood Pressure 134/70 134/70 144/83 H Blood Pressure [Le ft Arm] Blood Pressure [Ri ght Arm] Blood Pressure [or thostatic lying] Blood Pressure [or thostatic sitting] Blood Pressure [or thostatic standing ] Pulse Oximetry 99 Oxygen Delivery Ny thod 08/07/22 15:33 Temperature 96.8 F L Pulse Rate 86 Pulse Rate [Right Pulse Oximeter] Pulse Rate [orthos tatic lying] Pulse Rate [orthos tatic sitting] Pulse Rate [orthos tatic standing] Respiratory Rate 18 Blood Pressure 130/72 Blood Pressure [Le ft Arm] Blood Pressure [Ri ght Arm] Blood Pressure [or thostatic lying] Blood Pressure [or thostatic sitting] Blood Pressure [or thostatic standing ] Pulse Oximetry 99 Oxygen Delivery Ny thod Labs Labs: Laboratory Results - last 24 hr 08/04/22 08/07/22 08/07/22 21:05 07:45 07:45 WBC 20.65 H RBC 2.38 L Hgb 7.5 L* Hct 22.2 L MCV 93 MCH 32 MCHC 34 Plt Count 441 H INR 1.56 H VBG pH VBG pCO2 VBG pO2 VBG HCO3 Sodium Potassium Chloride Carbon Dioxide BUN Creatinine Estimated Creat Clear Estimated GFR Glucose Calcium Troponin I C-Reactive Protein Procalcitonin Blood Type A Negative Antibody Screen NEGATIVE Crossmatch ([facility]) See Detail 08/07/22 08/07/22 07:45 07:45 WBC RBC Hgb Hct MCV MCH MCHC Plt Count INR VBG pH 7.508 H VBG pCO2 32 L VBG pO2 68.2 H VBG HCO3 25 Sodium 136 Potassium 4.0 Chloride 108 Carbon Dioxide 23 BUN 16 Creatinine 0.9 Estimated Creat Clear 52.25 Estimated GFR 89 Glucose 131 H Calcium 8.4 Troponin I 0.05 H C-Reactive Protein > 9.0 H Procalcitonin 0.55 H Blood Type Antibody Screen Crossmatch ([facility])
--- NOTE | 2022-08-07 19:50 | PC.NURSE ---
shift note: pt to surgery @ 1200 and returned @ 1330 via bed. pt denies pain. pt has pinrose drain to buttock that is draining serosang. ABD pad changed x1 and brief to cover. beltran patent and intact. LS clr. vss stable post op. Pt afeb. IV removed to rt FA due to infiltration. Lt FA with new # 22 SL. Pt tolerating regular diet. pt states last BM approx 2 wks ago. BS active. pt denies nausea. 2 units PRB's given w/o s/e.
--- NOTE | 2022-08-07 20:01 | PC.NURSE ---
tar post VSS 30 mins after infusion on 2nd unit @ 1600 not 1959.
[2022-08-07] MEDS: ROSUVASTATIN CALCIUM 10 MG TABLET 20 MG PO (21:29)
[2022-08-07] MEDS: SENNOSIDES/DOCUSATE TABLET 1 TAB PO (21:30)
[2022-08-07] MEDS: APIXABAN 5 MG TABLET PO (21:30)
--- NOTE | 2022-08-07 22:53 | PC.NURSE ---
Pt with stable VS. T&R as needed. Buttuck wound drsg changed x1. Had minimal amt of serosanguinious fdluid. Pt states no pain. beltran draining dk mony urine.
[2022-08-08] VITALS (7 sets, daily range): BP systolic 117–149; BP diastolic 65–87; PULSE 67–89; RESP 16–18; TEMP 36.3–36.7; O2SAT 94–99
--- NOTE | 2022-08-08 07:06 | PC.NURSE ---
VSS on RA. Patient is alert and oriented with confusion. Denies pain on assessment. IV fluid infusing. Call light within reach.
[2022-08-08] MEDS: LACTATED RINGERS 1000 ML 1,000 ML 75 ML IV ×2 (07:41→21:54)
[2022-08-08 08:18] LABS: HCO3 VBG 26 mmol/L (21-28); Ionized Calcium* 1.12 mmol/L (1.11-1.30); PCO2 VBG 35 mmHG (40-50); PO2 VBG 94.8 mmHG (25-47); pH VBG 7.484 (7.32-7.43)
[2022-08-08 08:22] LABS: Hematocrit 32.8 % (37.0-53.0); Hemoglobin* 11.1 gm/dL (13.5-17.5); Mean Corpuscular HGB Conc 34 gm/dL (32-36); Mean Corpuscular Hemoglobin 31 pg (26-34); Mean Corpuscular Volume 91 fL (80-100); Platelet Count* 335 K/uL (140-440); Red Blood Count 3.61 m/uL (4.30-5.90); White Blood Count* 11.32 K/uL (4.50-11.00)
[2022-08-08 08:23] LABS: Slide Review Reflex No
[2022-08-08] MEDS: FERROUS SULFATE 325 MG TABLET PO (08:36)
[2022-08-08 08:41] LABS: Albumin* 2.2 g/dL (3.3-5.0); Chloride* 110 mmol/L (96-114)
[2022-08-08 08:42] LABS: Potassium* 3.9 mmol/L (3.6-5.1); Sodium* 136 mmol/L (135-149)
[2022-08-08 08:44] LABS: Alkaline Phosphatase* 116 U/L (40-150); Aspartate Amino Transferase* 46 U/L (12-35); Bilirubin Total* 0.4 mg/dL (0.1-1.5); Blood Urea Nitrogen* 15 mg/dL (7-30); Carbon Dioxide* 24 mmol/L (20-32); Creatinine* 0.8 mg/dL (0.5-1.5); Estimated Glomerular Filt Rate 92 ml/min; Glucose* 122 mg/dL (60-115); Lipase* 62 U/L (23-300); Total Protein* 5.3 g/dL (6.0-8.3)
[2022-08-08 08:45] LABS: Alanine Aminotransferase* 32 U/L (4-50)
[2022-08-08 09:02] LABS: Procalcitonin* 0.57 ng/mL (<0.50)
[2022-08-08] MEDS: CITALOPRAM HYDROBROMIDE 20 MG TABLET 10 MG PO (10:34)
[2022-08-08] MEDS: APIXABAN 5 MG TABLET PO ×2 (10:34→20:46)
[2022-08-08] MEDS: SENNOSIDES/DOCUSATE TABLET 1 TAB PO ×2 (10:35→20:46)
[2022-08-08] MEDS: SODIUM CHLORIDE 0.9 % (FLUSH) 10 ML SYRINGE 5 ML IVF ×2 (10:35→20:46)
[2022-08-08] MEDS: METOPROLOL SUCCINATE (XL) 25 MG TAB PO (10:35)
[2022-08-08] MEDS: MULTIVITAMIN/MINERALS 1 TABLET 1 TAB PO (10:35)
--- NOTE | 2022-08-08 11:11 | P.GSPN_ITS ---
Subjective Subjective Date Seen: 08/08/22 Interval history: Patient is doing wonderful this morning. Denies any pain. Does have the drain still in place and is having continued drainage. Tolerating a regular diet. No fevers overnight. No acute concerns. Exam Narrative: Exam Narrative: Gen: alert and oriented, no acute distress : normal external male genitalia. Amber drain in palce posterior midline. Surrounding tissue with blanchable erythema, no significant induration and non tender to palpation. Sacral decubitus ulcer with no significant erythema or induration. Const: Vital Signs, click to edit/add: Vital Signs - 24 hr 08/07/22 11:26 08/07/22 12:40 08/07/22 12:45 Temperature 97.5 F L 99.1 F Pulse Rate 89 84 83 Pulse Rate [Right Pulse Oximeter] Pulse Rate [orthos tatic standing] Respiratory Rate 18 16 16 Blood Pressure 127/71 126/71 132/69 Blood Pressure [Le ft Arm] Blood Pressure [or thostatic lying] Pulse Oximetry 98 98 [facility] Room [facility] 08/07/22 12:50 08/07/22 12:55 08/07/22 13:00 Temperature 99.0 F Pulse Rate 86 84 84 Pulse Rate [Right Pulse Oximeter] Pulse Rate [orthos tatic standing] Respiratory Rate 16 16 16 Blood Pressure 133/72 137/77 147/80 H Blood Pressure [Le ft Arm] Blood Pressure [or thostatic lying] Pulse Oximetry 97 97 97 [facility] Room Air Room Air 08/07/22 13:05 08/07/22 13:10 08/07/22 13:44 Temperature 97.4 F L Pulse Rate 86 86 87 Pulse Rate [Right Pulse Oximeter] Pulse Rate [orthos tatic standing] Respiratory Rate 16 16 16 Blood Pressure 149/82 H 146/83 H 140/74 H Blood Pressure [Le ft Arm] Blood Pressure [or thostatic lying] Pulse Oximetry 99 98 [facility] Room Air 08/07/22 14:00 08/07/22 14:00 08/07/22 14:45 Temperature 96.9 F L 96.9 F L 96.9 F L Pulse Rate 86 86 88 Pulse Rate [Right Pulse Oximeter] Pulse Rate [orthos tatic standing] Respiratory Rate 16 16 16 Blood Pressure 134/70 134/70 144/83 H Blood Pressure [Le ft Arm] Blood Pressure [or thostatic lying] Pulse Oximetry 99 Oxygen Delivery Me thod 08/07/22 15:33 08/07/22 15:00 08/07/22 13:30 Temperature 96.8 F L 96.8 F L Pulse Rate 86 85 Pulse Rate [Right Pulse Oximeter] Pulse Rate [orthos tatic standing] Respiratory Rate 18 18 16 Blood Pressure 130/72 Blood Pressure [Le ft Arm] 140/72 H Blood Pressure [or thostatic lying] Pulse Oximetry 99 99 Oxygen Delivery Me thod Room Air Room Air 08/07/22 13:30 08/07/22 15:00 08/07/22 15:00 Temperature 96.8 F L 96.9 F L Pulse Rate Pulse Rate [Right Pulse Oximeter] 85 88 88 Pulse Rate [orthos tatic standing] Respiratory Rate 16 16 16 Blood Pressure Blood Pressure [Le ft Arm] 140/72 H 130/72 Blood Pressure [or thostatic lying] Pulse Oximetry 99 99 Oxygen Delivery Me thod Room Air Room Air 08/07/22 13:46 08/07/22 14:00 08/07/22 14:15 Temperature 96.9 F L 96.8 F L 96.8 F L Pulse Rate Pulse Rate [Right Pulse Oximeter] 87 86 88 Pulse Rate [orthos tatic standing] Respiratory Rate 16 16 18 Blood Pressure Blood Pressure [Le ft Arm] 139/75 134/70 138/77 Blood Pressure [or thostatic lying] Pulse Oximetry 99 99 99 Oxygen Delivery Me thod Room Air Room Air Room Air 08/07/22 14:30 08/07/22 14:45 08/07/22 15:30 Temperature 96.8 F L 96.8 F L 96.8 F L Pulse Rate Pulse Rate [Right Pulse Oximeter] 87 89 88 Pulse Rate [orthos tatic standing] Respiratory Rate 18 18 18 Blood Pressure Blood Pressure [Le ft Arm] 144/81 H 146/95 H 130/72 Blood Pressure [or thostatic lying] Pulse Oximetry 99 99 99 Oxygen Delivery Me thod Room Air Room Air Room Air 08/07/22 16:00 08/07/22 17:00 08/07/22 18:00 Temperature 96.8 F L 96.8 F L 96.8 F L Pulse Rate Pulse Rate [Right Pulse Oximeter] 87 86 84 Pulse Rate [orthos tatic standing] Respiratory Rate 18 18 18 Blood Pressure Blood Pressure [Le ft Arm] 136/70 137/73 142/74 H Blood Pressure [or thostatic lying] Pulse Oximetry 99 99 99 Oxygen Delivery Me thod Room Air Room Air Room Air 08/07/22 19:00 08/07/22 19:59 08/07/22 23:00 Temperature 97.6 F 96.9 F L Pulse Rate 87 Pulse Rate [Right Pulse Oximeter] 91 91 Pulse Rate [orthos tatic standing] Respiratory Rate 18 18 18 Blood Pressure 136/70 Blood Pressure [Le ft Arm] 119/74 Blood Pressure [or thostatic lying] Pulse Oximetry 97 99 Oxygen Delivery Me thod Room Air 08/07/22 23:00 08/07/22 23:00 08/08/22 03:00 Temperature 97.8 F 97.3 F L Pulse Rate Pulse Rate [Right Pulse Oximeter] 66 67 Pulse Rate [orthos tatic standing] Respiratory Rate 18 16 16 Blood Pressure Blood Pressure [Le ft Arm] 119/66 117/65 Blood Pressure [or thostatic lying] Pulse Oximetry 99 94 94 Oxygen Delivery Me thod Room Air Room Air Room Air 08/08/22 06:00 Temperature Pulse Rate Pulse Rate [Right Pulse Oximeter] Pulse Rate [orthos tatic standing] 89 Respiratory Rate Blood Pressure Blood Pressure [Le ft Arm] Blood Pressure [or thostatic lying] 118/73 Pulse Oximetry Oxygen Delivery Me thod Progress Note: A&P Assessment and plan (1) Perianal abscess: Status: Acute Assessment and Plan: Patient is POD1 I&D ischiorectal abscess drainage. Afebrile overnight, vitals stable and WBC trending down (20 -->11). Agree with continuing IV antibiotics while inpatient and transitioning to orals to complete a course. Will leave drain in place at this time, possible removal tomorrow.
[2022-08-08] MEDS: ERTAPENEM 1 GM in 0.9 % SODIUM CHLORIDE Mini-bag 100 ML IVPB (13:25)
--- NOTE | 2022-08-08 15:01 | PM.IMPN1 ---
Progress Note: A&P Assessment and plan (1) Perianal abscess: Problem details: I/D 08/07/2022. Blood cultures positive. Continue IV ertapenem Status: Acute (2) Demand ischemia: Problem details: Troponin is pending. No chest pain. Status: Acute (3) ABLA (acute blood loss anemia): Problem details: Epistaxis. ENT did stop by and give recommendations. Trend hemoglobin. Replace as needed. Status: Acute (4) Pulmonary emboli: Problem details: - diagnosed on admission CT 07/21 - Eliquis initiated on last admission, EGD normal on 07/21. continue current dose with superficial mucosal care of nare. Status: Acute (5) Depression: Problem details: starting celexa 10mg for depression and anxiety/agitation. Status: Acute (6) Cognitive impairment: Status: Acute (7) Incontinence of urine: Problem details: On scan today it appears he has a dilated enlarged bladder. Will place a Duncan catheter for his procedure tomorrow and attempt removal shortly thereafter. Status: Acute Subjective Date Seen: 08/08/22 Interval history: Daily Progress Note - Hospital Medicine Day #: 4 Day 3 of ertapenem 1 gram q 24 CC: ABLA for epistaxis, s/p 5 units RBC -perirectal abscess. s/p I/D 08/07/22. gram neg bacteremia. OVERNIGHT UPDATES FROM STAFF & MED, LAB, IMAGING UPDATES Ryder has had a stable night. He is still getting some purulent drainage from his I and D. no new fevers. Feels and looks upbeat. Afebrile Stable normal blood pressure 94% on room air No respiratory distress or work of breathing Heart rate 60s to 80s Weight 26.6 kilos Hemoglobin is up to 11.1 White blood cell count is down from 20.6-11.3 Platelets 335 PH is stable Electrolytes and renal function normal Both blood cultures are growing gram negative rods as is his wound culture Review of Systems: See subjective Cardiac: No new chest pain/pressure/palpitations. Respiratory: no new dyspnea. GI: No abdominal bloating msk: heel pain from dec ulcer Objective: Upbeat today. Feeling positive. Thankful for care. Vitals: see above Lungs: Clear. Cardiac: S1S2. Deferred rectal exam Disposition/Potential discharge - Likely to return to [facility] facility Total time is 35 minutes with greater than 50% spent in counseling and coordination of care. Exam Const: Vital Signs, click to edit/add: Vital Signs - 24 hr 08/07/22 15:33 08/07/22 15:30 08/07/22 16:00 Temperature 96.8 F L 96.8 F L 96.8 F L Pulse Rate 86 Pulse Rate [Right Pulse Oximeter] 88 87 Pulse Rate [orthos tatic standing] Respiratory Rate 18 18 18 Blood Pressure 130/72 Blood Pressure [Le ft Arm] 130/72 136/70 Blood Pressure [or thostatic lying] Pulse Oximetry 99 99 99 Oxygen Delivery Me thod Room Air Room Air 08/07/22 17:00 08/07/22 18:00 08/07/22 19:00 Temperature 96.8 F L 96.8 F L 97.6 F Pulse Rate Pulse Rate [Right Pulse Oximeter] 86 84 91 Pulse Rate [orthos tatic standing] Respiratory Rate 18 18 18 Blood Pressure Blood Pressure [Le ft Arm] 137/73 142/74 H 119/74 Blood Pressure [or thostatic lying] Pulse Oximetry 99 99 97 Oxygen Delivery Me thod Room Air Room Air Room Air 08/07/22 19:59 08/07/22 23:00 08/07/22 23:00 Temperature 96.9 F L Pulse Rate 87 Pulse Rate [Right Pulse Oximeter] 91 Pulse Rate [orthos tatic standing] Respiratory Rate 18 18 18 Blood Pressure 136/70 Blood Pressure [Le ft Arm] Blood Pressure [or thostatic lying] Pulse Oximetry 99 99 Oxygen Delivery Me thod Room Air 08/07/22 23:00 08/08/22 03:00 08/08/22 06:00 Temperature 97.8 F 97.3 F L Pulse Rate Pulse Rate [Right Pulse Oximeter] 66 67 Pulse Rate [orthos tatic standing] 89 Respiratory Rate 16 16 Blood Pressure Blood Pressure [Le ft Arm] 119/66 117/65 Blood Pressure [or thostatic lying] 118/73 Pulse Oximetry 94 94 Oxygen Delivery Me thod Room Air Room Air Labs Labs: Laboratory Results - last 24 hr 08/04/22 08/08/22 08/08/22 21:05 08:06 08:06 WBC 11.32 H RBC 3.61 L Hgb 11.1 L Hct 32.8 L MCV 91 MCH 31 MCHC 34 Plt Count 335 VBG pH VBG pCO2 VBG pO2 VBG HCO3 Sodium 136 Potassium 3.9 Chloride 110 Carbon Dioxide 24 BUN 15 Creatinine 0.8 Estimated Creat Clear 23.70 Estimated GFR 92 Glucose 122 H Calcium 8.0 L Ionized Calcium [place] Total Bilirubin 0.4 AST 46 H ALT 32 Alkaline Phosphatase 116 Total Protein 5.3 L Albumin 2.2 L Lipase 62 Procalcitonin 0.57 H Crossmatch ([facility]) See Detail 08/08/22 08:06 WBC RBC Hgb Hct MCV MCH MCHC Plt Count VBG pH 7.484 H VBG pCO2 35 L VBG pO2 94.8 H VBG HCO3 26 Sodium Potassium Chloride Carbon Dioxide BUN Creatinine Estimated Creat Clear Estimated GFR Glucose Calcium Ionized Calcium [place] 1.12 Total Bilirubin AST ALT Alkaline Phosphatase Total Protein Albumin Lipase Procalcitonin Crossmatch ([facility])
[2022-08-08 15:39] LABS: Troponin I* 0.04 ng/mL (0.01-0.04)
[2022-08-08 15:40] LABS: C Reactive Protein* 14.8 mg/dL (0.5-1.0)
--- NOTE | 2022-08-08 16:30 | PC.NURSE ---
Nursing Care Hours:[id number] Pt this shift calm and cooperative with cares. Declined walking with commercial insurance underwriter in the halls, but did sit up in chair for breakfast and sat up at edge of bed for lunch. Pimrose drain in upper glutes continues to drain serosanguineous fluid, small amount. End of shift, new absorbant pad placed and area cleaned with wound Vosh solution. Area red and soft, decreased pain since surgery per pt. Vaseline with cotton ball to R nare per MD request to prevent bloody nose. PU to coccyx, open and light pink. Area washed and Mepilex applied.
--- NOTE | 2022-08-08 18:05 | PC.NURSE ---
PATIENT PLEASANT AND COOPERATIVE, [place], UP A1 WALKER AND BELT, NEEDS REMINDERS TO SHIFT WEIGHT IN BED AND TO SHIFT WEIGHT OFTEN, FAMILY PRESENT THIS AFTERNOON, DECLINING PAIN.
[2022-08-08] MEDS: ROSUVASTATIN CALCIUM 10 MG TABLET 20 MG PO (20:46)
[2022-08-09] VITALS (7 sets, daily range): BP systolic 120–157; BP diastolic 63–99; PULSE 76–91; RESP 16–18; TEMP 35.9–36.8; O2SAT 95–98
--- NOTE | 2022-08-09 05:32 | PC.NURSE ---
[id number] Pt slept all shift, turn and repo q2-3 hours, denies pain. ABD dressing to coccyx changed x1 due to drainage.
[2022-08-09 06:52] LABS: Hematocrit 34.7 % (37.0-53.0); Hemoglobin* 11.5 gm/dL (13.5-17.5); Mean Corpuscular HGB Conc 33 gm/dL (32-36); Mean Corpuscular Hemoglobin 31 pg (26-34); Mean Corpuscular Volume 92 fL (80-100); Platelet Count* 396 K/uL (140-440); Red Blood Count 3.76 m/uL (4.30-5.90); White Blood Count* 8.06 K/uL (4.50-11.00)
[2022-08-09 06:56] LABS: Slide Review Reflex No
[2022-08-09 07:18] LABS: Albumin* 2.6 g/dL (3.3-5.0); Chloride* 110 mmol/L (96-114)
[2022-08-09 07:19] LABS: Potassium* 3.8 mmol/L (3.6-5.1); Sodium* 135 mmol/L (135-149)
[2022-08-09 07:21] LABS: Creatinine* 0.9 mg/dL (0.5-1.5); Est. Creatinine Clearance* 54.88; Estimated Glomerular Filt Rate 89 ml/min
[2022-08-09 07:22] LABS: Alanine Aminotransferase* 54 U/L (4-50); Alkaline Phosphatase* 114 U/L (40-150); Aspartate Amino Transferase* 81 U/L (12-35); Bilirubin Total* 0.3 mg/dL (0.1-1.5); Blood Urea Nitrogen* 15 mg/dL (7-30); Calcium* 7.8 mg/dL (8.4-10.6); Carbon Dioxide* 24 mmol/L (20-32); Glucose* 145 mg/dL (60-115); Total Protein* 5.9 g/dL (6.0-8.3)
[2022-08-09 07:25] LABS: C Reactive Protein* 7.5 mg/dL (0.5-1.0)
[2022-08-09 07:34] LABS: Troponin I* 0.04 ng/mL (0.01-0.04)
[2022-08-09 07:39] LABS: Procalcitonin* 0.34 ng/mL (<0.50)
[2022-08-09] MEDS: CITALOPRAM HYDROBROMIDE 20 MG TABLET 10 MG PO (08:26)
[2022-08-09] MEDS: APIXABAN 5 MG TABLET PO ×2 (08:27→21:36)
[2022-08-09] MEDS: MULTIVITAMIN/MINERALS 1 TABLET 1 TAB PO (08:27)
[2022-08-09] MEDS: FERROUS SULFATE 325 MG TABLET PO (08:27)
[2022-08-09] MEDS: METOPROLOL SUCCINATE (XL) 25 MG TAB PO (08:27)
[2022-08-09] MEDS: SENNOSIDES/DOCUSATE TABLET 1 TAB PO ×2 (08:28→21:36)
--- NOTE | 2022-08-09 10:12 | PM.GSPN ---
Subjective Subjective Date Seen: 08/09/22 Interval history: Patient is doing well this morning. Denies any pain. Continues to pass gas and had a bowel movement yesterday. No fevers or chills. Exam Narrative: Exam Narrative: General: Alert and oriented, no acute distress. Nontoxic in appearance : Normal external male genitalia. Duncan is in place. Posterior midline erythema and induration has improved, area is soft and nontender to palpation. Moderate amount of serosanguineous drainage on the dressing. Amber drain was removed at bedside without difficulty. Sacral decubitus ulcer is covered with Mepilex dressing. Const: Vital Signs, click to edit/add: Vital Signs - 24 hr 08/08/22 11:00 08/08/22 15:00 08/08/22 15:00 Temperature 97.7 F 97.7 F Pulse Rate [Right Pulse Oximeter] 88 82 Pulse Rate [orthos tatic lying] Pulse Rate [orthos tatic sitting] Pulse Rate [orthos tatic standing] Respiratory Rate 18 18 16 Blood Pressure [Le ft Arm] Blood Pressure [Ri ght Arm] 135/85 149/79 H Blood Pressure [or thostatic lying] Blood Pressure [or thostatic sitting] Blood Pressure [or thostatic standing ] Pulse Oximetry 98 99 99 Oxygen Delivery Me thod Room Air Room Air Room Air 08/08/22 19:00 08/08/22 22:36 08/09/22 03:00 Temperature 97.6 F 97.8 F Pulse Rate [Right Pulse Oximeter] 79 79 Pulse Rate [orthos tatic lying] Pulse Rate [orthos tatic sitting] Pulse Rate [orthos tatic standing] Respiratory Rate 16 16 16 Blood Pressure [Le ft Arm] 140/82 H 129/71 Blood Pressure [Ri ght Arm] 140/82 H Blood Pressure [or thostatic lying] Blood Pressure [or thostatic sitting] Blood Pressure [or thostatic standing ] Pulse Oximetry 97 97 95 Oxygen Delivery Me thod Room Air Room Air Room Air 08/09/22 06:00 08/09/22 07:00 08/09/22 07:00 Temperature Pulse Rate [Right Pulse Oximeter] 77 Pulse Rate [orthos tatic lying] 76 Pulse Rate [orthos tatic sitting] 78 Pulse Rate [orthos tatic standing] 84 Respiratory Rate 16 16 Blood Pressure [Le ft Arm] Blood Pressure [Ri ght Arm] Blood Pressure [or thostatic lying] 150/76 H Blood Pressure [or thostatic sitting] 138/72 Blood Pressure [or thostatic standing ] 146/63 H Pulse Oximetry 97 Oxygen Delivery Me thod Room Air 08/09/22 07:00 Temperature 98.2 F Pulse Rate [Right Pulse Oximeter] 77 Pulse Rate [orthos tatic lying] Pulse Rate [orthos tatic sitting] Pulse Rate [orthos tatic standing] Respiratory Rate 16 Blood Pressure [Le ft Arm] Blood Pressure [Ri ght Arm] 150/99 H Blood Pressure [or thostatic lying] Blood Pressure [or thostatic sitting] Blood Pressure [or thostatic standing ] Pulse Oximetry 97 Oxygen Delivery Me thod Room Air Progress Note: A&P Assessment and plan (1) Perianal abscess: Problem details: I/D 08/07/2022. Blood cultures positive. Continue IV ertapenem Status: Acute Assessment and Plan: Patient is POD2 I&D ischiorectal abscess drainage. Afebrile overnight, vitals stable and WBC now normal. Amber drain was removed at bedside with patient tolerating well. Recommend that he keep the area clean and soak in a bath as able. Will plan for a course of antibiotics per hospitalist. Okay to discharge from a surgical perspective.
[2022-08-09] MEDS: LACTATED RINGERS 1000 ML 1,000 ML 75 ML IV (11:53)
[2022-08-09] MEDS: ERTAPENEM 1 GM in 0.9 % SODIUM CHLORIDE Mini-bag 100 ML IVPB (11:53)
[2022-08-09] MEDS: 0.9 % SODIUM CHLORIDE 250 ml IV (11:54)
--- NOTE | 2022-08-09 15:41 | PM.IMPN1 ---
Progress Note: A&P Assessment and plan (1) Perianal abscess: Problem details: I/D 08/07/2022. Blood cultures positive. Continue IV ertapenem when cultures are finalized we can switch to an oral. Status: Acute (2) Decubitus ulcer: Problem details: stage 1 left heel, stage1-2 on sacrum. wound care requested. Status: Acute (3) Depression: Problem details: starting celexa 10mg for depression and anxiety/agitation. Status: Acute (4) Demand ischemia: Problem details: Resolved Status: Acute (5) ABLA (acute blood loss anemia): Problem details: Epistaxis. ENT did stop by and give recommendations. Trend hemoglobin. Replace as needed. Resolved. Hemoglobin stable. 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 Reviewed previous imaging from last admission. Continue Eliquis. - followed by PT and OT during stay, return to [facility] this week Status: Acute (7) Pulmonary emboli: Problem details: - diagnosed on admission CT 07/21 - Eliquis initiated on last admission, EGD normal on 07/21. continue current dose with superficial mucosal care of nare. Status: Acute Subjective Date Seen: 08/09/22 Interval history: Daily Progress Note - Hospital Medicine Day #: 5 Day 4 of ertapenem 1 gram q 24 CC: ABLA for epistaxis, s/p 5 units RBC -perirectal abscess. s/p I/D 08/07/22. gram neg bacteremia. OVERNIGHT UPDATES FROM STAFF & MED, LAB, IMAGING UPDATES Ryder has had a stable night. He is still getting some purulent drainage from his I and D. no new fevers. Dr. Hernadez was able to pull drains today. I've d/c his beltran. I have reviewed his vital signs and weight. All stable. His CBC reflects a normal white blood cell count. His hemoglobin is stable. There has been noted bleeding. His platelets are stable and less reactive. His electrolytes are all looking normal with a normal renal function. His CRP continues to down trend as does his procalcitonin. His initial blood cultures are growing Gram-negative rods. G stain on his wound culture is not yet finalized either. The follow-up blood cultures are showing no growth. Both blood cultures are growing gram negative rods as is his wound culture Review of Systems: See subjective Cardiac: No new chest pain/pressure/palpitations. Respiratory: no new dyspnea. GI: No abdominal bloating msk: heel pain from dec ulcer Objective: Single more tired today. But upbeat and alert. Vitals: see above Lungs: Clear. Cardiac: S1S2. Deferred rectal exam Disposition/Potential discharge - Likely to return to [facility] facility Total time is 35 minutes with greater than 50% spent in counseling and coordination of care. Exam Const: Vital Signs, click to edit/add: Vital Signs - 24 hr 08/08/22 19:00 08/08/22 22:36 08/09/22 03:00 Temperature 97.6 F 97.8 F Pulse Rate [Right Pulse Oximeter] 79 79 Pulse Rate [orthos tatic lying] Pulse Rate [orthos tatic sitting] Pulse Rate [orthos tatic standing] Respiratory Rate 16 16 16 Blood Pressure [Le ft Arm] 140/82 H 129/71 Blood Pressure [Ri ght Arm] 140/82 H Blood Pressure [or thostatic lying] Blood Pressure [or thostatic sitting] Blood Pressure [or thostatic standing ] Pulse Oximetry 97 97 95 Oxygen Delivery Me thod Room Air Room Air Room Air 08/09/22 06:00 08/09/22 07:00 08/09/22 07:00 Temperature Pulse Rate [Right Pulse Oximeter] 77 Pulse Rate [orthos tatic lying] 76 Pulse Rate [orthos tatic sitting] 78 Pulse Rate [orthos tatic standing] 84 Respiratory Rate 16 16 Blood Pressure [Le ft Arm] Blood Pressure [Ri ght Arm] Blood Pressure [or thostatic lying] 150/76 H Blood Pressure [or thostatic sitting] 138/72 Blood Pressure [or thostatic standing ] 146/63 H Pulse Oximetry 97 Oxygen Delivery Me thod Room Air 08/09/22 07:00 08/09/22 11:00 Temperature 98.2 F 98.1 F Pulse Rate [Right Pulse Oximeter] 77 77 Pulse Rate [orthos tatic lying] Pulse Rate [orthos tatic sitting] Pulse Rate [orthos tatic standing] Respiratory Rate 16 16 Blood Pressure [Le ft Arm] Blood Pressure [Ri ght Arm] 150/99 H 144/78 H Blood Pressure [or thostatic lying] Blood Pressure [or thostatic sitting] Blood Pressure [or thostatic standing ] Pulse Oximetry 97 98 Oxygen Delivery Me thod Room Air Room Air Labs Labs: Laboratory Results - last 24 hr 08/08/22 08/09/22 08/09/22 08:06 06:26 06:26 WBC 8.06 RBC 3.76 L Hgb 11.5 L Hct 34.7 L MCV 92 MCH 31 MCHC 33 Plt Count 396 Sodium 135 Potassium 3.8 Chloride 110 Carbon Dioxide 24 BUN 15 Creatinine 0.9 Estimated Creat Clear 54.88 Estimated GFR 89 Glucose 145 H Calcium 7.8 L Total Bilirubin 0.3 AST 81 H ALT 54 H Alkaline Phosphatase 114 Troponin I 0.04 0.04 C-Reactive Protein 14.8 H 7.5 H Total Protein 5.9 L Albumin 2.6 L Procalcitonin 0.34
[2022-08-09] MEDS: ROSUVASTATIN CALCIUM 10 MG TABLET 20 MG PO (21:36)
--- NOTE | 2022-08-09 22:12 | PC.NURSE ---
Shift note: Pt was doing well at the start of the shift until around 1730 after he wake up from where becomes confused and disoriented. Able to state his name, recognized family members but disoriented to place and situation. CMS intact. Pt daughter came to offer help and re-oriented pt. Pt was move from 278 to 247 for easy monitoring. Slept again at 2030. Pt was very came and appears oriented when leader writer wake him up at 2200 for his medications. A1 to and from BR and recliner. Denied any pain. Pt had incontinent urine after urinary catheter removal.
[2022-08-10] VITALS (12 sets, daily range): BP systolic 147–178; BP diastolic 73–102; PULSE 76–95; RESP 16–80; TEMP 36.1–36.6; O2SAT 95–98
[2022-08-10] MEDS: LACTATED RINGERS 1000 ML 1,000 ML 75 ML IV (02:10)
--- NOTE | 2022-08-10 04:58 | PC.NURSE ---
[id number] and time during shift, seeing things in his room, was grabbing for and eating cereal, asking where's peanut (his cat), took time to reorientate pt but pt had difficulty. Up to br every 2-3 hours, incontinent urine each time, changed amb dressing to coccyx along with brief, cleaned area first. Ambulated with walker, GB, and 1 assist, pt does not lift up his feet well while walking.
[2022-08-10 07:02] LABS: Hemoglobin* 12.1 gm/dL (13.5-17.5)
--- NOTE | 2022-08-10 07:35 | CRLHL7_ITS ---
For Patients: As a result of the Century Cures Act, medical imaging exams and procedure reports are released immediately into your electronic medical record. You may view this report before your referring provider. If you have questions, please contact your health care provider. INDICATION : Trauma. TECHNIQUE : CT scan of the cervical spine. Bone and soft tissue windows with sagittal and coronal reconstructions. FINDINGS : No significant fracture. No significant subluxation. No abnormal soft tissue mass lesions. No significant lesions are visualized within included lung carmen. Multilevel mild disc degeneration and cervical facet arthrosis with no significant central or foraminal high-grade compromise. Minimal disc space narrowing C4-C5. Minimal inflammatory chronic sclerotic changes of the inferior left mastoid. Parenchymal scarring is present in the lung apices. There are atherosclerotic calcifications in the carotid bifurcation. IMPRESSION : Negative for acute fracture or subluxation. Degenerative and chronic changes are described above Please note that all CT scans at this facility use dose modulation, iterative reconstruction, and/or weight-based dosing when appropriate to reduce radiation dose to as low as reasonably achievable. Dictated by Ermias Ulloa MD @ 08/10/2022 8:37:16 AM (Electronically Signed)
--- NOTE | 2022-08-10 07:35 | CRLHL7_ITS ---
For Patients: As a result of the Century Cures Act, medical imaging exams and procedure reports are released immediately into your electronic medical record. You may view this report before your referring provider. If you have questions, please contact your health care provider. INDICATION: Fall. On blood thinners. TECHNIQUE: CT scan of the brain was performed without contrast. FINDINGS: Brain: Symmetric decreased attenuation periventricular white matter No mass lesion or midline shift. No signs of intra-axial hemorrhage. Ventricles are normal in size and configuration. Extra-axial spaces: Prominent extra-axial spaces no signs for hemorrhage Calvarium: Unremarkable. Miscellaneous:Fluid level in the sphenoid sinus. Vascular calcifications in the carotid siphon. IMPRESSION: 1. Cerebral volume loss and central white matter microvascular chronic ischemic changes with low-attenuation. 2. Brain shows no significant change from the prior exam 08/04/2022. 3. No sign of acute intra or extra-axial hemorrhage. 4. There is a new fluid level in the sphenoid sinus correlate with any inflammatory symptoms or sinusitis. The density is nonhemorrhagic approximately 0 Hounsfield units. Could also be mucus. Please note that all CT scans at this facility use dose modulation, iterative reconstruction, and/or weight-based dosing when appropriate to reduce radiation dose to as low as reasonably achievable. Dictated by Ermias Ulloa MD @ 08/10/2022 8:31:38 AM (Electronically Signed)
[2022-08-10 07:40] LABS: C Reactive Protein* 4.2 mg/dL (0.5-1.0)
[2022-08-10 07:48] LABS: Procalcitonin* 0.22 ng/mL (<0.50)
[2022-08-10 09:37] LABS: Albumin* 2.8 g/dL (3.3-5.0); Chloride* 109 mmol/L (96-114); Sodium* 137 mmol/L (135-149)
[2022-08-10 09:39] LABS: Creatinine* 0.9 mg/dL (0.5-1.5); Est. Creatinine Clearance* 54.91; Estimated Glomerular Filt Rate 89 ml/min
[2022-08-10 09:40] LABS: Alanine Aminotransferase* 57 U/L (4-50); Alkaline Phosphatase* 111 U/L (40-150); Aspartate Amino Transferase* 72 U/L (12-35); Bilirubin Total* 0.4 mg/dL (0.1-1.5); Blood Urea Nitrogen* 14 mg/dL (7-30); Carbon Dioxide* 23 mmol/L (20-32); Glucose* 98 mg/dL (60-115); Total Protein* 6.3 g/dL (6.0-8.3)
[2022-08-10 09:41] LABS: Calcium* 8.4 mg/dL (8.4-10.6)
[2022-08-10] MEDS: CITALOPRAM HYDROBROMIDE 20 MG TABLET 10 MG PO (10:29)
[2022-08-10] MEDS: SENNOSIDES/DOCUSATE TABLET 1 TAB PO ×2 (10:30→20:37)
[2022-08-10] MEDS: MULTIVITAMIN/MINERALS 1 TABLET 1 TAB PO (10:30)
[2022-08-10] MEDS: METOPROLOL SUCCINATE (XL) 25 MG TAB PO (10:30)
[2022-08-10] MEDS: FERROUS SULFATE 325 MG TABLET PO (10:30)
[2022-08-10] MEDS: APIXABAN 5 MG TABLET PO (10:30)
[2022-08-10] MEDS: 0.9 % SODIUM CHLORIDE 250 ml IV (11:56)
[2022-08-10] MEDS: ERTAPENEM 1 GM in 0.9 % SODIUM CHLORIDE Mini-bag 100 ML IVPB (11:56)
--- NOTE | 2022-08-10 14:39 | PM.IMPN1 ---
Progress Note: A&P Assessment and plan (1) Perianal abscess: Problem details: I/D 08/07/2022. Blood cultures positive. Continue IV ertapenem when cultures are finalized we can switch to an oral. Awaiting culture and sensitivity Status: Acute (2) Delirium: Problem details: Will add Seroquel, continue PT and OT, limit interventions/redirection Status: Acute (3) Fall during current hospitalization: Problem details: See separate encounter. Small lack to the back of his head that was glued. Status: Acute (4) ABLA (acute blood loss anemia): Problem details: Epistaxis. ENT did stop by and give recommendations. Trend hemoglobin. Replace as needed. Resolved. Hemoglobin stable. Status: Acute (5) Apraxic gait: Problem details: Continue PT and OT Status: Acute (6) Depression: Problem details: starting celexa 10mg for depression and anxiety/agitation. Status: Acute (7) Decubitus ulcer: Problem details: stage 1 left heel, stage1-2 on sacrum. wound care requested. Status: Acute (8) Demand ischemia: Problem details: Resolved Status: Acute (9) Cerebellar stroke: Problem details: - right cerebellar lacunar - acute on chronic findings. Reviewed previous imaging from last admission. Continue Eliquis. - followed by PT and OT during stay, return to [facility] this week Status: Acute (10) Pulmonary emboli: Problem details: - diagnosed on admission CT 07/21 - Eliquis initiated on last admission, EGD normal on 07/21. continue current dose with superficial mucosal care of nare. Status: Acute Subjective Date Seen: 08/10/22 Interval history: SEE SEPARATE NOTE REGARDING A FALL THIS MORNING FROM BED Daily Progress Note - Hospital Medicine Day #: 6 Day 5 of ertapenem 1 gram q 24 CC: ABLA for epistaxis, s/p 5 units RBC -perirectal abscess. s/p I/D 08/07/22. gram neg bacteremia. OVERNIGHT UPDATES FROM STAFF & MED, LAB, IMAGING UPDATES Ryder had a rough night. He started hallucinating and having what is likely a hospital-acquired delirium, he became a little more impulsive trying to get out assistance. Vital signs were stable. Today he has been mildly confused and asking to go home. His blood pressure is elevated. He is afebrile. He is not on oxygen. Hemoglobin is stable. His liver enzymes are down trending and his inflammatory markers are down trending. His Gram-negative rods are still awaiting ID and sensitivity Both blood cultures are growing gram negative rods as is his wound culture Review of Systems: See subjective Cardiac: No new chest pain/pressure/palpitations. Respiratory: no new dyspnea. GI: No abdominal bloating msk: heel pain from dec ulcer Objective: Can follow commands. Although he seems to be mildly agitated and forgetful. Vitals: see above Lungs: Clear. Cardiac: S1S2. Much improved as far as erythema and fluctuance. Disposition/Potential discharge - Likely to return to halfway facility Total time is 35 minutes with greater than 50% spent in counseling and coordination of care. Exam Const: Vital Signs, click to edit/add: Vital Signs - 24 hr 08/09/22 15:00 08/09/22 15:00 08/09/22 19:00 Temperature 96.7 F L 96.6 F L Pulse Rate [Right Pulse Oximeter] 78 91 Pulse Rate [orthos tatic lying] Pulse Rate [orthos tatic sitting] Pulse Rate [orthos tatic standing] Respiratory Rate 16 16 16 Blood Pressure [Le ft Arm] 120/73 150/87 H Blood Pressure [Ri ght Arm] Blood Pressure [or thostatic lying] Blood Pressure [or thostatic sitting] Blood Pressure [or thostatic standing ] Pulse Oximetry 98 97 98 Oxygen Delivery Me thod Room Air Room Air Room Air 08/09/22 23:00 08/09/22 23:00 08/10/22 03:00 Temperature 97.2 F L 97.3 F L Pulse Rate [Right Pulse Oximeter] 88 84 Pulse Rate [orthos tatic lying] Pulse Rate [orthos tatic sitting] Pulse Rate [orthos tatic standing] Respiratory Rate 16 18 20 Blood Pressure [Le ft Arm] Blood Pressure [Ri ght Arm] 157/99 H 165/94 H Blood Pressure [or thostatic lying] Blood Pressure [or thostatic sitting] Blood Pressure [or thostatic standing ] Pulse Oximetry 98 96 97 Oxygen Delivery Me thod Room Air Room Air Room Air 08/10/22 06:00 08/10/22 07:15 Temperature Pulse Rate [Right Pulse Oximeter] Pulse Rate [orthos tatic lying] 81 Pulse Rate [orthos tatic sitting] 85 Pulse Rate [orthos tatic standing] 95 Respiratory Rate 20 Blood Pressure [Le ft Arm] Blood Pressure [Ri ght Arm] Blood Pressure [or thostatic lying] 158/85 H Blood Pressure [or thostatic sitting] 171/99 H Blood Pressure [or thostatic standing ] 157/89 H Pulse Oximetry 97 Oxygen Delivery Me thod Room Air Labs Labs: Laboratory Results - last 24 hr 08/10/22 08/10/22 08/10/22 05:35 05:35 05:35 Hgb 12.1 L Sodium 137 Potassium 4.0 Chloride 109 Carbon Dioxide 23 BUN 14 Creatinine 0.9 Estimated Creat Clear 54.91 Estimated GFR 89 Glucose 98 Calcium 8.4 Total Bilirubin 0.4 AST 72 H ALT 57 H Alkaline Phosphatase 111 C-Reactive Protein 4.2 H Total Protein 6.3 Albumin 2.8 L Procalcitonin 0.22
--- NOTE | 2022-08-10 14:54 | P.EN_ITS ---
Chart Event Note Time Seen by Provider: 07:20 Date Seen: 08/10/22 Chart Event Note: FALL DURING HOSPITALIZATION, 07 ON 08/10/2022. Shortly after my arrival to the floor, staff and I heard Ryder calling out for help. He had previously moved from [facility] over to room [facility] for closer ob servation as he was having increasing delirium symptoms. Bed alarm and bed rail should have been in place. However, these were not. Patient was able to get out of bed and from where we found him on the floor probably took a couple of steps and lost his footing. He was found on his back by the foot of the bed. We initiated a trauma call shortly after. I am grateful for the assistance of the greenhouse technician, ED doc and the rest of our staff. C-spine positioning was maintained, C-collar was applied. Initial exam revealed no obvious injuries other than a small laceration to the back of his head that was bleeding. But not profusely. His pupils were equal round and reactive. He was appropriate in his responses. No obvious signs of stroke. I did examine his ankles, knees, hip joints, abdomen, wrists, shoulder rotation, palpated and visualized his back. Other than the small laceration no other injury was noted. Patient is known to be recovering from Gram-negative bacteremia and has had a history of a stroke with known AFib. He is on a chronic anticoagulation. He was transferred with a trauma board to the [facility] from Radiology. He was taken directly down for head CT and C-spine CT. These were negative for acute findings. I was able to use Dermabond and glued the small 0.5 cm linear laceration on the back of his head for hemostasis. He was then moved to room [facility] for even further observation. We assured bed alarms and guard rails and direct visualization were pursued. Throughout the day Ryder has been intermittently delirious but his exam has been stable.
--- NOTE | 2022-08-10 15:36 | PC.NURSE ---
AT BEGINNING OF SHIFT, PATIENT YELLED OUT FROM ROOM AND WAS FOUND TO BE ON FLOOR. LACERATION NOTED TO BACK OF HEAD WITH SMALL AMOUNT OF BLOOD. DR. CENTENO TO ROOM. C-COLLAR APPLIED AND PATIENT SENT TO CT SCAN. PATIENT ORIENTED TO PLACE AND SELF BUT AGITATED AND STATING HE NEEDED TO GO HOME. REFUSED BREAKFAST. PERRLA. PATIENT UNSTEADY WHEN UP AND NEEDS FREQUENT REDIRECTION WITH ACTIVITY. INCONTINENT OF URINE. UP WITH HEAVY A2, WALKER AND GAIT BELT. PATIENT DID AGREE TO EAT LUNCH WITH DAUGHTER PRESENT.
[2022-08-10] MEDS: ROSUVASTATIN CALCIUM 10 MG TABLET 20 MG PO (20:37)
--- NOTE | 2022-08-10 22:08 | PC.NURSE ---
very pleasent and cooporative with daughter here. she is spending the night.
--- NOTE | 2022-08-10 22:14 | PC.NURSE ---
Katie COAL FEEDER OPERATOR wound care to see pt tomorrow re stage 1 lt heal wound. and state 1-2 coccyx wound. mepolex on coccyx. dry and intact.
[2022-08-11] MEDS: APIXABAN 5 MG TABLET PO ×2 (00:23→08:49)
[2022-08-11 03:00] VITALS: RESP 20
[2022-08-11] MEDS: QUETIAPINE 25 MG TABLET 12.5 MG PO (06:57)
[2022-08-11 07:00] VITALS: BP 175/99; PULSE 92; RESP 20; TEMP 36.1; O2SAT 99
--- NOTE | 2022-08-11 07:49 | PC.NURSE ---
07:A x 1 with gb and walker, unsteady on feet. incont of B&B, 3x brief changes. mepi to left heal and buttock. Per pts dtr jannette, pt woke at least once an hour during the night and asked about his family. Pt told commercial underwriter that bats were in the room once in a while. Pt pleasant throughout majority of shift. Pt woke around 0530 and was disoriented. 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 Unable to reorient pt. He became angry and teary eyed and was punching the bed. Jannette said ?this is what we have been dealing with?. Jannette seems to be very supportive. Pt shouts at jannette during arguments, jannette remains calm however very difficult to calm patient. Seroquel given at end of shift. ? Pt refused VS and Orthostatic BPs Bed alarm on. Pt set off bed alarm 3x, pt was sitting at bedside upon entering room each time. ? ?
[2022-08-11] MEDS: CITALOPRAM HYDROBROMIDE 20 MG TABLET 10 MG PO (08:47)
[2022-08-11] MEDS: METOPROLOL SUCCINATE (XL) 25 MG TAB PO (08:47)
[2022-08-11] MEDS: FERROUS SULFATE 325 MG TABLET PO (08:47)
[2022-08-11] MEDS: MULTIVITAMIN/MINERALS 1 TABLET 1 TAB PO (08:47)
[2022-08-11] MEDS: SENNOSIDES/DOCUSATE TABLET 1 TAB PO (08:50)
[2022-08-11] MEDS: QUETIAPINE 25 MG TABLET PO (09:07)
--- NOTE | 2022-08-11 10:20 | P.DS_ITS ---
DS: Providers Provider Date Seen: 08/11/22 Date of admission: 08/05/22 15:43 Primary care physician: Stuart Apple MD Admitting Clinician: Rosa Maria Driscoll MD Consults: 08/05/22 15:43 Consult to Occupational Therapy [CONS] Routine Comment: Reason(s) for OT Consult:: Evaluate and Treat Any Restrictions?:: No Restrictions Consult to Physical Therapy [CONS] Routine Comment: Reason(s) for PT Consult:: Evaluate and Treat Any Restrictions?:: No Restrictions Consult to [employer] [CONS] Routine Comment: Reason for Consult:: Social Service Consult Attending Physician on discharge: Rosa Maria Driscoll MD Date of Discharge: 08/11/22 DS: Diagnosis Discharge Diagnosis (1) ABLA (acute blood loss anemia): Status: Acute Problem details: s/p epistaxis - right nare was source . ENT did stop by and give recommendations. Trend hemoglobin. Replace as needed. Resolved. Hemoglobin stable. (2) Perianal abscess: Status: Acute Problem details: I/D 08/07/2022. Blood cultures positive. Continue IV ertapenem when cultures are finalized we can switch to an oral. Awaiting culture and sensitivity (3) Delirium: Status: Acute Problem details: Will add Seroquel, continue PT and OT, limit interventions/redirection (4) Decubitus ulcer: Status: Acute Problem details: stage 1 left heel, stage1-2 on sacrum. wound care requested. (5) Apraxic gait: Status: Acute Problem details: Continue PT and OT (6) Fall during current hospitalization: Status: Acute Problem details: See separate encounter. Small lac to the back of his head that was glued. (7) Cerebellar stroke: Status: Acute Problem details: - right cerebellar lacunar (1st admission in 07/31) - Continue Eliquis. - followed by PT and OT @ SNF (8) Pulmonary emboli: Status: Acute Problem details: - diagnosed on admission CT 07/21 - Eliquis initiated and while 2nd admission was for untoward side effect (anemia from ABLA - epistaxis) - we felt this medication should be continued. (9) Demand ischemia: Status: Acute Problem details: Resolved DS: Summary Hospital Course Hospital Course: HOSPITALIST DISCHARGE SUMMARY ATTENDING PHYSICIAN: Rosa Maria Driscoll MD FINAL DIAGNOSIS: Epistaxis - right nare. Perirectal abscess - status post incision and drainage Gram-negative bacteremia Delirium Dementia HOSPITAL FOLLOWUP ISSUES: 1. Acute blood loss anemia. In profoundly anemic and was transfused. Source was likely his right nostril, epistaxis. His Eliquis is important and risk benefit ratio he was continued on his Eliquis. ENT did see him bedside and recommended Vaseline cotton ball and would happily see him in the clinic. No intervention, i.e. cautery, was needed. 2. Perirectal abscess - identified after a leukocytosis and inflammatory markers were noted. CT showed the abscess. He went to surgery. He had an I&D. He had Gram-negative bacteremia. He received IV ertapenem. He is being discharged on oral Augmentin. 3. Dementia with overlying delirium. Hospital acquired delirium is not uncommon in these cases. He does well with redirection, Seroquel and melatonin. We also started Celexa for mood. REFERRALS WHILE ADMITTED: General surgery, OT, PT REFERRALS AFTER DISCHARGE: [facility] rehab BRIEF HOSPITAL COURSE: 77-year-old Ryder was readmitted after a prolonged hospitalization earlier in July for a non-STEMI, stroke. At discharge he was on anticoagulation. He had intermittent epistaxis while at the care center. He presented with acute blood loss anemia. He was transfused. He had acute on chronic back pain, inflammatory markers and white blood cell count were noted to be high. No fever. His sung CT showed a rectal abscess. He did go to surgery and this was I indeed and a drain was placed. The drain was removed prior to discharge. He is progressing nicely from an abscess status point. He did have positive blood cultures, likely E coli although final cultures are still pending. Received IV ertapenem as the antibiotic. He is being transition to oral Augmentin at discharge. Unfortunately he also had hospital induced delirium. Is not unexpected for all the days he spent in the hospital this month and given his underlying cognitive decline. He did fall on the morning of 08/10/2022 sustaining a small laceration to the back of his head. He remains a high fall risk. With oral Seroquel, 25 mg b.i.d., Celexa 10 mg daily and melatonin 5-10 mg at night he was able to settle down and rest. We would consider him a high fall risk and in need of redirection p.r.n.. SUBSTANTIVE NOTATIONS ON IMAGING, LAB, MICROBIOLOGY/PATHOLOGY STUDIES: Discharge hemoglobin 12.1 Electrolytes were all normal LFTs were down trending CRP is down trending procalcitonin was down trending Chest abdomen pelvis CT done during admission for elevated white blood cell count Large multiloculated rim enhancing lesion in the anal rectal/sacral region. Differential includes necrotic tumor or abscess. Recommend correlation with clinical history and direct visualization. Moderate bilateral hydronephrosis without obstructing uropathy. Associated moderately dilated bladder with circumferential wall thickening. Recommend correlation with urinalysis for urinary tract infection. Re-demonstration of bibasilar tree-in-bud/ground-glass nodules with few residual cavitary lesions, significantly decreased since prior study. Tiny residual right lower lobe subsegmental PE. No new clot burden. Moderate colonic stool burden DISCHARGE MEDICATIONS: See Reconciled list - SIGNIFICANT CHANGES: Celexa, melatonin, Seroquel as outlined We increased his metoprolol and is reveals statin Short-term use of Augmentin for his previous abscess REVIEW OF SYSTEMS No new chest pain or dyspnea Pain controlled Incontinent of stool and urine Tolerating diet challenge PHYSICAL EXAM: CONSTITUTIONAL: Cranky. Redirectable. No acute distress. VITAL SIGNS: see record. HEENT: Normocephalic, atraumatic. PERRL, EOMI, conjunctivae pink, no scleral icterus. Ears and nose externally normal. Pharynx normal. NECK: No JVD. No carotid bruit, no thyromegaly, no adenopathy. CHEST: Clear to auscultation bilaterally. HEART: S1 and S2 normal. Edema none ABDOMEN: Soft, nontender. Normal bowel sounds. MUSCULOSKELETAL: No gross joint deformity or swelling. NEURO: Cranial nerves intact. Grossly intact. No asymmetric findings. SKIN: Decubitus ulcers on his sacrum and left heel. The should be continue to be addressed. His wound, to surgically opened areas around his rectum are open to drainage. PSYCHIATRIC: Mood euthymic. DISPOSITION: [facility] facility Time spent on discharge 37 minutes. . Status at Discharge Functional status at discharge: uses cane/walker Overall status at discharge: patient is progressing back to baseline Time Spent with Patient Time attestation: Total time spent providing and/or coordinating discharge services: Time spent: Greater than 30 minutes Exam Const: Vital Signs, click to edit/add: Vital Signs - 24 hr 08/10/22 12:30 08/10/22 11:50 08/10/22 16:00 Temperature 97.8 F Pulse Rate [Right Pulse Oximeter] 86 86 Respiratory Rate 20 20 Blood Pressure [Le ft Arm] Blood Pressure [Ri ght Arm] 160/86 H 174/96 H Pulse Oximetry 95 95 98 Oxygen Delivery Me thod Room Air Room Air Room Air 08/10/22 16:00 08/10/22 19:30 08/10/22 23:00 Temperature 97 F L 97 F L Pulse Rate [Right Pulse Oximeter] 78 76 84 Respiratory Rate 16 16 80 H Blood Pressure [Le ft Arm] 147/73 H Blood Pressure [Ri ght Arm] Pulse Oximetry 98 97 Oxygen Delivery Me thod Room Air Room Air 08/10/22 23:00 08/10/22 23:00 08/11/22 03:00 Temperature Pulse Rate [Right Pulse Oximeter] 84 Respiratory Rate 20 20 20 Blood Pressure [Le ft Arm] Blood Pressure [Ri ght Arm] 154/84 H Pulse Oximetry 97 97 Oxygen Delivery Me thod Room Air Room Air 08/11/22 07:00 08/11/22 07:00 08/11/22 07:00 Temperature 97 F L Pulse Rate [Right Pulse Oximeter] 92 92 Respiratory Rate 20 20 20 Blood Pressure [Le ft Arm] Blood Pressure [Ri ght Arm] 175/99 H Pulse Oximetry 99 99 Oxygen Delivery Me thod Room Air Room Air DS: Data Data Completed and Pending Completed studies during hospitalization: Procedures Inspection of Upper Intestinal Tract, Via Natural or Artificial Opening Endoscopic (07/21/22) Transfusion of Nonautologous Red Blood Cells into Peripheral Vein, Percutaneous Approach (07/21/22) Labs on day of discharge: Preliminary micro results at discharge 08/08/22 07:59 Blood Culture - Preliminary Blood NO GROWTH AFTER 72 HOURS 08/08/22 08:06 Blood Culture - Preliminary Blood NO GROWTH AFTER 72 HOURS 08/06/22 06:19 Blood Culture - Preliminary Blood Gram negative donna 08/06/22 06:10 Blood Culture - Preliminary Blood Gram negative donna 08/07/22 12:40 Anaerobic Culture - Preliminary Anus Discharge Plan Discharge Disposition: [facility] Date of Admission: 08/05/22 15:43 Attending Provider on Discharge: Rosa Maria Driscoll Primary Care Provider: Stuart Apple Condition: Stable Anticipated Discharge Date/Time: 08/11/22 09:00 Discharge Medications: New amoxicillin-pot clavulanate [Augmentin] 500-125 mg tablet 1 tab PO BID Qty: 10 0RF rosuvastatin [Crestor] 40 mg tablet 40 mg PO DAILY Qty: 30 0RF quetiapine [Seroquel] 25 mg tablet 25 mg PO BID PRN (Reason: agitation) Qty: 60 0RF metoprolol succinate [Toprol XL] 50 mg tablet extended release 24 hr 50 mg PO DAILY Qty: 30 0RF melatonin 10 mg tablet 10 mg PO HS PRN (Reason: sleep) Qty: 30 0RF citalopram 10 mg tablet 10 mg PO DAILY Qty: 30 0RF Continued acetaminophen [Tylenol Extra Strength] 500 mg tablet 1,000 mg PO Q6H PRN Men's Daily Formula 400-20-300 mcg tablet 1 tab PO DAILY Fiber Gummies 2 gram tablet,chewable 2 g PO DAILY ferrous sulfate 325 mg (65 mg iron) Tablet 325 mg PO DAILYWM Qty: 30 0RF Eliquis 5 mg Tablet 5 mg PO BID Qty: 60 1RF Discontinued metoprolol succinate 25 mg Tablet Extended Release 24 Hr 25 mg PO DAILY Qty: 30 0RF rosuvastatin 10 mg Tablet 20 mg PO HS Qty: 60 0RF Discharge Orders: Discharge Order (Routine); Ordered 08/11/22 Ordered By: Rosa Maria Driscoll Additional Instructions: 1. Rectal care (s/p abscess I/D) He should try soaks in a bathtub with Epsom salts for comfort - @NR - keep cleaned and wash with mild soap 2. Finish antibiotic (Augmentin twice a day for 5 days) 3. Delirium/Agitation/Cognitive decline - seroquel 25mg twice a day if needed - add melatonin at night. We also started Celexa for mood/agitation. 4. Increased his metoprolol and Rouvastatin 5. Continue therapies: post stroke (speech), PT/OT - we feel the left leg pain was related to abscess and he has the potential to walk and move much better now Activity Level: Up with assist and Other Activity Detail: Fall Risk Discharge Diet: Regular and Other Follow Up Appointments: Stuart Apple MD [Primary Care Provider] - Wound Care: rectal abscess s/p I/D - just keep clean and cleanse with mild soap. Admit to: SNF Discharge Potential: Fair Length of Stay: 30-90 days Can use facility standing orders?: Yes Code Status: DNR/DNI TEDs: N/A Rehab Potential: Fair Therapy: Physical Therapy, Occupational Therapy and Speech Therapy Therapy Orders: Evaluate and Treat Therapy Orders Additional Information: s/p stroke. s/p rectal abscess Oxygen: No Urinary Catheter: No Orders are good >30 days: Yes
--- NOTE | 2022-08-11 10:55 | PC.NURSE ---
Discharge: Pt. A x 1 with gb and walker, unsteady on feet. ?incont of B&B, 1x brief changes. mepi to left heal and buttock. DtrJose F Bhatia at bedside this AM. Seroquel given and pt. tolerated well. ? Pt. refused VS and weight initially but was able to help mediate and let pt. know he was leaving today to return to the [facility] but he needed to comply with a few things first. Bed alarm on. Pt. set off bed alarm 3x, pt was sitting at bedside upon entering room each time. IV removed intact. Discharge papers signed by dtr. Nurse to Nurse given to Emilia at [facility].
--- NOTE | 2022-08-11 13:50 | PC.SOCIAL ---
Pt. returned on a bed hold to [facility] today and daughter transported. Per [facility] pt.'s [facility] has denied pt.'s entire stay. Discussed this with pt.'s daughter and her mother is calling [facility] again today to appeal. Also gave an [place] application to pt.'s daughter. Pt.'s daughter transported pt. back.
== END 2022-08-11 10:45 | DRG 811 ==
LOC: ED 08-05 08:12 → MEDSURG 08-05 09:04
PROVIDERS: Internal Medicine; Surgery; Admitting Provider Family Medicine; Emergency Provider Internal Medicine; PCP Family Medicine; Visit Provider Family Medicine
PROC: 0D9Q0ZX Drainage of Anus, Open Approach, Diagnostic (ICD-10-PCS; CPT 46040; principal; 2022-08-07 11:50)
DX: D62 Acute posthemorrhagic anemia (principal); I21.A1 Myocardial infarction type 2; I26.99 Other pulmonary embolism without acute cor pulmonale; I63.9 Cerebral infarction, unspecified; D68.32 Hemorrhagic disorder due to extrinsic circulating anticoagulants; K61.0 Anal abscess; F03.911 Unspecified dementia, unspecified severity, with agitation; F05 Delirium due to known physiological condition; F03.94 Unspecified dementia, unspecified severity, with anxiety; N13.30 Unspecified hydronephrosis; R04.0 Epistaxis; T45.515A Adverse effect of anticoagulants, initial encounter; R53.1 Weakness; I10 Essential (primary) hypertension; L89.621 Pressure ulcer of left heel, stage 1; L89.152 Pressure ulcer of sacral region, stage 2; W18.30XA Fall on same level, unspecified, initial encounter; Y92.230 Patient room in hospital as the place of occurrence of the external cause; S01.01XA Laceration without foreign body of scalp, initial encounter; R48.2 Apraxia; R15.9 Full incontinence of feces; R32 Unspecified urinary incontinence; R47.81 Slurred speech; F41.9 Anxiety disorder, unspecified; F32.A Depression, unspecified; F17.210 Nicotine dependence, cigarettes, uncomplicated; Z86.73 Personal history of transient ischemic attack (TIA), and cerebral infarction without residual deficits; M48.02 Spinal stenosis, cervical region
CPT/HCPCS: 00902; 36415; 36430; 70450; 71046; 71260; 72125; 74177; 80048; 80053; 81001; 81003; 82330; 82803; 82977; 83605; 83690; 83735; 84145; 84484; 85018; 85025; 85027; 85610; 86140; 86850; 86900; 86901; 86922; 87040; 87076; 87086; 87181; 87205; 87502; 87634; 87635; 93005; 94761; 97110; 97116; 97161; 97165; 97530; 97535; 99100; 99284; 99285; G0378; A9153; A9270; J0330; J1335; J2704; J3010; J7050; J7120; P9016; Q9967

== ENCOUNTER 2022-09-15 14:40 | Outpatient (CLI) | payer MEDICARE, SELFPAY ==
[2022-09-15 19:17] LABS: Chloride* 110 mmol/L (96-114); Potassium* 3.7 mmol/L (3.6-5.1); Sodium* 140 mmol/L (135-149)
[2022-09-15 19:20] LABS: Carbon Dioxide* 22 mmol/L (20-32); Creatinine* 1.1 mg/dL (0.5-1.5); Estimated Glomerular Filt Rate 70 ml/min
[2022-09-15 19:21] LABS: Blood Urea Nitrogen* 24 mg/dL (7-30); Glucose* 215 mg/dL (60-115)
== END 2022-09-15 14:41 | disposition home or self-care (01) ==
LOC: LONREF 14:43
PROVIDERS: PCP Family Medicine; Visit Provider Family Medicine
DX: I10 Essential (primary) hypertension (principal)
CPT/HCPCS: 80048

== ENCOUNTER 2022-10-08 13:13 | Outpatient (CLI) | payer MEDICARE, SELFPAY | END 2022-10-08 13:14 | disposition home or self-care (01) | LOC: NFLDREF 10-16 12:25 | PROVIDERS: PCP Family Medicine; Referring Provider Family Medicine; Visit Provider Family Medicine | DX: I26.99 Other pulmonary embolism without acute cor pulmonale (principal) | CPT/HCPCS: 85610 ==

== ENCOUNTER 2022-10-27 07:51 | Outpatient (CLI) | payer MEDICARE, SELFPAY | END 2022-10-27 07:52 | disposition home or self-care (01) | LOC: AMB 10-29 21:44 | PROVIDERS: PCP Family Medicine; Visit Provider Family Medicine | DX: I46.9 Cardiac arrest, cause unspecified (principal) ==